=== PATIENT | female | born 2000 | race Caucasian/White ===

== ENCOUNTER 2019-11-01 16:00 | Emergency (ER) | payer OTHER, SELFPAY ==
--- NOTE | 2019-11-01 16:06 | ED.GENADULT ---
HPI - General Adult General Chief complaint: Upper Respiratory Infection Stated complaint: swollen glands/swollen ankles/no appetite/nausea Time Seen by Provider: 11/01/19 16:23 Source: patient Mode of arrival: ambulatory Limitations: no limitations History of Present Illness HPI narrative: 19-year-old female patient presents to the the medical center with complaints of swollen glands for couple of weeks now as well as swelling to left ankle that she noticed yesterday. Patient states she is also had some itching to the back of the left ankle. Denies any fevers, chest pain, shortness of breath. Denies any ear pain, throat pain. Patient states that she has also had decreased appetite as well as just being feeling overall tired. Patient states she did see her primary doctor for this a couple weeks ago and originally they told her just to watch the swelling of the lymph nodes and see if it improves since she was negative for both mono and strep. Patient states that it continued not to improve and went back to see her doctor and they started her on some Bactrim. Patient states she has about 2 days left of the Bactrim but continues not to feel well with the same symptoms and then noticed that her left ankle was swelling. Patient denies or breast-feeding. Related Data Home Medications Medication Instructions Recorded Confirmed sulfamethoxazole-trimethoprim 1 tablet PO BID 11/01/19 11/01/19 Allergies Allergy/AdvReac Type Severity Reaction Status Date / Time No Known Allergies Allergy Unverified 11/01/19 16:33 Review of Systems Review of Systems: Narrative: CONSTITUTIONAL: Denies fever, chills, or sweats. Positive fatigue EYES: Denies visual changes, redness, or discharge. ENT: Denies rhinorrhea, congestion, sore throat, or otalgia. CARDIOVASCULAR: Denies chest pain, palpitations, or edema. RESPIRATORY: Denies cough or dyspnea. GASTROINTESTINAL: Denies abdominal pain, nausea, vomiting, or diarrhea. Positive decrease in appetite GENITOURINARY: Denies dysuria or hematuria. SKIN: Denies rash or itching. MUSCULOSKELETAL: Denies back pain, joint pain, or myalgia. Positive swelling left ankle NEUROLOGIC: Denies headache, numbness, or weakness. PSYCHIATRIC: Denies anxiety or depression. [facility] Past Medical History Medical History (Updated 11/01/19 @ 16:35 by Katie D. Lynn, LAWN SERVICE MANAGER) ADD (attention deficit disorder) Anxiety Bipolar disorder Depression Previous known suicide attempt Comments At the time of my signature I agree with nursing past medical history, surgical, social, and family history. There is no relevant family history pertinent to the presenting complaint. Exam Narrative: Exam Narrative: GENERAL: Well-appearing, well-nourished, and in no acute distress. HEAD: Normocephalic, atraumatic. EYES: PERRLA and EOMI. ENT: Nares clear, no rhinorrhea or epistaxis. Mucous membranes moist. Posterior pharynx no erythema, tonsil enlargement, exudates or lesions present. Bilateral TMs are clear with no erythema or foreign bodies in the canal. NECK: Supple. Very mild lymphadenopathy noted to bilateral anterior cervical nodes. CHEST: Clear to auscultation. No respiratory distress. Patient able talk clear complete sentences HEART: Regular rate and rhythm. No murmur heard. Normal peripheral pulses. ABDOMEN: Soft, nontender, nondistended, normal active bowel sounds. EXTREMITIES: Normal range of motion. Patient has very slight swelling noted to the left ankle as compared to the right. Patient does have a punctate rosales of his bug bite noted to the back of the ankle where she was complaining of the itching. There is no warmth present no surrounding erythema present. SKIN: Warm, dry, no rash. NEURO: No focal deficits. Alert and oriented x3. Course Vital Signs Vital signs: Vital Signs Temperature 36.7 C 11/01/19 16:18 Pulse Rate 77 11/01/19 16:18 Respiratory Rate 20 11/01/19 16:18 Blood Pressure 150/92 H 11/01/19 1
[2019-11-01 16:18] VITALS: BP 150/92; PULSE 77; RESP 20; TEMP 36.7; O2SAT 100
== END 2019-11-01 16:38 | disposition home or self-care (01) ==
PROVIDERS: Emergency Provider Nurse Practitioner Family; PCP Pediatrics
DX: R59.1 Generalized enlarged lymph nodes (principal); Z20.828 Contact with and (suspected) exposure to other viral communicable diseases
CPT/HCPCS: 99211; G0463

== ENCOUNTER 2020-01-10 13:39 | Emergency (ER) | payer OTHER, SELFPAY ==
--- NOTE | ~2020-01-10 | XR_ITS ---
EXAMINATION: XR toe 5th RT min 2V DATE: 01/10/2020 15:07 INDICATION: Right fifth toe swelling. Injury. TECHNIQUE: 3 views of right fifth toe were obtained. COMPARISON: None. FINDINGS: Bone alignment is normal. No fracture. Joint spaces are well maintained. IMPRESSION: 1. No fracture. Reviewed, dictated and finalized at location A. IMPRESSION: 1. No fracture.
--- NOTE | ~2020-01-10 | XR_ITS ---
XR forearm LT 2V DATE: 01/10/2020 15:07 INDICATION: Dropped a piece of wood on the arm. Left arm pain. TECHNIQUE: AP and lateral views COMPARISON: None FINDINGS: No fracture or dislocation, periosteal reaction or bone destruction or radiopaque foreign b augusto or subcutaneous emphysema. Normal alignment at the elbow and wrist joints. IMPRESSION: Negative Reviewed, dictated and finalized at location A. IMPRESSION: Negative
[2020-01-10 13:59] VITALS: BP 141/79; PULSE 65; RESP 20; TEMP 36.5; O2SAT 100
--- NOTE | 2020-01-10 14:49 | ED.GENADULT ---
HPI - General Adult General Chief complaint: Extremity Injury, Lower Stated complaint: right toe injury Time Seen by Provider: 01/10/20 14:49 Source: patient and RN notes reviewed Mode of arrival: ambulatory Limitations: no limitations History of Present Illness HPI narrative: 19-year-old female who presents to [facility] with complaints of pain to her right pinky toe and pain to left forearm patient states on 01/08/2020 she was struck by a large piece of wood on her forearm while at work at [employer] with noted swelling, ecchymosis and pain to dorsal region of the left forearm. Patient states today she hit her right pinky toe on the door at home and states pain rated as a 7 out of 10. Patient states she has been taking ibuprofen for her discomfort. MD complaint: Left forearm and right toe injury Onset (ago): day(s) Location: left, right, upper extremity and lower extremity Radiation: non-radiation Severity: moderate Severity scale (1-10): 5 Quality: aching Pain Consistency: constant Relieving factors: rest Exacerbating factors: movement Associated symptoms: denies other symptoms Treatments prior to arrival: NSAID Related Data Home Medications Medication Instructions Recorded Confirmed No Home Medications 01/10/20 01/10/20 Allergies Allergy/AdvReac Type Severity Reaction Status Date / Time No Known Allergies Allergy Verified 01/10/20 14:19 Review of Systems Review of Systems: Narrative: CONSTITUTIONAL: Denies fever, chills, or sweats. EYES: Denies visual changes, redness, or discharge. ENT: Denies rhinorrhea, congestion, sore throat, or otalgia. CARDIOVASCULAR: Denies chest pain, palpitations, or edema. RESPIRATORY: Denies cough or dyspnea. GASTROINTESTINAL: Denies abdominal pain, nausea, vomiting, or diarrhea. GENITOURINARY: Denies dysuria or hematuria. SKIN: Denies rash or itching. MUSCULOSKELETAL: Denies back pain,positive for left forearm pain and right 5th toe joint pain. NEUROLOGIC: Denies headache, numbness, or weakness. PSYCHIATRIC: Denies anxiety or depression. All systems reviewed & are unremarkable except as noted in HPI and below PMFSH Past Medical History Medical History (Updated 01/10/20 @ 15:48 by Lauren Acosta NP) ADD (attention deficit disorder) Anxiety Bipolar disorder Depression Previous known suicide attempt Surgical History Surgical History (Updated 01/10/20 @ 19:52 by Lauren Acosta NP) No history of previous surgery Social History Social History (Updated 01/10/20 @ 19:47 by Lauren Acosta NP) Tobacco type: e-cigarettes/vaping Living arrangements: with family Gender identity (if verbalized by the patient): Female Comments At time of signature, agree with nursing past medical, surgical, social history. There is no relevant family history pertinent to the presenting complaint Exam Narrative: Exam Narrative: GENERAL: Well-appearing, well-nourished, and in no acute distress. HEAD: Normocephalic, atraumatic. EYES: PERRLA and EOMI. ENT: Nares clear, no rhinorrhea or epistaxis. Mucous membranes moist. NECK: Supple.no lymphadenopathy CHEST: Clear to auscultation. No respiratory distress.SAO2 100% on room air HEART: Regular rate and rhythm. No murmur heard. Normal peripheral pulses. ABDOMEN: Soft, nontender, nondistended, normal active bowel sounds. EXTREMITIES: Normal range of motion.Pain and swelling to left forearm with bruising and discomfort, pain to right 5th toe where she hit her toe today on door. SKIN: Warm, dry, no rash. NEURO: No focal deficits. Alert and oriented x3. Course Vital Signs Vital signs: Vital Signs Temperature 36.5 C 01/10/20 13:59 Pulse Rate 65 01/10/20 13:59 Respiratory Rate 01/10/20 13:59 Blood Pressure 141/79 H 01/10/20 13:59 Pulse Oximetry 100 01/10/20 13:59 Temperature 36.5 C 01/10/20 13:59 Pulse Rate 65 01/10/20 13:59 Respiratory Rate 01/10/20 13:59 Blood Pressure 141/79 H 01/10/20 13:59
== END 2020-01-10 15:52 | disposition home or self-care (01) ==
PROVIDERS: Emergency Provider Registered Nurse
DX: S50.12XA Contusion of left forearm, initial encounter (principal); S93.504A Unspecified sprain of right lesser toe(s), initial encounter; W22.8XXA Striking against or struck by other objects, initial encounter
CPT/HCPCS: 73090; 73660; 99214; G0463

== ENCOUNTER 2020-02-24 17:04 | Emergency (ER) | payer OTHER, SELFPAY ==
--- NOTE | ~2020-02-24 | XR_ITS ---
EXAMINATION: XR abdomen/kub 1V DATE: 02/24/2020 17:38 INDICATION: Right lower quadrant abdominal pain. TECHNIQUE: A supine view of the abdomen on 2 radiographs was obtained. COMPARISON: CT abdomen and pelvis 10/16/2018 FINDINGS: There are no dilated loops of bowel. There is a small volume of stool in the colon. There i s no visible urolithiasis. IMPRESSION: 1. Normal bowel gas pattern. Reviewed, dictated and finalized at location A. ATIENT FACILITY PHYSICAL THERAPIST
[2020-02-24 17:16] VITALS: BP 126/68; PULSE 67; RESP 18; TEMP 36.4; O2SAT 100
--- NOTE | 2020-02-24 17:16 | ED.ABDPAIN ---
HPI - Abdominal Pain General Chief Complaint: Abdominal Pain Stated Complaint: Abdominal Pain Time Seen by Provider: 02/24/20 17:16 Source: patient and RN notes reviewed Mode of arrival: ambulatory Limitations: no limitations History of Present Illness HPI narrative: 19 year old female who presents to [facility] with epigastric abdominal pain located on the right side of mid abdomen area since last night. Patient states that she feels real bloated, has not had a bowel movement since the which she states is very unusual for her. Patient denies any nausea, vomiting or diarrhea, no fevers or any urinary symptoms. Patient states that her doctor suspects she may have IBS but has not been referred to GI specialist or had any testing done. MD elicited complaint: abdominal pain Pertinent past history: constipation Onset (ago): day(s) (1 day) Pain Consistency: constant Location: periumbilical Severity: moderate Pain scale (0-10): 6 Quality: cramping and sharp Radiation: none Migration to: no migration Exacerbating factors: nothing Associated symptoms: constipation and other (bloating) Related Data Date of Last Menstrual Period: 02/15/20 Patient : No Home Medications Medication Instructions Recorded Confirmed No Home Medications 01/10/20 01/10/20 Allergies Allergy/AdvReac Type Severity Reaction Status Date / Time No Known Allergies Allergy Verified 02/24/20 17:15 Review of Systems Review of Systems: Narrative: CONSTITUTIONAL: Denies fever, chills, or sweats. EYES: Denies visual changes, redness, or discharge. ENT: Denies rhinorrhea, congestion, sore throat, or otalgia. CARDIOVASCULAR: Denies chest pain, palpitations, or edema. RESPIRATORY: Denies cough or dyspnea. GASTROINTESTINAL: Positive for right sided gastric abdominal area, denies any nausea vomiting or diarrhea, patient denies any McBurney point tenderness. GENITOURINARY: Denies dysuria or hematuria. SKIN: Denies rash or itching. MUSCULOSKELETAL: Denies back pain, joint pain, or myalgia. NEUROLOGIC: Denies headache, numbness, or weakness. PSYCHIATRIC: Positive for history anxiety or depression. All systems reviewed & are unremarkable except as noted in HPI and below PMFSH Past Medical History Medical History (Updated 02/24/20 @ 18:42 by Lauren Acosta NP) ADD (attention deficit disorder) Anxiety Bipolar disorder Depression Previous known suicide attempt UTI (urinary tract infection) Surgical History Surgical History (Updated 01/10/20 @ 19:52 by Lauren Acosta NP) No history of previous surgery Social History Social History (Updated 02/24/20 @ 18:34 by Lauren Acosta NP) Tobacco type: e-cigarettes/vaping Living arrangements: with family Gender identity (if verbalized by the patient): Female Comments At time of signature, agree with nursing past medical, surgical, social history. There is no relevant family history pertinent to the presenting complaint Exam Narrative: Exam Narrative: GENERAL: Well-appearing, well-nourished, and in no acute distress. HEAD: Normocephalic, atraumatic. EYES: PERRLA and EOMI. ENT: Nares clear, no rhinorrhea or epistaxis. Mucous membranes moist. NECK: Supple.no lymphadenopathy CHEST: Clear to auscultation. No respiratory distress. HEART: Regular rate and rhythm. No murmur heard. Normal peripheral pulses. ABDOMEN: Soft, tender to right mid gastric area, nondistended, patient states she feels bloated and she has not had any stool since the 20 of February,active bowel sounds noted with negative McBurney point tenderness. Patient denies any urinary symptoms with no suprapubic tenderness. EXTREMITIES: Normal range of motion. No edema. SKIN: Warm, dry, no rash. NEURO: No focal deficits. Alert and oriented x3. Course Vital Signs Vital signs: Vital Signs Temperature 36.4 C 02/24/20 17:16 Pulse Rate 67 02/24/20 17:16 Respiratory Rate 18 02/24/20 17:16 Blood Pressure 126/68 02/23
== END 2020-02-24 18:10 | disposition home or self-care (01) ==
PROVIDERS: Emergency Provider Registered Nurse; PCP Pediatrics
DX: K59.00 Constipation, unspecified (principal); F17.200 Nicotine dependence, unspecified, uncomplicated
CPT/HCPCS: 74018; 81003; 99213; G0463

== ENCOUNTER 2020-02-26 16:56 | Emergency (ER) | payer OTHER, SELFPAY ==
--- NOTE | ~2020-02-26 | XR_ITS ---
EXAMINATION: XR abdomen/kub 1V DATE: 02/26/2020 17:47 INDICATION: Right lower quadrant abdominal pain. Constipation. TECHNIQUE: A supine view of the abdomen on 2 radiographs was obtained. COMPARISON: CT abdomen and pelvis 10/16/2018, abdomen radiographs 02/24/2020 FINDINGS: There are no dilated loops of bowel. There is a small volume of stool in the colon. IMPRESSION: 1. Normal bowel gas pattern. Reviewed, dictated and finalized at location A. LOPE SEALER OPERATOR
[2020-02-26 17:04] VITALS: BP 153/93; PULSE 84; RESP 20; TEMP 36.8; O2SAT 99
--- NOTE | 2020-02-26 17:25 | ED.GENADULT ---
HPI - General Adult General Chief complaint: Nausea/Vomiting/Diarrhea Stated complaint: pain in right abdomin Time Seen by Provider: 02/26/20 17:25 Source: patient and RN notes reviewed Mode of arrival: ambulatory Limitations: no limitations History of Present Illness HPI narrative: 19-year-old female presents with complaints of right-mid lower abdomen pain and intermittent nausea for the past 3 days. Lyndsey was here at the [facility] on 02/24/20 and returned due to no improvement. Milk of magnesium (last on 02/24/20) and Ibuprofen (last early this am) without relief. No significant pelvic pain. No vaginal discharge. No concerns for a STD. Lyndsey denies being sexual active. No fever or chills. No vomiting or diarrhea. No flank pain. Exacerbating factors consist of eating and drinking. Denies dysuria, hematuria, and vaginal bleeding. No blood in stool, and constipation. Last BM was 02/23/20, small amount. Denies back pain, headache, and dizziness. Urine output within normal limits. LMP 1.5 weeks ago. Remains active. The patient reports she have not been diagnosed with COVID-19. The patient reports she is not waiting for the results of a COVID-19 lab test. The patient reports she do not have weakness or fatigue. The patient reports she do not have a new or worsening cough or shortness of breath. Denies chest pain. The patient reports she do not have any rhinorrhea, congestion, sore throat, loss of taste, and diarrhea. Tolerating po intake well. Denies recent traveling. Denies concerns for COVID-19 or exposures been home with limited outdoor exposure except for essential household needs and return home. At this time, patient is not suspected of having COVID-19. Some parts of this dictation were generated by voice recognition software and may contain typographical and/or grammatical inaccuracies. Related Data Allergies Allergy/AdvReac Type Severity Reaction Status Date / Time No Known Allergies Allergy Verified 02/26/20 17:27 Review of Systems Review of Systems: Narrative: CONSTITUTIONAL: Denies fever, chills, sweats. EYES: Denies visual changes, redness, discharge. ENT: Denies rhinorrhea, congestion, sore throat, otalgia. CARDIOVASCULAR: Denies chest pain, palpitations. RESPIRATORY: Denies dyspnea, wheezing, cough. GASTROINTESTINAL: Denies vomiting, diarrhea. Complains of right-mid lower abdomen pain, nausea. GENITOURINARY: Denies dysuria, hematuria, abnormal discharge. SKIN: Denies rash or itching. MUSCULOSKELETAL: Denies acute back pain, joint pain, or myalgia. NEUROLOGIC: Denies numbness or focal weakness. PSYCHIATRIC: Denies anxiety or depression. All other systems reviewed & are unremarkable except as noted in HPI and below. [facility] Past Medical History Medical History ADD (attention deficit disorder) Anxiety Bipolar disorder Depression Previous known suicide attempt UTI (urinary tract infection) Surgical History Surgical History No history of previous surgery Family History Family History (Updated 02/26/20 @ 17:35 by SALLY Gates) Unknown Adopted Social History Social History (Updated 02/26/20 @ 17:36 by SALLY Gates) Tobacco type: e-cigarettes/vaping Second hand tobacco smoke exposure: No Alcohol intake: current Substance use: never Occupation/Education: student Gender identity (if verbalized by the patient): Female Comments At time of signature, agree with nurse past medical, surgical, social, and family history. There is no relevant family history pertinent to the presenting complaint. Exam Narrative: Exam Narrative: GENERAL: This is a well-nourished, well-developed patient, in no apparent distress. Talks in full sentences without deficits and ambulates with steady gait without dyspnea. HEAD: normocephalic, atraumatic. EYES: PERRL. Sclera clear/whi
[2020-02-26] MEDS: ONDANSETRON HCL ODT 4 MG TABLET PO (17:48)
== END 2020-02-26 18:15 | disposition home or self-care (01) ==
PROVIDERS: Emergency Provider Nurse Practitioner Family; PCP Pediatrics
DX: R10.31 Right lower quadrant pain (principal)
CPT/HCPCS: 74018; 99213; A9270; G0463

== ENCOUNTER 2020-11-27 18:57 | Emergency (ER) | payer OTHER, SELFPAY ==
[2020-11-27 19:02] VITALS: BP 150/86; PULSE 90; RESP 20; TEMP 37.1; O2SAT 100
--- NOTE | 2020-11-27 19:03 | ED.URI ---
HPI - URI/Sore Throat General Chief Complaint: Upper Respiratory Infection Stated Complaint: sore throat Time Seen by Provider: 11/27/20 19:03 Source: patient History of Present Illness HPI Narrative: patient presents with sore throat. no trouble swallowing no drooling. patient states she has tonsil stones. patient reports a history of tonsil stones and is worried that she may need an antibiotic. MD elicited complaint: sore throat Related Data Home Medications Medication Instructions Recorded Confirmed No Home Medications 11/27/20 11/27/20 Allergies Allergy/AdvReac Type Severity Reaction Status Date / Time No Known Allergies Allergy Verified 11/27/20 19:04 Review of Systems Review of Systems: CONSTITUTIONAL: Denies chills, or sweats. Reports fever and generalized body aches EYES: Denies visual changes, redness, or discharge. ENT: Denies otalgia. Reports nasal congestion runny nose and sore throat CARDIOVASCULAR: Denies chest pain, palpitations, or edema. RESPIRATORY: Denies dyspnea. Reports occasional cough GASTROINTESTINAL: Denies abdominal pain, nausea, vomiting, or diarrhea. GENITOURINARY: Denies dysuria or hematuria. SKIN: Denies rash or itching. MUSCULOSKELETAL: Denies back pain, joint pain, or myalgia. Reports generalized body aches NEUROLOGIC: Denies headache, numbness, or weakness. PSYCHIATRIC: Denies anxiety or depression. Allergic/Immunologic: Comments: At time of signature, agree with nursing past medical, surgical, social and family history. There is no relevant family history pertinent to the presenting complaint PMFSH Past Medical History Medical History ADD (attention deficit disorder) Anxiety Bipolar disorder Depression Previous known suicide attempt UTI (urinary tract infection) Surgical History Surgical History No history of previous surgery Family History Family History (Updated 02/26/20 @ 17:35 by SALLY Gates) Unknown Adopted Social History Social History (Updated 02/26/20 @ 17:36 by SALLY Gates) Tobacco type: e-cigarettes/vaping Second hand tobacco smoke exposure: No Alcohol intake: current Substance use: never Gender identity (if verbalized by the patient): Female Exam Narrative: CONSTITUTIONAL: Denies chills, or sweats. Reports fever and generalized body aches EYES: Denies visual changes, redness, or discharge. ENT: Denies otalgia. Reports nasal congestion runny nose and sore throat CARDIOVASCULAR: Denies chest pain, palpitations, or edema. RESPIRATORY: Denies dyspnea. Reports occasional cough GASTROINTESTINAL: Denies abdominal pain, nausea, vomiting, or diarrhea. GENITOURINARY: Denies dysuria or hematuria. SKIN: Denies rash or itching. MUSCULOSKELETAL: Denies back pain, joint pain, or myalgia. Reports generalized body aches NEUROLOGIC: Denies headache, numbness, or weakness. PSYCHIATRIC: Denies anxiety or depression. HENMT: Mouth/tongue images: 1. tonsil stone 2. tonsil stone Course Vital Signs Vital signs: Vital Signs Temperature 37.1 C 11/27/20 19:02 Pulse Rate 90 11/27/20 19:02 Respiratory Rate 20 11/27/20 19:02 Blood Pressure 150/86 H 11/27/20 19:02 Pulse Oximetry 100 11/27/20 19:02 Temperature 37.1 C 11/27/20 19:15 Pulse Rate 90 11/27/20 19:15 Respiratory Rate 20 11/27/20 19:15 Blood Pressure 150/86 H 11/27/20 19:15 Pulse Oximetry 100 11/27/20 19:15 MDM - URI/Sore Throat Differential Diagnosis Differential diagnosis: Likely upper respiratory infection, croup, otitis media, sinusitis, viral infection, bronchitis, influenza and pharyngitis Medical Records Attestation: I reviewed the patient's medical records. Lab Data Attestation: I reviewed the patient's lab results. Labs: Strep Screen Presumptive Negative
[2020-11-27 19:15] VITALS: BP 150/86; PULSE 90; RESP 20; TEMP 37.1; O2SAT 100
== END 2020-11-27 19:25 | disposition home or self-care (01) ==
PROVIDERS: Emergency Provider Nurse Practitioner Family; PCP Pediatrics
DX: J02.9 Acute pharyngitis, unspecified (principal); F17.200 Nicotine dependence, unspecified, uncomplicated
CPT/HCPCS: 87081; 87880; 99213; G0463

== ENCOUNTER 2020-12-18 18:49 | Emergency (ER) | payer OTHER, SELFPAY ==
[2020-12-18 18:56] VITALS: BP 141/91; PULSE 86; RESP 14; TEMP 37.2; O2SAT 100
[2020-12-18 19:06] VITALS: BP 141/91; PULSE 86; RESP 14; TEMP 37.2; O2SAT 100
--- NOTE | 2020-12-18 19:20 | ED.URI ---
HPI - URI/Sore Throat General Chief Complaint: Upper Respiratory Infection Stated Complaint: congestion and sore throat Time Seen by Provider: 12/18/20 19:21 Source: patient and RN notes reviewed Mode of arrival: ambulatory Limitations: no limitations History of Present Illness HPI Narrative: 20-year-old female presents with concern for burning chest with coughing,, cough, postnasal drainage, ear pain, occasional shortness of breath. Reports history of asthma. She reports recent treatment with antibiotics for tonsillitis. Reports she is waiting to get her of that. She denies current sore throat. She denies body aches, chills, fever, sweats. MD elicited complaint: cough Related Data Home Medications Medication Instructions Recorded Confirmed etonogestrel [Nexplanon] 1 implant SUBDERMAL ONCE 12/18/20 12/18/20 Allergies Allergy/AdvReac Type Severity Reaction Status Date / Time No Known Allergies Allergy Verified 12/18/20 19:04 Review of Systems Review of Systems: CONSTITUTIONAL: Denies malaise, chills, sweats, or fever. EYES: Denies visual changes, redness, or discharge. ENT: Reports rhinorrhea, ear pain. Denies congestion, sinus pain, and sore throat. CARDIOVASCULAR: Denies chest pain, palpitations, or edema. RESPIRATORY: Reports cough, chest burning, dyspnea. GASTROINTESTINAL: Denies abdominal pain, nausea, vomiting, diarrhea SKIN: Denies rash or itching. MUSCULOSKELETAL: Denies myalgia. NEUROLOGIC: Denies headache. All systems reviewed & are unremarkable except as noted in HPI and below PMFSH Past Medical History Medical History ADD (attention deficit disorder) Anxiety Bipolar disorder Depression Previous known suicide attempt UTI (urinary tract infection) Surgical History Surgical History No history of previous surgery Family History Family History (Updated 02/26/20 @ 17:35 by SALLY Gates) Unknown Adopted Social History Social History (Updated 02/26/20 @ 17:36 by SALLY Gates) Tobacco type: e-cigarettes/vaping Second hand tobacco smoke exposure: No Alcohol intake: current Substance use: never Gender identity (if verbalized by the patient): Female Comments At time of signature, agree with nursing past medical, surgical, social and family history. There is no relevant family history pertinent to the presenting complaint Exam Narrative: GENERAL: Well-appearing, well-nourished, and in no acute distress. HEAD: Normocephalic EYES: PERRLA, conjunctivae clear ENT: Nares clear, turbinates erythematous, clear discharge. Mucous membranes moist. TM pearly webster with sharp light reflex bilaterally; no tragal tenderness. Oropharynx not erythematous without lesions. Tonsils not enlarged and without exudate, no drooling, no hoarseness, no trismus, uvula midline. NECK: Supple. No lymphadenopathy CHEST: Clear to auscultation, breath sounds equal, aeration fair. No wheezing, rhonchi, rales, or stridor. No respiratory distress, speaks in full sentences. Cough noted HEART: Regular rate and rhythm. No murmur heard. SKIN: Warm, dry, no rash. NEURO: Alert and oriented x3. PSYCH: Normal mood and affect Course Course Emergency Course: Patient is aware of diagnosis, understands and agrees to treatment plan. Anticipatory guidance given. Patient agrees to follow-up as directed and is aware of reasons to seek care at the emergency department. Portions of this record may have been created with voice recognition software Vital Signs Vital signs: Vital Signs Temperature 98.9 F 12/18/20 18:56 Pulse Rate 86 12/18/20 18:56 Respiratory Rate 14 12/18/20 18:56 Blood Pressure 141/91 H 12/18/20 18:56 Pulse Oximetry 100 12/18/20 18:56 Temperature 98.9 F 12/18/20 19:06 Pulse Rate 86 12/18/20 19:06 Respiratory Rate 14 12/18/20 19:06 Blood Pressure 14
== END 2020-12-18 19:43 | disposition home or self-care (01) ==
PROVIDERS: Emergency Provider Nurse Practitioner; PCP Pediatrics
DX: J40 Bronchitis, not specified as acute or chronic (principal); Z20.822 Contact with and (suspected) exposure to COVID-19
CPT/HCPCS: 87426; 99213; C9803; G0463

== ENCOUNTER 2021-03-19 15:35 | Emergency (ER) | payer OTHER, SELFPAY ==
[2021-03-19 15:40] VITALS: BP 151/73; PULSE 64; RESP 14; TEMP 36.4; O2SAT 100
--- NOTE | 2021-03-19 18:02 | ED.URI ---
HPI - URI/Sore Throat General Chief Complaint: Upper Respiratory Infection Stated Complaint: congestion and chest tight Time Seen by Provider: 03/19/21 17:52 Source: patient and RN notes reviewed Mode of arrival: ambulatory Limitations: no limitations History of Present Illness HPI Narrative: Patient presents today with a 3-day history of cough, rhinorrhea, and lung pain. States cough has improved since onset, but her lung pain is worse when she lies flat. Denies fever, sore throat, ear pain, nasal congestion. She has tried no medication for symptoms prior to arrival. She does have exercise-induced asthma. Patient vapes. elicited complaint: cough Related Data Home Medications Medication Instructions Recorded Confirmed etonogestrel [Nexplanon] 1 implant SUBDERMAL ONCE 12/18/20 03/19/21 Allergies Allergy/AdvReac Type Severity Reaction Status Date / Time No Known Allergies Allergy Verified 03/19/21 15:48 Review of Systems Review of Systems: CONSTITUTIONAL: Denies body aches, fever, chills, or sweats. EYES: Denies visual changes, redness, or discharge. ENT: Denies rhinorrhea, congestion, sore throat, or otalgia. CARDIOVASCULAR: Denies chest pain, palpitations, or edema. RESPIRATORY: Denies dyspnea.+ Cough, chest wall pain GASTROINTESTINAL: Denies abdominal pain, nausea, vomiting, or diarrhea. GENITOURINARY: Denies dysuria or hematuria. SKIN: Denies rash, itching, or wounds. MUSCULOSKELETAL: Denies back pain, joint pain, or myalgia. NEUROLOGIC: Denies headache, numbness, tingling, or weakness. PSYCH: Denies depression or anxiety. [facility] Past Medical History Medical History ADD (attention deficit disorder) Anxiety Bipolar disorder Depression Previous known suicide attempt UTI (urinary tract infection) Surgical History Surgical History No history of previous surgery Family History Family History Unknown Adopted Social History Social History Tobacco type: e-cigarettes/vaping Second hand tobacco smoke exposure: No Alcohol intake: current Substance use: never Gender identity (if verbalized by the patient): Female Comments At time of signature, I have reviewed and agree with nursing past medical, surgical, social and family history unless otherwise noted. Please see nursing chart for further information. There is no relevant family history pertinent to the presenting complaint Exam Narrative: GENERAL: Well-appearing, well-nourished, and in no acute distress. HEAD: Normocephalic, atraumatic. EYES: EOMI. No redness or drainage. Conjunctivae normal. ENT: Mucous membranes pink and moist. Nares clear. No rhinorrhea. TMs normal bilaterally. Throat normal. Uvula midline. NECK: Normal AROM. Supple. No lymphadenopathy. CHEST: No respiratory distress. Clear to auscultation. Chest is nontender. HEART: Regular rate and rhythm. No murmur appreciated. Normal peripheral pulses. EXTREMITIES: Normal range of motion. No edema. SKIN: Warm, dry, no rash. Capillary refill normal. Normal skin turgor. NEURO: No focal deficits. Alert and oriented x3. Gait steady. PSYCH: Normal affect. No signs of depression or anxiety. Course Vital Signs Vital signs: Vital Signs Temperature 97.6 F 03/19/21 15:40 Pulse Rate 64 03/19/21 15:40 Respiratory Rate 14 03/19/21 15:40 Blood Pressure 151/73 H 03/19/21 15:40 Pulse Oximetry 100 03/19/21 15:40 Temperature 97.6 F 03/19/21 15:40 Pulse Rate 64 03/19/21 15:40 Respiratory Rate 14 03/19/21 15:40 Blood Pressure 151/73 H 03/19/21 15:40 Pulse Oximetry 100 03/19/21 15:40 Reviewed. Pt has been instructed to follow up with her PCP regarding her elevated blood pressure today. MDM - URI/Sore Thro
== END 2021-03-19 18:13 | disposition home or self-care (01) ==
PROVIDERS: Emergency Provider Nurse Practitioner; PCP Pediatrics
DX: J40 Bronchitis, not specified as acute or chronic (principal)
CPT/HCPCS: 99213; G0463

== ENCOUNTER 2021-04-25 11:15 | Emergency (ER) | payer OTHER, SELFPAY ==
[2021-04-25 11:21] VITALS: BP 157/84; PULSE 78; RESP 20; TEMP 36.1; O2SAT 99
--- NOTE | 2021-04-25 11:58 | ED.URI ---
HPI - URI/Sore Throat General Chief Complaint: Upper Respiratory Infection Stated Complaint: cough runny nose headache fever Time Seen by Provider: 04/25/21 11:58 Source: patient and family History of Present Illness HPI Narrative: Patient presents with a 2-day history of nasal congestion and cough. Patient reports her sister is COVID-19 positive. Related Data Home Medications Medication Instructions Recorded Confirmed etonogestrel [Nexplanon] 1 implant SUBDERMAL ONCE 12/18/20 04/25/21 Allergies Allergy/AdvReac Type Severity Reaction Status Date / Time No Known Allergies Allergy Verified 04/25/21 11:45 Review of Systems Review of Systems: CONSTITUTIONAL: Denies chills, or sweats. Reports fever and generalized body aches EYES: Denies visual changes, redness, or discharge. ENT: Denies otalgia. Reports nasal congestion runny nose and sore throat CARDIOVASCULAR: Denies chest pain, palpitations, or edema. RESPIRATORY: Denies dyspnea. Reports occasional cough GASTROINTESTINAL: Denies abdominal pain, nausea, vomiting, or diarrhea. GENITOURINARY: Denies dysuria or hematuria. SKIN: Denies rash or itching. MUSCULOSKELETAL: Denies back pain, joint pain, or myalgia. Reports generalized body aches NEUROLOGIC: Denies headache, numbness, or weakness. PSYCHIATRIC: Denies anxiety or depression. Allergic/Immunologic: Comments: At time of signature, agree with nursing past medical, surgical, social and family history. There is no relevant family history pertinent to the presenting complaint PMFSH Past Medical History Medical History ADD (attention deficit disorder) Anxiety Bipolar disorder Depression Previous known suicide attempt UTI (urinary tract infection) Surgical History Surgical History No history of previous surgery Family History Family History Unknown Adopted Social History Social History Tobacco type: e-cigarettes/vaping Second hand tobacco smoke exposure: No Alcohol intake: current Substance use: never Gender identity (if verbalized by the patient): Female Exam Narrative: The patient is a well-developed, well-nourished in no acute distress. SKIN: Skin is warm and dry without erythema, swelling or exudate. There is good turgor. No tenting. HEAD: Atraumatic. Normocephalic. No temporal or scalp tenderness. EYES: Moist and bright. Sclera and conjunctivae normal. No discharge. PERRLA. Extraocular motions intact. Gross visual acuity intact. EARS: Pinna is normal shape and contour. Clear external auditory canals. TM pearly chavira with good cone of light, no erythema or suppuration. Bilateral cerumen noted no gross hearing deficit. NOSE: pink, moist mucosa with good air movement. Clear rhinorrhea without nasal flaring. Septum midline. Mouth: moist mucous membranes. THROAT; mild erythema noted to posterior oropharynx with moderate postnasal drainage. Without exudate or ulceration.. Uvula midline. Normal movement of soft palate. NECK: Supple and nontender with full range of motion without discomfort. No meningeal signs. LUNGS: Equal and bilateral breath sounds without wheezes, rales or rhonchi. CHEST: The chest wall is without retractions or use of accessory muscles. HEART: Has a regular rate and rhythm without murmur, gallops, click or rub. ABDOMEN: Soft, nontender with positive active bowel sounds. No rebound tenderness. EXTREMITIES: Without cyanosis, clubbing or edema. Equal 2+ distal pulses and 2 second capillary refill noted. NEUROLOGIC: alert, active, . The patient moves all extremities with normal muscle strength. Normal muscle tone is noted. Normal coordination is noted. NO focal neurological findings noted. Course Course Level of Care: Express Care Visit Vit
== END 2021-04-25 12:19 | disposition home or self-care (01) ==
PROVIDERS: Emergency Provider Nurse Practitioner Family; PCP Pediatrics
DX: J06.9 Acute upper respiratory infection, unspecified (principal); Z20.822 Contact with and (suspected) exposure to COVID-19
CPT/HCPCS: 99211; G0463

== ENCOUNTER 2021-12-30 16:09 | Emergency (ER) | payer OTHER, SELFPAY ==
[2021-12-30 16:22] VITALS: BP 93/54; PULSE 76; RESP 16; TEMP 36.9; O2SAT 100
[2021-12-30 16:27] VITALS: BP 93/54; PULSE 76; RESP 16; TEMP 36.9; O2SAT 100
--- NOTE | 2021-12-30 16:39 | ED.GENADULT ---
HPI - General Adult General Chief complaint: Skin/Abscess/Foreign Body Stated complaint: bump right lower leg Time Seen by Provider: 12/30/21 16:39 Source: patient Mode of arrival: ambulatory Limitations: no limitations History of Present Illness HPI narrative: 21 y/o female presented for c/o right lower leg blister for 2 days. This site had sutures removed 10 days ago and had healed well. Denies injury or changes to the site. States she tried to pop it but was unsuccessful. Related Data Home Medications Medication Instructions Recorded Confirmed etonogestrel 68 mg subdermal 1 implant subdermal ONCE 12/18/20 12/30/21 implant (Nexplanon) Allergies Allergy/AdvReac Type Severity Reaction Status Date / Time No Known Allergies Allergy Verified 12/30/21 16:19 Review of Systems Review of Systems: CONSTITUTIONAL: Denies body aches, fever, chills, or sweats. EYES: Denies visual changes, redness, or discharge. ENT: Denies rhinorrhea, congestion CARDIOVASCULAR: Denies chest pain, palpitations, or edema. RESPIRATORY: Denies cough or dyspnea. GASTROINTESTINAL: Denies abdominal pain, nausea, vomiting, or diarrhea. SKIN: report skin blister MUSCULOSKELETAL: Denies back pain, joint pain, or myalgia. NEUROLOGIC: Denies headache, numbness, tingling, or weakness. [facility] Past Medical History Medical History ADD (attention deficit disorder) Anxiety Bipolar disorder Depression Previous known suicide attempt UTI (urinary tract infection) Surgical History Surgical History No history of previous surgery Family History Family History Unknown Adopted Social History Social History Tobacco type: e-cigarettes/vaping Second hand tobacco smoke exposure: No Alcohol intake: current Substance use: never Gender identity (if verbalized by the patient): Female Comments At time of signature, I have reviewed and agree with nursing past medical, surgical, social and family history unless otherwise noted. Please see nursing chart for further information. There is no relevant family history pertinent to the presenting complaint Exam Narrative: GENERAL: Well-appearing HEAD: Normocephalic, atraumatic. EYES: conjunctivae clear, and EOMI. ENT: Mucous membranes moist. Oropharynx without edema, erythema or lesions. HEART: Regular rate and rhythm. SKIN: Warm, dry. Right lateral lower leg with approx 4mm x 2mm slightly raised fluid filled blister, nontender, no surrounding induration or drainage NEURO: Alert and oriented x3. Course Course Emergency Course: Patient is aware of diagnosis, understands and agrees to treatment plan. Anticipatory guidance given. Patient agrees to follow-up as directed and is aware of reasons to seek care at the emergency department. Portions of this record may have been created with voice recognition software Level of Care: Express Care Visit Vital Signs Vital signs: Vital Signs Temperature 98.4 F 12/30/21 16:22 Pulse Rate 76 12/30/21 16:22 Respiratory Rate 16 12/30/21 16:22 Blood Pressure 93/54 L 12/30/21 16:22 Pulse Oximetry 100 12/30/21 16:22 Oxygen Delivery Room Air 12/30/21 16:22 Temperature 98.4 F 12/30/21 16:27 Pulse Rate 76 12/30/21 16:27 Respiratory Rate 16 12/30/21 16:27 Blood Pressure 93/54 L 12/30/21 16:27 Pulse Oximetry 100 12/30/21 16:27 Oxygen Delivery Room Air 12/30/21 16:27 Reviewed Medical Decision Making MDM Narrative Medical decision making narrative: Advised supportive measures and wound care, signs/symptoms to go to the ER. Pt is appropriate for outpt treatment and f/u. Differential Diagnosis Differential Diagnosis: abscess, cellulitis, dermatitis, bullous impetigo Vital Signs Vital
== END 2021-12-30 16:50 | disposition home or self-care (01) ==
PROVIDERS: Emergency Provider Nurse Practitioner Family; PCP Family Medicine
DX: S80.821A Blister (nonthermal), right lower leg, initial encounter (principal); X58.XXXA Exposure to other specified factors, initial encounter
CPT/HCPCS: 99212; G0463

== ENCOUNTER 2023-01-23 13:54 | Emergency (ER) | payer OTHER, SELFPAY ==
[2023-01-23 14:04] VITALS: BP 149/84; PULSE 76; RESP 20; TEMP 36.2; O2SAT 100
--- NOTE | 2023-01-23 14:46 | ED.URI ---
HPI - URI/Sore Throat General Chief Complaint: Upper Respiratory Infection Stated Complaint: Chest Congestion Time Seen by Provider: 01/23/23 14:22 Source: patient, RN notes reviewed and old records reviewed Mode of arrival: ambulatory Limitations: no limitations History of Present Illness HPI Narrative: 22 year old female who presents to [facility] care with complaints of one week duration of sore throat with some noted tonsil stones, hoarseness increased with feelings of fatigue, cough and expectoration of greenish sputum. Patient reports history of having mononucleosis 3 times and is being worked up for an autoimmune disorder. MD elicited complaint: cough and sore throat Pertinent past history: asthma and other (tonsil stones) Onset (ago): week(s) (1) Pain scale (0-10): 6 Able to tolerate fluids by mouth: Yes Treatments prior to arrival: ibuprofen Related Data Home Medications Medication Instructions Recorded Confirmed albuterol sulfate 90 mcg/actuation 2 inh inhalation Q4-6H 01/23/23 01/23/23 aerosol inhaler etonogestrel 68 mg subdermal 1 implant subdermal ONCE 01/23/23 01/23/23 implant (Nexplanon) Allergies Allergy/AdvReac Type Severity Reaction Status Date / Time cranberry Allergy Swelling Verified 01/23/23 14:17 Review of Systems Review of Systems: CONSTITUTIONAL: Denies malaise, chills, sweats, or fever.reports fatigue EYES: Denies visual changes, redness, or discharge. ENT: Reports rhinorrhea, congestion, sinus pain,no otalgia, positive for sore throat. CARDIOVASCULAR: Denies chest pain, palpitations, or edema. RESPIRATORY: Reports cough.? Denies dyspnea. GASTROINTESTINAL: Denies abdominal pain, nausea, vomiting, diarrhea SKIN: Denies rash or itching. MUSCULOSKELETAL: Denies myalgia. NEUROLOGIC: Denies headache. All systems reviewed & are unremarkable except as noted in HPI and below PMFSH Past Medical History Medical History (Updated 01/25/23 @ 13:27 by Lauren Acosta NP) Asthma Spastic bladder Surgical History Surgical History (Updated 01/25/23 @ 13:26 by Lauren Acosta NP) Hx of appendectomy Social History Social History (Updated 01/25/23 @ 13:26 by Lauren Acosta NP) Smoking status: Never smoker Substance use type: does not use Gender identity (if verbalized by the patient): Female Comments At time of signature, agree with nursing past medical, surgical, social and family history. There is no relevant family history pertinent to the presenting complaint Exam Narrative: GENERAL: Well-appearing, well-nourished, and in no acute distress. HEAD: Normocephalic EYES: PERRLA, conjunctivae clear ENT: Nares clear, turbinates edematous and erythematous, clear discharge. Mucous membranes moist. TM pearly webster with dull light reflex bilaterally; no tragal tenderness. Oropharynx erythematous without lesions. Tonsils red and enlarged and without exudate, no drooling, no hoarseness, no trismus, uvula midline. NECK: Supple. lymphadenopathy CHEST: Clear to auscultation, breath sounds equal. No wheezing, rhonchi, rales, or stridor. No respiratory distress, speaks in full sentences.cough,SAO2 100% on room air HEART: Regular rate and rhythm. No murmur heard. SKIN: Warm, dry, no rash. NEURO: Alert and oriented x3. PSYCH: Normal mood and affect Course Course Emergency Course: Patient is aware of diagnosis, understands and agrees to treatment plan.? Anticipatory guidance given.? Patient agrees to follow-up as directed and is aware of reasons to seek care at the emergency department. Portions of this record may have been created with voice recognition software Level of Care: Express Care Visit Vital Signs Vital signs: Vital Signs Temperature 36.2 C L 01/23/23 14:04 Pulse Rate 76 01/23/23 14:04 Respiratory Rate 20 01/23/23 14:04 Blood Pressure 149/84 H 01/23/23 14:04 Pulse Oximetry 100 01/23/23 14:04 Oxygen Delivery Ro
== END 2023-01-23 14:51 | disposition home or self-care (01) ==
PROVIDERS: Emergency Provider Registered Nurse; PCP Family Medicine
DX: J02.0 Streptococcal pharyngitis (principal); J45.909 Unspecified asthma, uncomplicated; Z20.822 Contact with and (suspected) exposure to COVID-19
CPT/HCPCS: 87426; 87804; 87880; 99213; C9803; G0463

== ENCOUNTER 2023-02-21 12:24 | Emergency (ER) | payer OTHER, SELFPAY ==
--- NOTE | ~2023-02-21 | CT_ITS ---
EXAMINATION: CT abdomen pelvis w con DATE: 02/21/2023 13:38 INDICATION: Right flank pain. TECHNIQUE: Computed tomography (CT) of the abdomen and pelvis was performed with 100 mL Omnipaque 350 intravenous contrast. Automated exposure control and iterative reconstruction technique were employe d. The dose-length product was 1536.39 mGy-cm. COMPARISON: CT abdomen and pelvis 10/16/2018 FINDINGS: The liver, gallbladder, spleen, pancreas, adrenal glands, and kidneys are normal. There are no dilated loops of bowel. There are changes of appendectomy. There are no pathologically enlarged l ymph nodes. There is no free intraperitoneal fluid. There is mild lumbar spondylosis. There is mild c hronic anterior wedging of T10-T12 vertebral bodies associated with Schmorl's nodes. IMPRESSION: 1. No etiology for the patient's symptoms. Reviewed, dictated and finalized at location E.
[2023-02-21 12:38] VITALS: BP 156/98; PULSE 83; RESP 16; TEMP 36.4; O2SAT 97
[2023-02-21 12:56] LABS: Basophils Absolute Auto 0.1 K/mm3 (0.0-0.1); Basophils Percent Auto 0.4 % (0.2-1.2); Eosinophils Absolute Auto 0.1 K/mm3 (0-0.3); Eosinophils Percent Auto 0.4 % (0-4.4); Hematocrit 39.1 % (37.0-47.0); Hemoglobin 12.8 g/dL (12.0-15.0); Immature Granulocyte Absolute 0.05 K/mm3 (0.00-0.031); Immature Granulocyte Percent A 0.4 % (0-0.5); Lymphocytes Absolute Auto 1.87 K/mm3 (0.9-3.2); Lymphocytes Percent Auto 13.9 % (18.3-44.2); Mean Corpuscular HGB Conc 32.7 g/dl (32-36); Mean Corpuscular Hemoglobin 29.6 pg (26-34); Mean Corpuscular Volume 90.5 fl (80-100); Mean Platelet Volume 9.9 fl (7.4-10.4); Monocytes Absolute Auto 0.9 K/mm3 (0.1-0.6); Monocytes Percent Auto 6.5 % (2.6-8.5); Neutrophils Absolute Auto 10.6 K/mm3 (1.3-6.7); Neutrophils Percent Auto 78.4 % (45.5-73.1); Platelet Count Result 354 k/mm3 (150-375); Red Blood Count 4.32 M/mm3 (4.2-5.4); Red Cell Distribution Width 13.1 % (11.5-14.5); White Blood Count 13.5 K/mm3 (4.5-10.0)
--- NOTE | 2023-02-21 12:56 | ED.FEMALEGU ---
HPI - Female Genitourinary General Chief complaint: Urogenital-Female Stated complaint: AB PAIN, RIGHT SIDE PAIN AFTER UTI Time Seen by Provider: 02/21/23 12:35 History of Present Illness HPI Narrative: 22 y/o F reports for evaluation for dysuria and urinary frequency x4 days and right flank pain that developed last night. Patient states she has a history of a spastic bladder and gets frequent urinary tract infections that usually resolve on their own. She has never had pain like this before and denies history of kidney stones. LMP approximately 10 days ago. Denies known fever but does report nausea and 1 episode of emesis this morning. Denies chest pain or shortness of breath, concern for STDs or vaginal bleeding, diarrhea. States she took ibuprofen earlier today with and vomited immediately after. Unsure of last bowel movement. Related Data Home Medications Medication Instructions Recorded Confirmed albuterol sulfate 90 mcg/actuation 2 inh inhalation Q4-6H 01/23/23 01/23/23 aerosol inhaler etonogestrel 68 mg subdermal 1 implant subdermal ONCE 01/23/23 01/23/23 implant (Nexplanon) Allergies Allergy/AdvReac Type Severity Reaction Status Date / Time cranberry Allergy Swelling Verified 01/23/23 14:17 Review of Systems Review of Systems: CONSTITUTIONAL: Denies fever, chills EYES: Denies visual changes, redness, or discharge. ENT: Denies rhinorrhea, congestion, sore throat, or otalgia. CARDIOVASCULAR: Denies chest pain, palpitations, or edema. RESPIRATORY: Denies cough or dyspnea. GASTROINTESTINAL: See HPI GENITOURINARY: See HPI SKIN: Denies rash or itching. MUSCULOSKELETAL: Denies back pain, joint pain, or myalgia. NEUROLOGIC: Denies headache, numbness, dizziness, or weakness. PSYCHIATRIC: Denies anxiety or depression. [facility] Past Medical History Medical History Asthma Spastic bladder Surgical History Surgical History Hx of appendectomy Social History Social History Smoking status: Never smoker Substance use type: does not use Gender identity (if verbalized by the patient): Female Exam Narrative: GENERAL: Patient appears uncomfortable and writhing in exam bed. She is tearful. HEAD: Normocephalic EYES: PERRLA ENT: Nares clear. Mucous membranes moist. Oropharynx without tonsillar hypertrophy exudate or other lesions. NECK: Supple. CHEST: No respiratory distress. Clear to auscultation, no adventitious breath sounds. HEART: Regular rate and rhythm. No murmur heard. Normal peripheral pulses. ABDOMEN: Normal active bowel sounds. Abdomen soft with mild tenderness in the right flank. No guarding, rebound or rigidity. No CVA tenderness. No peritoneal signs. EXTREMITIES: Normal range of motion. No edema. SKIN: Warm, dry, no rash. NEURO: No focal deficits. Alert and oriented x3. PSYCH: Tearful Course Vital Signs Vital signs: Vital Signs Temperature 97.5 F L 02/21/23 12:38 Pulse Rate 83 02/21/23 12:38 Respiratory Rate 16 02/21/23 12:38 Blood Pressure 156/98 H 02/21/23 12:38 Pulse Oximetry 97 02/21/23 12:38 Temperature 97.5 F L 02/21/23 12:38 Pulse Rate 83 02/21/23 12:38 Respiratory Rate 16 02/21/23 12:38 Blood Pressure 156/98 H 02/21/23 12:38 Pulse Oximetry 97 02/21/23 12:38 MDM - Female Genitourinary MDM Narrative Medical decision making narrative: 22-year-old female with history of spastic bladder and frequent urinary tract infections reports for evaluation for dysuria, urinary frequency and right flank pain. See HPI for further history. Vitals significant for elevated blood pressure, otherwise unremarkable. She is afebrile. Exam significant for the above. Labs significant for leukocytosis of 13.5. Chemistries unremarkable. Urinalysis concerning for urinary t
[2023-02-21 13:02] LABS: Appearance Urine Cloudy (Clear); Bacteria Urine 3+ /hpf; Bilirubin Urine Negative (Negative); Blood Urine 2+ (Negative); Color Urine Yellow (Yellow); Glucose Urine UA Negative (Negative); Ketones Urine Negative (Negative); Leukocyte Esterase Ur 2+ LEU/UL (Negative); Nitrate Urine Negative (Negative); Non Pathogenic Casts 0-2; Protein Urine 1+ mg/dL (Negative); Specific Grav Ur 1.016 (1.001-1.035); Squamous Epithelial Cell Urine Few /hpf (Few); Urobilinogen Urine 0.2 mg/dL (<2.0); WBC Urine >100 /hpf
[2023-02-21 13:03] LABS: Add Urine Microscopic? YES
[2023-02-21 13:06] LABS: Alanine Aminotransferase 16 U/L (6-35); Albumin Level 4.4 g/dL (3.5-5.1); Alkaline Phosphatase 69 U/L (38-126); Anion Gap 5 mmol/L (8-16); Aspartate Amino Transferase 24 U/L (14-36); Bilirubin,Total 0.5 mg/dL (0.2-1.3); Blood Urea Nitrogen 8 mg/dL (7-17); Calcium 9.4 mg/dL (8.4-10.2); Carbon Dioxide 26 mmol/L (22-30); Chloride 106 mmol/L (98-107); Estimated CRCL calculation 132 ml/min; Estimated Glomerular Filt Rate > 60; Glucose 100 mg/dL (65-110); Potassium 3.8 mmol/L (3.4-5.0); Sodium 137 mmol/L (137-145)
[2023-02-21 13:10] LABS: Lipase 32 U/L (23-300)
[2023-02-21] MEDS: SODIUM CHLORIDE 0.9% IV 1,000 ML 999 ML IV CONT (13:11)
[2023-02-21] MEDS: ONDANSETRON INJ 4 MG/2 ML VIAL IV PUSH (13:11)
[2023-02-21] MEDS: MORPHINE SULFATE (*CRX) 4 MG/ML INJ IV PUSH (13:11)
[2023-02-21] MEDS: KETOROLAC 30 MG/ML VIAL (*BKC) IV PUSH (14:04)
== END 2023-02-21 14:58 | disposition home or self-care (01) ==
PROVIDERS: Emergency Medicine; Emergency Provider Physician Assistant; PCP Family Medicine
DX: N12 Tubulo-interstitial nephritis, not specified as acute or chronic (principal); J45.909 Unspecified asthma, uncomplicated; N32.89 Other specified disorders of bladder
CPT/HCPCS: 36415; 74177; 80053; 81001; 81025; 83690; 85025; 87077; 87086; 87186; 96361; 96365; 96375; 99284; J0696; J1885; J2270; J2405; J7030; Q9967

== ENCOUNTER 2023-07-14 12:43 | Emergency (ER) | payer OTHER, SELFPAY ==
--- NOTE | ~2023-07-14 | CT_ITS ---
EXAMINATION: CT soft tissue neck w con DATE: 07/14/2023 16:08 INDICATION: Throat pain, difficulty swallowing TECHNIQUE: Computed tomography (CT) of the neck was performed with 75 mL Omnipaque-350 intravenous co ntrast. Automated exposure control and iterative reconstruction technique were employed. The dose-jyoti gth product was 513.50 mGy-cm. COMPARISON: None FINDINGS: Mildly enlarged palatine tonsils. The thyroid gland is unremarkable. The submandibular and parotid glands are symmetric. Enlarged anterior cervical chain lymph nodes. The superior mediastinum is un remarkable. The airway is unremarkable. Parapharyngeal and pre-glottic fat planes are preserved. Normally enhancing neck arteries. Visualized sinuses and mastoid air cells are well aerated. The lungs are clear. Normal regional bones. IMPRESSION: Mild enlargement of the palatine tonsils. No CT evidence of abscess. Anterior cervical chain lymphadenopathy. Reviewed, dictated and finalized at location K.
[2023-07-14 13:09] VITALS: BP 147/86; PULSE 98; RESP 16; TEMP 36.6; O2SAT 100
[2023-07-14 13:44] LABS: Strep Group A RT-PCR NOT DETECTED (Negative)
[2023-07-14 13:57] LABS: Influenza A QL RT-PCR Negative (Negative); Influenza B QL RT-PCR Negative (Negative); RSV RNA, RT-PCR Negative (Negative); SARS-CoV-2 RNA PCR Negative (Negative)
[2023-07-14 14:22] VITALS: BP 145/106; PULSE 81; RESP 18; O2SAT 100
[2023-07-14] MEDS: SODIUM CHLORIDE 0.9% IV 1,000 ML 999 ML IV CONT (15:12)
[2023-07-14] MEDS: dexAMETHasone SOD PHOS INJ 10 MG/ML 1 ML VIAL IV PUSH (15:12)
[2023-07-14] MEDS: diphenhydrAMINE HCl INJ 50 MG/ML VIAL 25 MG IV PUSH (15:14)
[2023-07-14 15:15] LABS: Basophils Absolute Auto 0.1 K/mm3 (0.0-0.1); Basophils Percent Auto 0.4 % (0.2-1.2); Eosinophils Percent Auto 0.1 % (0-4.4); Hematocrit 41.2 % (37.0-47.0); Hemoglobin 13.5 g/dL (12.0-15.0); Immature Granulocyte Absolute 0.08 K/mm3 (0.00-0.031); Immature Granulocyte Percent A 0.5 % (0-0.5); Lymphocytes Absolute Auto 1.38 K/mm3 (0.9-3.2); Lymphocytes Percent Auto 8.4 % (18.3-44.2); Mean Corpuscular HGB Conc 32.8 g/dl (32-36); Mean Corpuscular Hemoglobin 29.9 pg (26-34); Mean Corpuscular Volume 91.4 fl (80-100); Mean Platelet Volume 9.9 fl (7.4-10.4); Neutrophils Absolute Auto 13.9 K/mm3 (1.3-6.7); Neutrophils Percent Auto 84.6 % (45.5-73.1); Platelet Count Result 345 k/mm3 (150-375); Red Blood Count 4.51 M/mm3 (4.2-5.4); Red Cell Distribution Width 12.8 % (11.5-14.5); White Blood Count 16.4 K/mm3 (4.5-10.0)
[2023-07-14] MEDS: KETOROLAC 30 MG/ML VIAL (*BKC) IV PUSH (15:15)
[2023-07-14] MEDS: METOCLOPRAMIDE HCL INJ 10 MG/2 ML VIAL IV PUSH (15:16)
[2023-07-14 15:22] LABS: Alanine Aminotransferase 16 U/L (6-35); Albumin Level 4.4 g/dL (3.5-5.1); Alkaline Phosphatase 88 U/L (38-126); Anion Gap 5 mmol/L (8-16); Aspartate Amino Transferase 26 U/L (14-36); Bilirubin,Total 0.5 mg/dL (0.2-1.3); Blood Urea Nitrogen 8 mg/dL (7-17); Calcium 9.1 mg/dL (8.4-10.2); Carbon Dioxide 27 mmol/L (22-30); Chloride 105 mmol/L (98-107); Estimated Glomerular Filt Rate > 60; Glucose 93 mg/dL (65-110); Sodium 137 mmol/L (137-145)
--- NOTE | 2023-07-14 15:38 | ED.URI ---
HPI - URI/Sore Throat General Chief Complaint: Upper Respiratory Infection Stated Complaint: sore throat, swelling to neck, migraine Time Seen by Provider: 07/14/23 14:26 Source: patient Mode of arrival: ambulatory Limitations: no limitations History of Present Illness HPI Narrative: Patient is a 22 y/o female who presents to the ED with c/o throat pain and migraine MCKEE. Patient reports she has had pain in her throat for the last 2 days. States her throat feels swollen. She complains of pain with swallowing. She has history of frequent mono. She was seen at urgent care 4 days ago and tested negative for mono. Denies difficulty breathing, fevers, cough, congestion, rhinorrhea, drooling, vomiting. She does also report having a migraine headache for the last 2 days. She has history of migraines and states this feels similar. Pain is diffuse. She tried taking Tylenol this morning and yesterday without relief. Denies photophobia, phonophobia, vision changes, focal weakness or numbness, neck pain. Related Data Home Medications Medication Instructions Recorded Confirmed albuterol sulfate 90 mcg/actuation 2 inh inhalation Q4-6H 01/23/23 01/23/23 aerosol inhaler etonogestrel 68 mg subdermal 1 implant subdermal ONCE 01/23/23 01/23/23 implant (Nexplanon) Allergies Allergy/AdvReac Type Severity Reaction Status Date / Time cranberry Allergy Swelling Verified 01/23/23 14:17 Review of Systems Review of Systems: CONSTITUTIONAL: Denies fever, chills, or sweats. ENT: see HPI CARDIOVASCULAR: Denies chest pain. RESPIRATORY: Denies cough or dyspnea. GASTROINTESTINAL: Denies abdominal pain, nausea, vomiting. MUSCULOSKELETAL: Denies back pain, neck pain. NEUROLOGIC: See HPI. All systems reviewed & are unremarkable except as noted in HPI and below PMFSH Past Medical History Medical History (Updated 07/14/23 @ 17:02 by Ratna Corona PA-C) Asthma Migraines Spastic bladder Surgical History Surgical History Hx of appendectomy Social History Social History Smoking status: Never smoker Substance use type: does not use Gender identity (if verbalized by the patient): Female Exam Narrative: GENERAL: Well appearing, morbidly obese, non-toxic, in no acute distress. HEAD: Normocephalic, atraumatic. EYES: PERRL/EOMI, conjunctiva clear. ENT: Mucous membranes are moist. Minimal posterior pharynx erythema. No tonsillar hypertrophy or exudate. Uvula is midline and nonedematous. No respiratory distress or stridor. No tripoding. no drooling. Maintaining secretions. RESPIRATORY: Airway patent, respirations nonlabored. Clear to auscultation bilaterally, no rales, rhonchi, wheezing. CARDIOVASCULAR: Regular rate and rhythm without murmurs, rubs, or gallops. MUSCULOSKELETAL: Moves all extremities. No gross deformities. SKIN: Warm, dry, normal color. NEURO: A&O X3. Speech clear. PSYCHIATRIC: Anxious, tearful. Normal interaction. Course Vital Signs Vital signs: Vital Signs Temperature 97.9 F 07/14/23 13:09 Pulse Rate 98 07/14/23 13:09 Respiratory Rate 16 07/14/23 13:09 Blood Pressure 147/86 H 07/14/23 13:09 Pulse Oximetry 100 07/14/23 13:09 Oxygen Delivery Room Air 07/14/23 13:09 Temperature 97.9 F 07/14/23 13:09 Pulse Rate 81 07/14/23 14:22 Respiratory Rate 18 07/14/23 14:22 Blood Pressure 145/106 H 07/14/23 14:22 Pulse Oximetry 100 07/14/23 14:22 Oxygen Delivery Room Air 07/14/23 14:22 MDM - URI/Sore Throat MDM Narrative Medical decision making narrative: Patient presented to ED with throat pain and migraine x2 days. Vital signs are stable upon arrival. Patient in no acute distress. No evidence of airway compromise. No stridor or respiratory distress. Exam fairly unremarkable. No evidence of peritonsillar abscess or to
[2023-07-14 16:45] VITALS: BP 147/92; PULSE 88; RESP 18; O2SAT 100
== END 2023-07-14 17:10 | disposition home or self-care (01) ==
PROVIDERS: Emergency Provider Physician Assistant; PCP Family Medicine
DX: J03.90 Acute tonsillitis, unspecified (principal); G43.109 Migraine with aura, not intractable, without status migrainosus; Z20.822 Contact with and (suspected) exposure to COVID-19; J45.909 Unspecified asthma, uncomplicated; N32.89 Other specified disorders of bladder
CPT/HCPCS: 36415; 70491; 80053; 85025; 87637; 87651; 96361; 96374; 96375; 99284; J1100; J1200; J1885; J2765; J7030; Q9967

== ENCOUNTER 2023-07-21 02:40 | Emergency (ER) | payer OTHER, SELFPAY ==
[2023-07-21 02:54] VITALS: BP 130/83; PULSE 78; RESP 15; TEMP 36.5; O2SAT 99
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
[2023-07-21] MEDS: ACETAMINOPHEN 500 MG TABLET 1000 MG PO (04:34)
[2023-07-21] MEDS: IBUPROFEN 600 MG TABLET PO (04:34)
[2023-07-21] MEDS: ONDANSETRON HCL ODT 4 MG TABLET PO (04:34)
== END 2023-07-21 04:45 | disposition home or self-care (01) ==
PROVIDERS: Emergency Provider Student in an Organized Health Care Education/Training Program
DX: R51.9 Headache, unspecified (principal); R11.0 Nausea; V49.60XA Unspecified car occupant injured in collision with unspecified motor vehicles in traffic accident, initial encounter; J45.909 Unspecified asthma, uncomplicated
CPT/HCPCS: 99283; A9270

== ENCOUNTER 2023-10-18 23:40 | Emergency (ER) | payer OTHER, SELFPAY ==
[2023-10-18 23:42] VITALS: BP 161/87; PULSE 91; RESP 20; TEMP 36.7; O2SAT 95
[2023-10-19 03:14] VITALS: BP 146/92; PULSE 100; RESP 15; O2SAT 100
[2023-10-19 04:32] LABS: Basophils Absolute Auto 0.1 K/mm3 (0.0-0.1); Basophils Percent Auto 0.4 % (0.2-1.2); Eosinophils Absolute Auto 0.1 K/mm3 (0-0.3); Eosinophils Percent Auto 0.8 % (0-4.4); Hematocrit 42.4 % (37.0-47.0); Hemoglobin 14.1 g/dL (12.0-15.0); Immature Granulocyte Absolute 0.03 K/mm3 (0.00-0.031); Immature Granulocyte Percent A 0.2 % (0-0.5); Lymphocytes Absolute Auto 3.01 K/mm3 (0.9-3.2); Lymphocytes Percent Auto 21.8 % (18.3-44.2); Mean Corpuscular HGB Conc 33.3 g/dl (32-36); Mean Corpuscular Hemoglobin 30.3 pg (26-34); Mean Platelet Volume 9.7 fl (7.4-10.4); Monocytes Absolute Auto 0.8 K/mm3 (0.1-0.6); Monocytes Percent Auto 5.4 % (2.6-8.5); Neutrophils Absolute Auto 9.9 K/mm3 (1.3-6.7); Neutrophils Percent Auto 71.4 % (45.5-73.1); Platelet Count Result 411 k/mm3 (150-375); Red Blood Count 4.66 M/mm3 (4.2-5.4); Red Cell Distribution Width 12.8 % (11.5-14.5); White Blood Count 13.8 K/mm3 (4.5-10.0)
[2023-10-19] MEDS: MORPHINE SULFATE (*CRX) 4 MG/ML INJ IV PUSH (04:42)
[2023-10-19] MEDS: ONDANSETRON INJ 4 MG/2 ML VIAL IV PUSH (04:42)
[2023-10-19] MEDS: SODIUM CHLORIDE 0.9% IV 1,000 ML 999 ML IV CONT (04:42)
[2023-10-19 04:44] LABS: Alanine Aminotransferase 17 U/L (6-35); Albumin Level 4.7 g/dL (3.5-5.1); Alkaline Phosphatase 84 U/L (38-126); Anion Gap 9 mmol/L (4-12); Aspartate Amino Transferase 24 U/L (14-36); Bilirubin,Total 0.5 mg/dL (0.2-1.3); Blood Urea Nitrogen 11 mg/dL (7-17); Calcium 9.3 mg/dL (8.4-10.2); Carbon Dioxide 24 mmol/L (22-30); Chloride 106 mmol/L (98-107); Estimated CRCL calculation 117 ml/min; Estimated Glomerular Filt Rate > 60; Glucose 96 mg/dL (65-110); Potassium 4.1 mmol/L (3.4-5.0); Sodium 139 mmol/L (137-145)
--- NOTE | 2023-10-19 04:54 | ED.GENADULT ---
HPI - General Adult General Chief complaint: Unspecified Stated complaint: post op bleed Time Seen by Provider: 10/19/23 02:35 History of Present Illness HPI narrative: patient is a 23-year-old female who presents emergency department with chief complaint of bleeding from tonsillectomy. The patient reports she had AT and a done approximately 7 days ago at [facility] in [place] patient reports this evening she knows to trickle down the back of her throat and had some blood out of her mouth patient reports there is a small scab in the left tonsillar fossa Related Data Home Medications Medication Instructions Recorded Confirmed albuterol sulfate 90 mcg/actuation 2 inh inhalation Q4-6H 01/23/23 01/23/23 aerosol inhaler etonogestrel 68 mg subdermal 1 implant subdermal ONCE 01/23/23 01/23/23 implant (Nexplanon) Allergies Allergy/AdvReac Type Severity Reaction Status Date / Time cranberry Allergy Swelling Verified 01/23/23 14:17 Review of Systems Review of Systems: A 10 system review of systems was completed on the patient and is negative except for what is stated in the HPI. Nursing and ancillary documentation was reviewed. [facility] Past Medical History Medical History Asthma Migraines Spastic bladder Surgical History Surgical History Hx of appendectomy Social History Social History Smoking status: Never smoker Substance use type: does not use Gender identity (if verbalized by the patient): Female Exam Narrative: GENERAL: Well-appearing, well-nourished, and in no acute distress. HEAD: Normocephalic, atraumatic. EYES: PERRLA and EOMI. ENT: Nares clear, no rhinorrhea or epistaxis. Mucous membranes moist. eschar present in bilateral tonsillar fauces there is a small scab present to the left tonsillar fossa NECK: Supple. CHEST: Clear to auscultation. No respiratory distress. HEART: Regular rate and rhythm. No murmur heard. Normal peripheral pulses. ABDOMEN: Soft, nontender, nondistended, normal active bowel sounds. EXTREMITIES: Normal range of motion. No edema. SKIN: Warm, dry, no rash. NEURO: No focal deficits. Alert and oriented x3. PSYCH: Normal mood and affect. Course Vital Signs Vital signs: Vital Signs Temperature 36.7 C 10/18/23 23:42 Pulse Rate 91 10/18/23 23:42 Respiratory Rate 20 10/18/23 23:42 Blood Pressure 161/87 H 10/18/23 23:42 Pulse Oximetry 95 10/18/23 23:42 Oxygen Delivery Room Air 10/18/23 23:42 Temperature 36.7 C 10/18/23 23:42 Pulse Rate 100 10/19/23 03:14 Respiratory Rate 15 10/19/23 03:14 Blood Pressure 146/92 H 10/19/23 03:14 Pulse Oximetry 100 10/19/23 03:14 Oxygen Delivery Room Air 10/18/23 23:42 Medical Decision Making MDM Narrative Medical decision making narrative: differential diagnosis includes post tonsillectomy bleed, irritation post surgery, laboratory studies were obtained on the patient showed a hemoglobin of 14.8 electrolytes within normal limits patient was given a L of fluids and also pain control. Patient had no further bleeding in the emergency department the case was discussed with Dr. Mtz who is on-call for Ear Nose Throat after patient had been observed in the emergency department for multiple hours. The patient has had no further bleeding Dr. Mtz recommended the patient call her ENT in the morning continue a soft/liquid diet and follow up in the morning with her ENT Vital Signs Vital Signs: Vital Signs Temperature 36.7 C 10/18/23 23:42 Pulse Rate 91 10/18/23 23:42 Respiratory Rate 20 10/18/23 23:42 Blood Pressure 161/87 H 10/18/23 23:42 Pulse Oximetry 95 10/18/23 23:42 Oxygen Delivery Room Air 10/18/23 23:42 Temperature 36.7 C 10/18/23 23:42 Pulse Rate 100
== END 2023-10-19 05:31 | disposition home or self-care (01) ==
PROVIDERS: Emergency Provider Emergency Medicine
DX: J95.830 Postprocedural hemorrhage of a respiratory system organ or structure following a respiratory system procedure (principal); Z79.899 Other long term (current) drug therapy; Z79.3 Long term (current) use of hormonal contraceptives
CPT/HCPCS: 36415; 80053; 85025; 96361; 96374; 96375; 99284; J2270; J2405; J7030

== ENCOUNTER 2023-12-07 11:52 | Emergency (ER) | payer OTHER, SELFPAY ==
[2023-12-07 11:56] VITALS: BP 130/78; PULSE 79; RESP 20; TEMP 36.1; O2SAT 99
--- NOTE | 2023-12-07 11:57 | ED.URI ---
HPI - URI/Sore Throat General Chief Complaint: Upper Respiratory Infection Stated Complaint: Sore Throat,Sneezing,Chills,Congestion Time Seen by Provider: 12/07/23 11:58 Source: patient, RN notes reviewed and old records reviewed Mode of arrival: ambulatory Limitations: no limitations History of Present Illness HPI Narrative: 23-year-old female presents to the [facility] with complaints of sore throat, sneezing, chills and sinus congestion. Symptoms started about 2 days ago. States that she called in sick to work and needs to make sure she is ok to work. No treatment prior to arrival Onset (ago): day(s) (2) Related Data Home Medications Medication Instructions Recorded Confirmed etonogestrel 68 mg subdermal 1 implant subdermal ONCE 01/23/23 12/07/23 implant (Nexplanon) Allergies Allergy/AdvReac Type Severity Reaction Status Date / Time cranberry Allergy Swelling Verified 12/07/23 12:15 Review of Systems Review of Systems: All systems reviewed & are unremarkable except as noted in HPI and below Constitutional: Constitutional: Reports no additional constitutional complaints Eyes: Eyes: Reports no additional eye complaints ENT: Reports as per HPI, Reports nasal congestion and Reports sore throat Cardiovascular: Cardiovascular: Reports no additional cardiovascular complaints, Denies chest pain and Denies dyspnea Respiratory: Respiratory: Reports no additional respiratory complaints, Denies chest congestion, Denies cough and Denies dyspnea Gastrointestinal: Gastrointestinal: Reports no additional gastrointestinal complaints, Denies abdominal pain, Denies nausea and Denies vomiting Musculoskeletal: Musculoskeletal: Reports no additional musculoskeletal complaints Integumentary/Breasts: Skin/Breast: Reports system reviewed and no additional complaints, except as docu Neurologic: Reports system reviewed and no additional complaints, except as documented Psychiatric: Psychiatric: Reports no additional psychiatric complaints Allergic/Immunologic: Allergic/Immunologic: Reports no additional allergic/immunologic complaints PMFSH Past Medical History Medical History Asthma Migraines Spastic bladder Surgical History Surgical History History of tonsillectomy 10/14 Hx of appendectomy Social History Social History Smoking status: Never smoker Substance use type: does not use Gender identity (if verbalized by the patient): Female Comments At the time of my signature, I reviewed and agree with the nursing past medical, surgical, social, and family history. There is no relevant family history pertinent to the patient complaint. Exam Const: General: cooperative, healthy appearing, comfortable, no acute distress, well developed, alert and well nourished Nutritional Appearance: well nourished and obese Orientation/consciousness: patient oriented x3 Limitations: no limitations HENMT: Head: normal to inspection Ears: hearing grossly normal bilaterally, external ears normal, TM's normal bilaterally, EAC's normal, mastoids normal and no periauricular adenopathy Face/Nose/Sinus: Normal external nose present, Normal nares present, Normal nasal mucous membranes and turbinates present, Nasal discharge present clear bilateral, normal facial exam and face symmetric Face and sinus: normal facial exam and face symmetric Mouth: Yes Normal oral and palatal mucosa present, Yes lip normal and Yes tongue normal Throat: posterior oropharynx normal, uvula midline, tonsils absent and no uvular edema Eyes: General: appearance normal, both eyes and all related structures Alignment and Position: alignment normal Periorbital: periorbital findings normal Pupils: Equal, round and reactive pupils present EOM: EOMs intact bilaterally Neck: Neck: normal visual inspect
[2023-12-07 12:23] LABS: EDSTREPNEGPOS1 Presumptive Negative
== END 2023-12-07 12:27 | disposition home or self-care (01) ==
PROVIDERS: Emergency Provider Nurse Practitioner
DX: J06.9 Acute upper respiratory infection, unspecified (principal); J45.909 Unspecified asthma, uncomplicated
CPT/HCPCS: 87081; 87880; 99213; G0463

== ENCOUNTER 2024-02-27 00:09 | Emergency (ER) | payer OTHER, SELFPAY ==
[2024-02-27 00:15] VITALS: BP 158/72; PULSE 76; RESP 16; TEMP 36.6; O2SAT 100
--- NOTE | 2024-02-27 00:16 | ED_ITS ---
HPI - General Adult General Chief complaint: Skin/Abscess/Foreign Body Stated complaint: staple in finger Time Seen by Provider: 02/27/24 00:11 History of Present Illness HPI narrative: 23-year-old female present to the emergency department for evaluation for a staple in her finger. stable from packaging was acute under the 1st few dermal layers. Related Data Home Medications Medication Instructions Recorded Confirmed etonogestrel 68 mg subdermal 1 implant subdermal ONCE 12/18/20 12/30/21 implant (Nexplanon) etonogestrel 68 mg subdermal 1 implant subdermal ONCE 01/23/23 12/07/23 implant (Nexplanon) Allergies Allergy/AdvReac Type Severity Reaction Status Date / Time cranberry Allergy Swelling Verified 02/27/24 00:19 Review of Systems Review of Systems: All systems reviewed & are unremarkable except as noted in HPI and below PMFSH Past Medical History Medical History Asthma Migraines Spastic bladder Surgical History Surgical History History of tonsillectomy 10/14 Hx of appendectomy Family History Family History (System 12/10/23 @ 11:44 by Berny Mata) Unknown Adopted Social History Social History (System 12/10/23 @ 11:44 by Berny Mata) Smoking status: Never smoker Tobacco type: e-cigarettes/vaping Second hand tobacco smoke exposure: No Alcohol intake: current Substance use: never Substance use type: does not use Living arrangements: with family Occupation/Education: student Gender identity (if verbalized by the patient): Female Exam Narrative: APPEARANCE: Well appearing, no pain, no distress, well-nourished. HEAD: normocephalic, atraumatic. EYES: PERRLA/EOMI, conjunctivae clear. NOSE: Normal no drainage RESPIRATORY: Airway patent, respirations nonlabored. Clear to auscultation bilaterally, no rales, rhonchi, wheezing. CARDIOVASCULAR: Regular rate and rhythm without murmurs rubs or gallops. ABDOMINAL: Soft, nontender, nondistended, normal bowel sounds MUSCULOSKELETAL: Moves all extremities. Strength/ROM intact, No edema, No calf tenderness. NEURO: Alert. Cranial nerves II through XII intact. Good gait. Good coordination SKIN: Small puncture wound from staple after stable was removed. Course Vital Signs Vital signs: Vital Signs Temperature 97.9 F 02/27/24 00:15 Pulse Rate 76 02/27/24 00:15 Respiratory Rate 16 02/27/24 00:15 Blood Pressure 158/72 H 02/27/24 00:15 Pulse Oximetry 100 02/27/24 00:15 Oxygen Delivery Room Air 02/27/24 00:15 Temperature 97.9 F 02/27/24 00:15 Pulse Rate 76 02/27/24 00:15 Respiratory Rate 16 02/27/24 00:15 Blood Pressure 158/72 H 02/27/24 00:15 Pulse Oximetry 100 02/27/24 00:15 Oxygen Delivery Room Air 02/27/24 00:15 Procedures Foreign Body Removal Foreign Body #1: Foreign Body Removal Time: 00:17 Time Out Performed: no Site: right and hand Description of foreign body: other (staple) Sedation/Analgesia: none Technique: manual removal Confirmed by:: direct visualization Complications: none Post-procedure exam: awake, alert Neurovascular: normal distal pulse Medical Decision Making MDM Narrative Medical decision making narrative: [age] old female presenting to the emergency department for evaluation for a stable in her finger. [place] removed. Patient required no suture repair. Patient was updated on treatment plan. All questions concerns were addressed patient was well-appearing at time of discharge. Vital Signs Vital Signs: Vital Signs Temperature 97.9 F 02/27/24 00:15 Pulse Rate 76 02/27/24 00:15 Respiratory Rate 16 02/27/24 00:15 Blood Pressure 158/72 H 02/27/24 00:15 Pulse Oximetry 100 02/27/24 00:15 Oxygen Delivery Room Air 02/27/24 00:15 Temperature 97.9 F 02/27/24 00:15 Pulse Rate 76 02/27/24 00:15 Respiratory Rate 16 02/27/24 00:15 Blood Pressure 158/72 H 02/27/24 00:15 Pulse Oximetry 100 02/27/24 00:15 Oxygen Delivery Room Air 02/27/24 00:15 Discharge Plan Discharge Clinical Impression: Removal of staple Patient Disposition: Home, Self-Care Condition: Stable Instructions: Antibiotic Form Additional Instructions: Wound care as directed. Have close follow-up with your primary care physician. Prescriptions: No Action Nexplanon 68 mg Implant 1 implant SUBDERMAL ONCE Nexplanon 68 mg Implant 1 implant SUBDERMAL ONCE Rx Instructions: as a single dose Follow-up/Referrals: PHYSICIAN NOT ON STAFF,NONSTAFF [Non-Staff] -
== END 2024-02-27 00:29 | disposition home or self-care (01) ==
PROVIDERS: Emergency Provider Emergency Medicine
DX: S61.242A Puncture wound with foreign body of right middle finger without damage to nail, initial encounter (principal); W45.8XXA Other foreign body or object entering through skin, initial encounter
CPT/HCPCS: 15853; 99281; 99282

== ENCOUNTER 2024-03-23 16:55 | Emergency (ER) | payer OTHER, SELFPAY ==
[2024-03-23 16:57] VITALS: BP 141/83; PULSE 64; RESP 18; TEMP 36.5; O2SAT 99
--- NOTE | 2024-03-23 18:08 | ED_ITS ---
HPI - General Adult General Chief complaint: Eye Problems Stated complaint: nail glue in eye Time Seen by Provider: 03/23/24 17:17 History of Present Illness HPI narrative: This is a 23-year-old female presenting with nail glue in her eye. She was attempting to fix her nails when a small piece of fluid foot drop into the inside of her left eye. She then came to the ED for evaluation. She is complaining irritation and burning to her eye. Patient does not were contacts. Related Data Home Medications Medication Instructions Recorded Confirmed etonogestrel 68 mg subdermal 1 implant subdermal ONCE 12/18/20 12/30/21 implant (Nexplanon) etonogestrel 68 mg subdermal 1 implant subdermal ONCE 01/23/23 12/07/23 implant (Nexplanon) Allergies Allergy/AdvReac Type Severity Reaction Status Date / Time cranberry Allergy Swelling Verified 02/27/24 00:19 [facility] Past Medical History Medical History ADD (attention deficit disorder) Anxiety Asthma Bipolar disorder Depression Migraines Previous known suicide attempt Spastic bladder UTI (urinary tract infection) Surgical History Surgical History History of tonsillectomy 10/14 Hx of appendectomy No history of previous surgery Family History Family History Unknown Adopted Social History Social History Smoking status: Never smoker Tobacco type: e-cigarettes/vaping Second hand tobacco smoke exposure: No Alcohol intake: current Substance use: never Substance use type: does not use Living arrangements: with family Occupation/Education: student Gender identity (if verbalized by the patient): Female Exam Narrative: APPEARANCE: No apparent distress. Head: atraumatic. NOSE: Atraumatic NECK: Trachea midline RESPIRATORY: No increased rate of breathing CARDIOVASCULAR: RRR, ABDOMINAL: Non-distended MUSCULOSKELETAl: No obvious deformities NEURO: Alert. Moving 4/4 extremities SKIN:: Warm, dry. Normal color PSYCHIATRIC: Normal affect Eye Exam: Eye exam was performed after the patient received 1 L of normal saline via Gabriele lens. IOP 20 bilaterally, left eye has scleral injection with no foreign bodies noted. No fluorescein uptake on exam. Vision is 20/40 bilaterally. Course Vital Signs Vital signs: Vital Signs Temperature 97.7 F 03/23/24 16:57 Pulse Rate 64 03/23/24 16:57 Respiratory Rate 18 03/23/24 16:57 Blood Pressure 141/83 H 03/23/24 16:57 Pulse Oximetry 99 03/23/24 16:57 Oxygen Delivery Room Air 03/23/24 16:57 Temperature 97.7 F 03/23/24 16:57 Pulse Rate 64 03/23/24 16:57 Respiratory Rate 18 03/23/24 16:57 Blood Pressure 141/83 H 03/23/24 16:57 Pulse Oximetry 99 03/23/24 16:57 Oxygen Delivery Room Air 03/23/24 16:57 Medical Decision Making MDM Narrative Medical decision making narrative: -Course: This is a 23-year-old female presenting with blue in her left eye. The eye was immediately flushed with 1 L of normal saline. After this patient said her eye felt much better. On examination at that time I noted no foreign bodies. She does have some scleral injection but no corneal abrasions. Her vision is 20/40 bilaterally. Patient is requesting discharge as he can go to work. Patient discharged and given Ophthalmology follow-up. -DDX includes but is not limited to: Corneal abrasion, chemical conjunctivitis/scleritis -Shared decision making / Disposition: DC Vital Signs Vital Signs: Vital Signs Temperature 97.7 F 03/23/24 16:57 Pulse Rate 64 03/23/24 16:57 Respiratory Rate 18 03/23/24 16:57 Blood Pressure 141/83 H 03/23/24 16:57 Pulse Oximetry 99 03/23/24 16:57 Oxygen Delivery Room Air 03/23/24 16:57 Temperature 97.7 F 03/23/24 16:57 Pulse Rate 64 03/23/24 16:57 Respiratory Rate 18 03/23/24 16:57 Blood Pressure 141/83 H 03/23/24 16:57 Pulse Oximetry 99 03/23/24 16:57 Oxygen Delivery Room Air 03/23/24 16:57 Discharge Plan Discharge Clinical Impression: Scleritis and episcleritis, Corneal irritation of left eye Patient Disposition: Home, Self-Care Condition: Stable Instructions: Antibiotic Form, Eye Pain (ED) Additional Instructions: Please follow-up with ophthalmology for further management. If you not have an freight delivery driver you can call [employer] [facility] [employer] to arrange follow-up in the next 48 hours. Return to the ED if he develops eye pain, loss of vision or you develop any new worsening symptoms. [employer] [facility] [phone] Prescriptions: No Action Nexplanon 68 mg Implant 1 implant SUBDERMAL ONCE Nexplanon 68 mg Implant 1 implant SUBDERMAL ONCE Rx Instructions: as a single dose Follow-up/Referrals: UNKNOWN,DOCTOR [Primary Care Provider] -
== END 2024-03-23 18:53 | disposition home or self-care (01) ==
PROVIDERS: Emergency Provider Emergency Medicine
DX: H15.102 Unspecified episcleritis, left eye (principal); H15.04 Scleritis with corneal involvement; F98.8 Other specified behavioral and emotional disorders with onset usually occurring in childhood and adolescence; J45.909 Unspecified asthma, uncomplicated; F31.9 Bipolar disorder, unspecified; F41.8 Other specified anxiety disorders
CPT/HCPCS: 99283; J7030

== ENCOUNTER 2024-05-30 11:04 | Emergency (ER) | payer OTHER, SELFPAY ==
[2024-05-30 11:10] VITALS: BP 157/79; PULSE 80; RESP 18; TEMP 36.7; O2SAT 100
--- OUTSIDE RECORDS SUMMARY | 2024-05-30 11:45 | XMS_ITS | Clinical Summary ---
Author Organization [facility] Address [address] [place] [address] Care Team Providers Care Papier Mache Molder Name Role Phone Ilene Morgan MD Primary Care Provider [phone] Source Comments [facility],non-owned Affiliates and Associated Physician Practices is amultiple site organization consisting of ambulatory clinics and hospital sitesin [place], [place], [place] and [place]. This disclosure is being madepursuant to the Care Everywhere program and may not contain all information available regarding this patient. Last updated 18.[facility] Allergies No known active allergies Medications * Be aware that medications may not be up to date on this document. Alwaysverify current medications with the patient. Medication Sig Dispensed Refills Start Date End Date Status traZODone (DESYREL) 50 MG tablet Take 50 mg by mouth 2 times daily Active lamoTRIgine (LAMICTAL) 150 MG tablet Take 150 mg by mouth 2 times daily Active lithium carbonate (LITHOTABS) 300 MG tablet Take 300 mg by mouth 3 times daily Active ARIPiprazole (ABILIFY) 20 MG tablet Take 20 mg by mouth once daily Active Family History * Patient is adopted Medical History Relation Name Comments Other Mother Patient adopted Relation Name Status Comments Mother Other Social History Tobacco Use Types Packs/Day Years Used Date Smoking Tobacco: Never Smokeless Tobacco: Never Sex and Gender Information Value Date Recorded Sex Assigned at Not on file Gender Identity Not on file Sexual Orientation Not on file Last Filed Vital Signs Vital Sign Reading Time Taken Comments Blood Pressure 122/80 06/21/2017 4:10 PM [facility]ATH ATTENDANT Pulse 78 06/21/2017 4:09 PM [facility] ATTENDANT Temperature 36.8 C (98.3 F) 06/21/2017 4:09 PM BATH ATTENDANT Respiratory Rate 16 06/21/2017 4:09 PM BATH ATTENDANT Oxygen Saturation 99% 06/21/2017 4:09 PM BATH ATTENDANT Inhaled Oxygen Concentration - - Weight 112.9 kg (249 lb) 06/21/2017 4:09 PM BATH ATTENDANT Height 175.3 cm (5' 9 ) 06/21/2017 4:09 PM BATH ATTENDANT Body Mass Index 36.77 06/21/2017 4:09 PM BATH ATTENDANT Plan of Treatment Health Maintenance Due Date Last Done Comments PAP SMEAR 1999 HIV SCREENING 07/24/2014 HPV VACCINE (1 - 3-dose series) 07/24/2014 CHLAMYDIA/GONORRHEA SCREENING 2015 HEPATITIS C SCREENING 07/20/2017 DTAP/TDAP/TD VACCINES (1 - Tdap) 07/24/2018 HEPATITIS B VACCINE (1 of 3 - 19+ 3-dose series) 07/24/2018 COVID-19 VACCINE (1 - 2023- season) 2023 INFLUENZA VACCINE (#1) 2023 3, 01/10/2022, 03/14/2021, Additional history exists DEPRESSION SCREENING 04/23/2024 ZOSTER VACCINE (1 of 2) 07/24/2049 HIB VACCINE Aged Out No longer eligi ble based on patient's age to complete this topic MENINGOCOCCAL (Group B) VACCINE Aged Out No longer eligible based on patient's age to complete this topic MENINGOCOCCAL VACCINE Aged Out No hector yunier eligible based on patient's age to complete this topic PNEUMOCOCCAL VACCINE Aged Out No long er eligible based on patient's age to complete this topic Care Teams Papier Mache Molder Relationship Specialty Start Date End Date Ilene Morgan MD PCP - General Pediatrics 09/13/16
--- OUTSIDE RECORDS SUMMARY | 2024-05-30 11:45 | XMS_ITS | Data Portability ---
Author Organization [facility] [place] Address [address] [place] [address] [place] [address] Assessment Encounter Date Assessment Date Assessment LastModified by Organization Details LastModified Time 02/10/2021 02/10/2021 Annual gynecological exam performed. Patient will come back in a year unless there are new symptoms. Not available 02/10/2021 13:31:36 Plan of Treatment Reminders Order Date Submit Date Provider Last Modified By Organization Details Last Modified Time Details Appointments None recorded. Lab test, urine 2019 020 [address], [address], [place], [address], 0 09:40:48 test, urine 2019 [address], [address], [place], [address], 0 15:48:14 hbcab (hepatitis B core Ab) igm, serum 2020 [facility] (Lab), [address], [place], [address], 1 21:56:33 HBsAg (hepatitis B surface Ag), serum 2020 [facility] (Lab), [address], [place], [address], 1 21:56:32 hepatitis C virus Ab, serum 2020 [facility] (Lab), [address], [place], [address], 21:56:32 unlisted lab - HIV 1/2 antigen/ant ibody, reflex confirmatio n 2020 [facility] (Lab), [address], [place], [address], 21:56:33 RPR (rapid plasma reagin), serum 2020 [facility] (Lab), [address], [place], [address], 21:56:33 Referral None recorded. Procedures None recorded. Surgeries None recorded. Imaging None recorded. Medication Orders Nexplanon 68 mg subdermal implant 2019 020 [email or web address] Not available 0 15:48:14 Patient TargetsNo targets recorded. Patient Instructions Encounter Date Encounter Id Patient Instructions Last Modified By Organization Details Last Modified Time 04/05/2020 [id number] [email or web address] Not available 12:02:18 Reason for Referral None Reported. Results Created Date Observation Date Name Description Value Unit Range Abnormal Flag Note LastModifiedBy Organization Detail LastModifiedTime 03/22/20 20 03/22/2020 pregn luis manuel test, urine HCG negati ve Not Available [place] [address], [place], [address], 03/22/2020 14:21:46 04/05/20 20 04/05/2020 pregn luis manuel test, urine HCG negati ve Not Available [place] [address], [place], [address], 04/05/2020 11:47:15 02/11/20 21 02/10/2021 HEPAT ITIS C ANTIB FRANTZ SCREE N, REFLE X TO CONFI RMATI ON hepatitis C antibody Non-re active non-re active This assay was perfo rmed using [employer] n reage nts and test kits. Value s obtai natasha with other assay metho ds or kits canno t be used inter mchugh eably . Not Available [facility] (Lab) [address], [place], [address], 02/11/2021 21:56:32 02/11/20 21 02/10/2021 HEPAT ITIS B SURFA CE ANTIG EN hepatitis B surface antigen Non-re active non-re active This assay was perfo rmed using [employer] reage nts and test kits. Value s obtai natasha with other assay metho ds or kits canno t be used inter mchugh eably . Not Available [facility] (Lab) [address], [place], [address], 02/11/2021 21:56:32 02/11/20 21 02/10/2021 HIV 1/2 ANTIG EN/AN TIBOD Y, REFLE X CONFI RMATI ON HIV Ag-Ab total quant 0.13 idx <1.00 Not Available [facility] (Lab) [address], [place], [address], 02/11/2021 21:56:33 02/11/20 21 02/10/2021 HIV 1/2 ANTIG EN/AN TIBOD Y, REFLE X CONFI RMATI ON HIV Ag-Ab total Non-re active non-re active Not Available [facility] (Lab) [address], [place], [address], 02/11/2021 21:56:33 02/11/20 21 02/10/2021 HIV 1/2 ANTIG EN/AN TIBOD Y, REFLE X CONFI RMATI ON HIV-1 antibody quant 0.08 idx <1.00 Not Available [facility] (Lab) [address], [place], [address], 02/11/2021 21:56:33 02/11/20 21 02/10/2021 HIV 1/2 ANTIG EN/AN TIBOD Y, REFLE X CONFI RMATI ON HIV-1 antibody Non-re active non-re active Not Available [facility] (Lab) [address] [place], [address], 02/11/2021 21:56:33 02/11/20 21 02/10/2021 HIV 1/2 ANTIG EN/AN TIBOD Y, REFLE X CONFI RMATI ON HIV-1 antigen (P24) quant 0.13 idx <1.00 Not Available [facility] (Lab) [address], [place], [address], 02/11/2021 21:56:33 02/11/20 21 02/10/2021 HIV 1/2 ANTIG EN/AN TIBOD Y, REFLE X CONFI RMATI ON HIV-1 antigen (P24) Non-re active non-re active Not Available [facility] (Lab) [address] [place], [address], 02/11/2021 21:56:33 02/11/20 21 02/10/2021 HIV 1/2 ANTIG EN/AN TIBOD Y, REFLE X CONFI RMATI ON HIV-2 antibody quant 0.02 idx <1.00 Not Available [facility] (Lab) [address] [place], [address], 02/11/2021 21:56:33 02/11/20 21 02/10/2021 HIV 1/2 ANTIG EN/AN TIBOD Y, REFLE X CONFI RMATI ON HIV-2 antibody Non-re active non-re active HIV testi ng is perfo rmed using Multi plex- Bead Immun oassa y techn ology . The final overa ll HIV Ag-Ab resul t is deter mined based on the final resul t for each indiv idual naomi te. If any of the naomi jenn has 2 or more repli cates that are REACT SEYMOUR, the final overa ll HIV Ag-Ab resul t is also React seymour. A Non-R eacti ve test resul t at any point in the inves tigat ion of indiv idual subje cts does not precl ude the possi bilit y of expos ure to or infec tion with HIV-1 and/o r HIV-2 . Non-R eacti ve resul ts can occur if the quant ity of marke r prese nt in the sampl e is below the detec tion limit s of the assay . React seymour speci mens must be inves tigat ed by addit ional , more speci fic suppl ement al tests . Speci men confi rmati on will be perfo rmed by the Sosh us HIV 1/2 Suppl ement al Assay . The perfo rmanc e of this assay has not been estab lishe d for neona jenn and the assay shoul d not be used in indiv idual s young er than 2 years of age. Not Available [facility] (Lab) [address], [place], [address], 02/11/2021 21:56:33 02/11/20 21 02/10/2021 RPR SCREE N/REF BRENNAN TITER /FTA RPR screen Nonrea ctive nonrea ctive Not Available [facility] (Lab) [address], [place], [address], 02/11/2021 21:56:33 02/11/20 21 02/10/2021 HEPAT ITIS B CORE, IGM hepatitis B core IgM antibody Negati ve negati ve Not Available [facility] (Lab) [address] [place], [address], 02/11/2021 21:56:33 02/11/20 21 02/10/2021 IMAGE GUIDE D PAP, REFLE X HPV IF ASCUS ONLY image guided Pap, reflex HPV ASCUS only SEE RESULT S BELOW CASE REPOR T: Cytol ogy Gynec ologi liza Repor t Case: [id number] Autho lydia fajardo Provi uma: Juan M Rivas Colle cted: 02/10 1433 CABINET FINISHER Order ing Locat ion: [place] Path[facility] Recei lizz: 02/11 0646 First Scree n: Strut z, Gonzalez am, CT Rescr een: Karen Guzman ret, CT Speci men: Scree lenny Pap - Image d, Cervi x STATE MENT OF ADEQU ACY: Satis facto ry for evalu ation Trans forma tion zone compo nent prese nt FINAL DIAGN OSIS: Negat seymour for Intra epith elial Lesio n or Neftali seymour (NIL) . Elect lachelle coffey rachelle d by Karen Guzman ret, CT on 02/17 at 2:27 PM ----- ----- ----- ----- ----- ----- ----- ----- ----- ----- ----- ----- ----- ----- ----- ----- ----- ---- COMME NT: Note: This speci men was revie wed by a Cytot echno logis t and/o r Patho logis t (as indic ated in this repor t) after evalu ation using the Thinp rep Imagi ng Syste m. CLINI LIZA INFOR MATIO N: Menst rual Statu s: LMP (if appli cable ): Clini liza Histo ry/Pr eviou s Pap: Type of Neopl francisco (if appli cable ): Signi fican t Clini liza Findi ngs: Other Histo ry: Hormo charmaine (if appli cable ): PAP EDUCA HEATHER L NOTE: The Pap Test is a scree lenny test with an inher ent false negat seymour rate. Liqui d-bas e sampl ing may decre ase, but will not elimi oksana, false negat seymour resul ts. A negat seymour resul t does not precl ude the prese nce and/o r devel opmen t of disea se, since the prese nce of abnor mal cells in the sampl e depen ds on the locat ion of the lesio n and sampl ing techn ique. Latoya nued regul ar scree lenny is the best metho d of cance r preve ntion . If repor huma cytol ogic findi ng do not corre late with physi liza and/o r histo rical findi ngs, wen christy gordon michel ion is recom jefferson d, as clini samir olmos nted. Not Available [facility] (Lab) [address], [place], [address], 02/17/2021 15:29:19 02/11/20 21 02/10/2021 TRICH OMONA S VAGIN FRANSISCO (RRNA ) trichomonas vaginalis ribosomal RNA (rrna) Negati ve negati ve Not Available [facility] (Lab) [address], [place], [address], 02/17/2021 15:29:20 02/11/20 21 02/10/2021 CT/GC (GÓMZE) , THINP REP VIAL chlamydia trachomatis, PCR Negati ve negati ve Not Available [facility] (Lab) [address], [place], [address], 02/17/2021 15:29:20 02/11/20 21 02/10/2021 CT/GC (GÓMEZ) , THINP REP VIAL neisseria gonorrhoeae, PCR Negati ve negati ve Not Available [facility] (Lab) [address], [place], [address], 02/17/2021 15:29:20 Result Notes None recorded. Procedures Surgical History Date Name Laterality Status Provider Name and Address Organization Details Recorded Time 04/05/20 20 Control Implant Insertion completed Nicole King, [facility]- [address], [place], [address], [place] [facility] 04/05/2020 12:02:10 Appendectomy completed Michelle Reyes [facility] 03/22/2020 13:50:27 Imaging Results None recorded. Procedure Notes None recorded. Medical Equipment None Reported. Allergies No known drug allergies Medications Name Sig Start Date Stop Date Status Note LastModified by Organization Details LastModified Time amoxicillin 500 mg capsule TAKE 1 CAPSULE BY MOUTH THREE TIMES A DAY FOR 7 DAYS active Not Available Not Available No t Available bupropion HCl SR 150 mg tablet,12 hr sustained-r elease active Not Available Not Available Not Available promethazin e-DM 6.25 mg-15 mg/5 mL oral syrup TAKE 5 ML BY MOUTH EVERY 4 TO 6 HOURS NEEDED FOR COUGH active Not Available Not Available No t Available doxycycline hyclate 100 mg capsule TAKE 1 CAPSULE BY MOUTH TWICE A DAY active Not Available Not Available No t Available clindamycin HCl 300 mg capsule TAKE 2 CAPSULES BY MOUTH THREE TIMES DAILY FOR 7 DAYS active Not Available Not Available No t Available azithromyci n 250 mg tablet TAKE 2 TABLETS BY MOUTH TODAY, THEN TAKE 1 TABLET DAILY FOR 4 DAYS active Not Available Not Available No t Available ibuprofen 800 mg tablet TAKE 1 TABLET BY MOUTH EVERY 6 HOURS NEEDED FOR MODERATE OR MORE SEVERE PAIN active Not Available Not Available No t Available hydrocodone 5 mg-acetamin ophen 325 mg tablet TK 1 T PO Q 6 H PRN P 02/10 completed Not Available Not Available Not Available famotidine 40 mg tablet active Not Available Not Available Not Available prednisone 20 mg tablet TAKE 1 TABLET BY MOUTH ONCE DAILY FOR 5 DAYS 02/10 completed Not Available Not Available Not Available penicillin V potassium 500 mg tablet TAKE 1 TABLET BY MOUTH 4 TIMES DAILY UNTIL GONE 02/10 completed Not Available Not Available Not Available lithium carbonate ER 300 mg tablet,exte nded release active Not Available Not Available Not Available metronidazo le 500 mg tablet TAKE 1 TABLET BY MOUTH TWICE DAILY FOR 7 DAYS active Not Available Not Available No t Available sulfamethox azole 800 mg-trimetho prim 160 mg tablet TAKE 1 TABLET BY MOUTH EVERY 12 HOURS DIRECTED FOR 5 DAYS 02/10 completed Not Available Not Available Not Available acetaminoph en 500 mg tablet active Not Available Not Available Not Available amoxicillin 875 mg tablet 02/10 completed Not Available Not Available Not Available DOK 100 mg capsule TK 1 C PO BID active Not Available Not Available No t Available dicyclomine 20 mg tablet active Not Available Not Available Not Available benzonatate 100 mg capsule 02/10 completed Not Available Not Available Not Available cephalexin 500 mg capsule TAKE ONE CAPSULE BY MOUTH EVERY 8 HOURS DIRECTED FOR 7 DAYS 02/10 completed Not Available Not Available Not Available dexamethaso ne 4 mg tablet 02/10 completed Not Available Not Available Not Available orphenadrin e citrate ER 100 mg tablet,exte nded release TAKE 1 TABLET BY MOUTH TWICE DAILY NEEDED FOR MUSCLE SPASMS (MUSCLE PAIN) active Not Available Not Available No t Available hydroxyzine HCl 25 mg tablet active Not Available Not Available Not Available ibuprofen 600 mg tablet TAKE 1 TABLET BY MOUTH EVERY 6 HOURS NEEDED FOR PAIN WITH FOOD active Not Available Not Available No t Available methylpredn isolone 4 mg tablets in a dose pack FOLLOW PACKAGE DIRECTION S 02/10 completed Not Available Not Available Not Available albuterol sulfate HFA 90 mcg/actuati on aerosol inhaler INHALE 2 PUFFS BY MOUTH EVERY 6 HOURS NEEDED FOR WHEEZING active Not Available Not Available No t Available ondansetron 4 mg disintegrat ing tablet active Not Available Not Available N ot Available naproxen 500 mg tablet active Not Available Not Available Not Available metoclopram espinoza 10 mg tablet TAKE 1 TABLET BY MOUTH 4 TIMES A DAY active Not Available Not Available No t Available azithromyci n 500 mg tablet TAKE 1 TABLET BY MOUTH DAILY FOR 4 DAYS active Not Available Not Available No t Available cyclobenzap rine 5 mg tablet active Not Available Not Available Not Available chlorhexidi ne gluconate 0.12 % mouthwash active Not Available Not Available No t Available spinosad 0.9 % topical suspension PLEASE SEE ATTACHED FOR DETAILED DIRECTION S active Not Available Not Available No t Available Nexplanon 68 mg subdermal implant nexplanon inserted 2019 active Not Available Not Available Not Avai lable Fluzone Quad (PF) 60 mcg (15 mcg x 4)/0.5 mL IM syringe PHARMACIS T ADMINISTE RED IMMUNIZAT ION ADMINISTE RED AT TIME OF DISPENSIN G 02/10 completed Not Available Not Available Not Available Vitals Date Recorded Body height Body mass index (BMI) Body weight Provider Name and Address Organization Details Last Updated DateTime 02/10/2021 175.26 cm 43 kg/m2 420945.38 scotty Zavaleta [place] - [facility] 02/10/2021 13:46:54 Date Recorded Systolic blood pressure Diastolic blood pressure Provider Name and Address Organization Details Last Updated DateTime 02/10/2021 126 mm[Hg] 80 mm[Hg] Nicole King, [facility]- [address], [place], [address], [facility] 02/10/2021 14:05:07 Date Recorded Body height Body mass index (BMI) Body mass index (BMI) Percentile per age and sex Body weight Systolic blood pressure Diastolic blood pressure Provider Name and Address Organization Details Last Updated DateTime 0 180.34 cm 37.2 kg/m2 97 % 129747. 16 g 133 mm[Hg] 70 mm[Hg] Michelle Reyes [facility] 0 13:59:41 Date Recorded Body height Body mass index (BMI) Percentile per age and sex Body mass index (BMI) Body weight Systolic blood pressure Diastolic blood pressure Provider Name and Address Organization Details Last Updated DateTime 0 180.34 cm 98 % 37.5 kg/m2 217248. 35 g 131 mm[Hg] 79 mm[Hg] Michelle Reyes [facility] 0 11:41:03 Social History Question Answer Notes LastModified by Wattpad Details LastModified Time Tobacco Smoking Status Never [facility] 03/22/2020 13:49:32 Are You Blind Or Do You Have Difficulty Seeing? No Information not available 02/10/2021 Are You Deaf Or Do You Have Serious Difficulty Hearing? No Information not available 02/10/2021 What Type Of Diet Are You Following? REGULAR Information not available 02/10/2021 Do You Or Have You Ever Used E-cigarettes Or Vape? Current User Of Electronic Cigarettes [email or web address] Information not available 03/22/2020 Sex: Unknown Functional Status Question Answer Note LastModified by Wattpad Details LastModified Time Are you able to walk? YESWOREST Information not available 02/10/2021 What is your exercise level? Occasional Information not available 02/10/2021 Mental Status None recorded. Family History Nothing Reported. Medical History Condition Response Allergies (Food, seasonal, environmental ) N Other N Blood Transfusion N Drug/Latex Allergies/Reactions N Breast Cancer N Dermatologic Disorders N Lung Disease N Defects or Inherited Disease N Breast Problem N Gestational Diabetes N Hematologic disorders N Anesthesia Complications N History of STI N Deep Vein Thrombosis N Polycystic ovary syndrome N Anxiety Disorder N Autoimmune disease N Arthritis N Infertility N Polyps N Acid Reflux (GERD) N History of abnormal pap N Cancer N Stroke N Varicosities N Neurologic/Epilepsy N Endometriosis N High Cholesterol N Headaches N Fibromyalgia N Kidney Disease N Heart Problems N Kidney or Bladder Problems N Thyroid Problems N GI Problems N Eating Disorder N Anemia N Art (IVF or FET) N Psychiatric Illness N Ovarian Cancer N Diabetes N Pulmonary (TB, Asthma) N Hepatitis/Liver Disease N Eczema N Urinary Tract Infection N Abuse/Domestic Violence N Asthma N Trauma/Violence N Depression/ depression N Heart Disease N Pre-Eclampsia N Hypertension N Osteoporosis N Thrombophilias N Gynecological History Statement/Question Response Sexually Active? Y STIs/STDs N Date of Last Pap Smear Sexual Problems? N Current Control Method Implant 12 LMP Unknown Obstetrics History GPAL:G 0 P 0 0 0 0 Type Value Living 0 Total 0 Past Encounters Encounter ID Performer Location Encounter Start Date Encounter Closed Date Diagnosis/Indication Diagnosis SNOMED-CT Code Diagnosis ICD10 Code Diagnosis Note [id number] Nicole King [facility] [address] [address] 03/22/2020 13:46:23 03/22/2020 17:49:21 test negative 684988764 Z32.02 Premenstru al tension syndrome 97216508 N94.3 Discussed all control options in depth and pt is interested in Nexplanon. Discussed all risks and benefits including irregular unschedule d bleeding. Pt verbalized understand ing and would like to proceed. She is aware that she needs to call us on the 1st day of her period to schedule placement. Full Hx obtained. Does not report any health conditions that would contraindi soham use of E/P or Progestero ne methods. She will complete a urine UPT today. Abstain, then return in 2wks for nexplanon placement if 2nd UPT that day is neg. Time spent in visit is a total of 30 mins with at least 50% of visit consisting of counseling and review of plan of care. [id number] Nicole King [facility] [address] [address] 04/05/2020 11:34:19 04/05/2020 12:03:27 Contraception care management 082603585 Z30.9 test negative 026453357 Z32.02 Insertion of subcutaneous contraceptive 392990559 Z30.9 Patient is here currently on her menses. She was given all the r/b/a of placement of the Nexplanon device and has signed the consent. She is fully aware of all possible side effects of the device and has decided to move forward with placement. Insertion site was cleansed with betadine and 3cc lidocaine used for anesthesia . Device was placed in the left arm per usual fashion w/o complicati on and patient instructed to f/u in one month or earlier if there are any si/sx of infection or hypersensi tivity at the insertion site RTO x 3mos COndoms if become SA x 4-8wks. [id number] Nicole King , [facility] [address],[facility] [place] [address] 02/10/2021 13:34:17 02/10/2021 14:55:52 Gynecologic examination 60827221 Z01.419 Take Calcium with Vitamin D 1200mg daily if not receiving in daily diet. It is strongly advised to have an annual flu shot and up can obtain at most pharmacies . If you have not had a TDap shot in the last 10 years you should obtain one as well. Discussed with patient & provided with informatio n regarding Gardisil vaccine to prevent the 4 strains for HPV that cause cervical cancer if under age 26. Encourage safe sexual practices, to use condoms and limit partners if not already in a monogamous relationsh ip. Do monthly self breast exams. Have mammogram yearly or every other year depending on family history. BRCA testing is now available for patients with strong genetic history of female cancer. If interested contact the office. Engage in daily exercise of low impact aerobic exercise 45-60 minutes 4-5 times weekly. Avoid tobacco and illicit drugs as well as using moderation with alcohol intake less than 1-2 8 oz beverages daily. This lifestyle behavior pattern will lead to less health conditions and longer life span. If BMI greater than 25 weight watchers or dietary consult advised. Patient received above instructio ns, and questions have been answered. If you have any questions please call or respond to this email. Patient was made aware of the patient portal and may obtain a paper copy of today's plan if desired.Up dating all her [employer] testing b/c she is testing and applying to be a kidney donor for her older sister who has polycystic kidney disease and needs a transplant . Primary pap sentSTD sentNexpla non in place left armSTD serum panel ordered Sexually t ransmitted infectious disease 7832416 A64 Health Concerns Section Related Observation LastModified by Organization Detai ls LastModified Time None Recorded Concern Status LastModified by Organization Details LastModified Time None Recorded Advance Directives Directive None Recorded Payers Encounter Date Sequence Insurance Name Policy Number Policy Lira Covered Member ID Lira Member ID Guarantor Name 03/22/2020 1 [employer] (POS) [id number] Cipriano Crabtree [id number] Lyndsey Crabtree 04/05/2020 1 [employer] (POS) [id number] Cipriano Crabtree [id number] Lyndsey Crabtree 02/10/2021 1 [employer] (POS) [id number] Cipriano Crabtree [id number] Lyndsey Bro Notes Date Note Type Note Provider Name and Address Organization Details Recorded Time 03/22/2020 text/html Patient is a 19y o white female here today for a control consult. Looking for period regulation & hormonal regulation as has some PMS the week prior to onset of menses. She is interested in Nexplanon. Does not feel she is a good pill taker. LMP 03/16/2020 Benign PMHx Surgery Hx: Appendectomy 02/2020. UTD vaccinations Menarche age 11yo Menses monthly lasting 2-3d, moderate flow, minimal cramping. Not SA for >1yr. Smoking: Vapes occasionally ELIJAH Abarca- [address], [place], [address], [facility] 03/22/2020 15:25:56 04/05/2020 text/html Here for nexplan on insertion. ELIJAH Abarca-SAI [address], [place], [address], [facility] 04/05/2020 12:03:25 02/10/2021 text/html Annual GYNReport ed bypatient.History: no gynecologic complaints Menstrual cycle:Normal menses (Very light spotty periods on nexplanon) Urinary symptoms:No hematuria; No incontinence Vulva:No genital lesion Vagina:Normal vaginal discharge Breast:No breast pain; No breast lump; No nipple discharge Current Contraception:Sati sfied with current contraception; Monogamous relationship; Implanon (Nexplanon implant); Requests testing for sexually transmitted infections Sexual complaints:No sexual complaints; No pain during intercourse; Normal libido Menopausal Symptoms:No menopausal symptoms; Normal vaginal lubrication Psychological symptoms:No depression; No anxiety; No PMDD Preventive measures:Encourage self breast examination; Encourage regular exercise; Encourage no tobacco use; Encourage regular mammograms starting age 40; Followed with Q3 year pap smear and high risk HPV typing Nicole King [facility]- [address], [place], [address], [facility] 02/10/2021 14:07:00 OBGyn Episode No OBEpisode recorded.
--- OUTSIDE RECORDS SUMMARY | 2024-05-30 11:45 | XMS_ITS | Clinical Summary ---
Author Organization [facility] Address [address] [place] [address] Phone Care Team Providers Care Security Business Analyst Name Role Phone Phoenix Santos MD Unavailable [phone] David Kenney APRN, OCCUPATIONAL THERAPY TEACHER Primary Care Pr ovider Allergies Active Allergy Reactions Criticality Noted Date Comments Cranberry Itching 12/21/2021 Medications albuterol 108 (90 Base) MCG/ACT Aerosol Solution take 2 Puffs by inhalation every 6 hours as needed for Wheezing. 1 g 2 Active etonogestrel (Nexplanon) 68 MG Implant Left back of upper arm Active clotrimazole (LOTRIMIN) 1 % Cream APPLY TO AFFECTED AREA TWICE A DAY FOR 10 DAYS DO NOT APPLY TO FACE 4 Active SUMAtriptan (IMITREX) 50 MG TabletIndication s:Migraine with aura and without status migrainosus, not intractable Take 1 Tablet by mouth once as needed for Migraine. Use as directed. May repeat dose in 2 hours if headache recurs. Max of 2 tablets in 24 hours. 9 Tablet 3 5 Active Active Problems Problem Noted Date Diagnosed Date Marijuana dependence 12/16/2021 Asthma 12/16/2021 Resolved Problems Problem Noted Date Diagnosed Date Resolved Date Pancolitis 12/16/2021 12/18/2021 Diarrhea 12/16/2021 12/18/2021 Encounters Date Type Department Care Team Description 05/23/2024 4:15 PM FINANCIAL REPORTING ADVISOR Office Visit [facility] [place] [address] [place] [address] David Kenney, DIRECTOR OF MOBILE MARKETING, OCCUPATIONAL THERAPY TEACHER Migraine with aura and without status migrainosus, not intractable (Primary Dx) Discharge Disposition: Discharged to home or Selfcare 05/23/2024 Travel from Last 3 Months Immunizations Immunization Administration Dates Next Due DTAP VACCINE 11/14/2004, 1,01/26/2000,12/05,1999 HEP B/HIB Combined Vaccine 01/26/2000 Hepatitis A Vaccine, Pediatric/adolescent, 2 Dose Schedule 11/17/2015,11/24/2013 Hepatitis B Vaccine, Pediatric/adolescent 07/26/2000,03/27/2000 Hib Vaccine,unspecified Formulation 10/26/2000,0 1999,1999 Hpv, Unspecified Formulation 11/24/2013 Inactivated Polio Vaccine 11/14/2004,09/2000,1999,09/26 Influenza Vaccine 01/18/2017 Influenza Vaccine Nasal 01/23/2014 Influenza Vaccine, Quadrivalent, PF 01/21,01/10/2022,12/09/2019,04/23 Influenza Vaccine,unspecifie d Formulation 02/27/2020 Influenza, Seasonal, Injecta ble, Undefined 03/14/2021 MMR Vaccine 11/14/2004,07/26/2000 Meningococcal Group B OMV 03/26/2020,10/09/2019 Meningococcal Vaccine, Unspe cified Formulation 11/17/2015,10/18/2010 Pneumococcal Vaccine Peds - 7 Valent 10/26/2000, 07/26/2000,03/27/2000 Pneumococcal conjugate PCV20 , polysaccharide SUB361 conjugate, adjuvant, PF 08/29/2023 TDAP Vaccine 10/22/2021,03/26/2020,08/19/2009 Varicella Vaccine Live 10/18/2010,07/26/2000 Family History * Patient is adopted Relation Name Status Comments Mother Alive Social History Tobacco Use Types Packs/Day Years Used Date Smoking Tobacco: Never Smokeless Tobacco: Never Tobacco Cessation:Counseling Given: No Alcohol Use Standard Drinks/Week Comments Yes 0 (1 standard drink = 0.6 oz pur e alcohol) socially [employer] Utilities Answer Date Recorded In the past 12 months has th e electric, gas, oil, or water company threatened to shut off services in your home? No 05/23/2024 Social Connection and Isolat ion Panel [NHANES] Answer Date Recorded In a typical week, how many times do you talk on the phone with family, friends, or neighbors? More than three times a week 05/23/2024 How often do you get togethe r with friends or relatives? Never 05/23/2024 How often do you attend chur ch or zoroastrianism services? Never 05/23/2024 Do you belong to any clubs o r organizations such as hoahaoism groups, unions, fraternal or athletic groups, or school groups? No 05/23/2024 How often do you attend meet ings of the clubs or organizations you belong to? Never 05/23/2024 Are you , , di vorced, , never , or living with a partner? Never 05/23/2024 AUDIT-C Answer Date Recorded Q1: How often do you have a drink containing alc ohol? 2-4 times a month 05/23/2024 Q2: How many drinks containi ng alcohol do you have on a typical day when you are drinking? 3 or 4 05/23/2024 Q3: How often do you have si x or more drinks on one occasion? Never 05/23/2024 Overall Financial Resource Strain (CARDIA) Answe r Date Recorded How hard is it for you to pa y for the very basics like food, housing, medical care, and heating? Hard 05/23/2024 PHQ-2 Answer Date Recorded Total Score - Questions 1-9 0 04/25 [facility] [place] of Occupat ional Health - Occupational Stress Questionnaire Answer Date Recorded Do you feel stress - tense, restless, nervous, or anxious, or unable to sleep at night because your mind is troubled all the time - these days? Rather much 05/23/2024 Exercise Vital Sign Answer Date Recorde d On average, how many days pe r week do you engage in moderate to strenuous exercise (like a brisk walk)? 2 days 05/23/2024 On average, how many minutes do you engage in exercise at this level? 30 min 05/23/2024 Hunger Vital Sign Answer Date Recorded Within the past 12 months, y ou worried that your food would run out before you got the money to buy more. Never true 05/23/19 25 Within the past 12 months, t he food you bought just didn't last and you didn't have money to get more. Never true 05/23/2024 PRAPARE - Transportation Answer Date Re corded In the past 12 months, has l ack of transportation kept you from medical appointments or from getting medications? Yes 04/25 In the past 12 months, has l ack of transportation kept you from meetings, work, or from getting things needed for daily living? Yes 05/23/2024 Housing Stability Vital Sign Answer Diego e Recorded In the last 12 months, was t here a time when you were not able to pay the mortgage or rent on time? No 05/23/2024 In the past 12 months, how m any times have you moved where you were living? 1 05/23/2024 At any time in the past 12 m [facility], were you homeless or living in a retirement (including now)? No 05/23/2024 Sexually Active Control Partners Comments Yes Comments No Sex and Gender Information Value Date Recorded Sex Assigned at Not on file Legal Sex Female 9:35 PM CDT Gender Identity Not on file Sexual Orientation Not on file Last Filed Vital Signs Vital Sign Reading Time Taken Comments Blood Pressure 122/88 05/23/2024 4:03 PM FINANCIAL REPORTING ADVISOR Pulse 67 05/23/2024 4:03 PM FINANCIAL REPORTING ADVISOR Temperature 36.2 C (97.2 F) 05/23/2024 4:03 PM FINANCIAL REPORTING ADVISOR Respiratory Rate 18 05/23/2024 4:03 PM FINANCIAL REPORTING ADVISOR Oxygen Saturation 100% 05/23/2024 4:03 PM FINANCIAL REPORTING ADVISOR Inhaled Oxygen Concentration - - Weight 131.5 kg (290 lb) 05/23/2024 4:03 PM FINANCIAL REPORTING ADVISOR Height 182.9 cm (6') 05/23/2024 4:03 PM FINANCIAL REPORTING ADVISOR Body Mass Index 39.33 05/23/2024 4:03 PM FINANCIAL REPORTING ADVISOR Plan of Treatment Health Maintenance Due Date Last Done Comments Influenza Immunization (#1) 12/23/202301/21, 01/10/2022, 02/27/2020, Additional history exists SARS-COV-2 Immunization ( - 2023- season) 2023 08/14/2020, 07/24/2020 DTaP/Tdap/Td Immunization (9 - Td or Tdap) 10/23/2031 10/22/2021, 03/26/2020, 08/19/2009, Additional history exists Respiratory Syncytial Virus (RSV) Immunization (Adult) (1 - 1-dose 75+ series) 07/24/2074 Hepatitis B Immunization Completed 001, 03/27/2000, 01/26/2000 Human Papillomavirus (HPV) Immunization Completed 11/17/2015, 11/24/2013 Meningococcal Immunization (ACWY) Completed 11/17/2015, 10/18/2010 Meningococcal B Immunization Discontinued 03/26/2020, 10/09/2019 Hepatitis C Virus (HCV) Screening Completed 02/10/2021 Pneumococcal Immunization Combined Completed 08/29/2023, 10/26/2000, 07/26/2000, Additional history exists Rotavirus Immunization Aged Out No lo nger eligible based on patient's age to [place] [address] AETNA SOI AETNA SOI [facility] [id number] AETNA SOI Advance Directives * Full Code (Latest Code Status on File) Date Activated Date Inactivated Comments 12/16/2021 8:15 PM 12/18/2021 3:02 PM CPR-Full Tr eatment: FULL ARREST: Attempt Resuscitation/CPR wit intubation and mechanical ventilation. PRE-ARREST: Use entire range of life support measures to stabilize the patient. Care Teams Security Business Analyst Relationship Specialty Start Date End Date David Kenney APRN, [facility] [address] [address] PCP - General Advanced Practice Nurse 07/23/23 Phoenix Santos MD [address] [place] [address] Consulting Physician Gastroenterology 01/12/22
--- OUTSIDE RECORDS SUMMARY | 2024-05-30 11:45 | XMS_ITS | Referral Summary ---
Author Organization [facility] Address [address] [place] [address] Care Team Providers Care Prevention Rn Name Role Phone Jessica Zheng MD Primary Care Provider Encounters Date Type Department Care Team Description 03/19/2024 11:00 AM MIDDLE SCHOOL PROFESSIONAL Ancillary Procedure [facility] at [address] [address] Acute nasopharyngitis; Acute cough 03/18/2024 7:56 PM MIDDLE SCHOOL PROFESSIONAL - 03/18/2024 11:59 PM MIDDLE SCHOOL PROFESSIONAL [place] [address] Acute nasopharyngitis Discharge Disposition: Discharge to home or self care 03/18/2024 7:45 PM MIDDLE SCHOOL PROFESSIONAL Office Visit [facility] at [address] [address] Woody Fofana NP Acute nasopharyngitis (Primary Dx); Acute suppurative otitis media of left ear without spontaneous rupture of tympanic membrane, recurrence not specified; Acute cough from Last 3 Months Allergies Active Allergy Reactions Criticality Noted Date Comments Cranberry Itching Low 12/21/2021 Medications albuterol HFA (PROVENTIL HFA,VENTOLIN HFA,PROAIR HFA) 90 mcg/actuation inhaler albuterol sulfate HFA 90 mcg/actuation aerosol inhaler INHALE 1 TO 2 PUFFS BY MOUTH EVERY 4 HOURS NEEDED FOR COUGH Active etonogestreL (Nexplanon) 68 mg implant Nexplanon 68 mg subdermal implant nexplanon inserted Active ondansetron ODT (ZOFRAN-ODT) 4 mg disintegrating tablet Take 1 tablet (4 mg total) by mouth every 8 (eight) hours as needed for nausea or vomiting 20 tablet 09/16/19 21 Active Additional Information Patient not taking.Reported on 03/15/2022 metoclopramide (REGLAN) 10 mg tablet Take 1 tablet (10 mg total) by mouth every 6 (six) hours as needed (Nausea, vomiting) 20 tablet 09/16/19 21 Active Additional Information Patient not taking.Reported on 03/15/2022 dicyclomine (BENTYL) 20 mg tablet Take 1 tablet (20 mg total) by mouth every 8 (eight) hours as needed (Crampy abdominal pain) 10 tablet 09/16/19 21 Active Additional Information Patient not taking.Reported on 03/15/2022 acetaminophen (TYLENOL) 500 mg tablet Take 2 tablets (1,000 mg total) by mouth every 8 (eight) hours as needed for pain for up to 20 doses 40 tablet 09/16/19 21 Active Additional Information Patient not taking.Reported on 11/03/2021 famotidine (PEPCID) 40 mg tablet Take 1 tablet (40 mg total) by mouth nightly for 14 days 14 tablet 09/16/19 21 Active Additional Information Patient not taking.Reported on 03/15/2022 naproxen (NAPROSYN) 500 mg tabletIndications: Pain Take 1 tablet (500 mg total) by mouth 2 (two) times a day with meals 20 tablet 10/06/19 21 Active Additional Information Patient not taking.Reported on 03/15/2022 cyclobenzaprine (FLEXERIL) 5 mg tabletIndications: Muscle Spasm Take 1 tablet (5 mg total) by mouth 2 (two) times a day as needed for muscle spasms 6 tablet 10/06/19 21 Active Additional Information Patient not taking.Reported on 03/15/2022 chlorhexidine (PERIDEX) 0.12 % solution Apply 15 mL to the mouth or throat 2 (two) times a day Twice daily gargle for 2 minutes, swish around in mouth, then spit out. Collaborating physician Rakesh Kong MD 120 mL 1 11/29/19 21 Active Additional Information Patient not taking.Reported on 11/03/2021 ondansetron ODT (ZOFRAN-ODT) 4 mg disintegrating tablet Take 1 tablet (4 mg total) by mouth every 8 (eight) hours as needed for nausea Collaborating physician Rakesh Kong MD 20 tablet 02/04/20 Active Additional Information Patient not taking.Reported on 03/15/2022 promethazine-DM (PROMETHAZINE-DM) 1.25-3 mg/mL syrup Take 5 mL by mouth 4 (four) times a day as needed for cough Collaborating physician Rakesh Kong MD 118 mL 02/04/20 Active Additional Information Patient not taking.Reported on 03/15/2022 Active Problems Problem Noted Date Diagnosed Date Chronic tonsillitis 03/15/2022 Assessment & Plan (03/15/2022 2:49 PM MIDDLE SCHOOL PROFESSIONAL): Will obtain records [facility], [facility] by [place] and Urgent care on [place], [facility]. Acute tonsillitis due to infectious mononucleosi s 02/03/2022 Nausea and vomiting 02/03/2022 Elevated LFTs 02/03/2022 Asthma 12/16/2021 Marijuana dependence (CMS/HCC) 12/16/2021 Dental caries 11/30/2020 Assessment & Plan (11/30/2020 11:13 AM CDT): Continue Amoxicillin and steroids and Peridex after meals and before bedtime Have Dental evaluation Will obtain records from the [facility] regarding Tonsillar infections and consider proceeding with Tonsillectomy and Adenoidectomy based on their information Tonsillitis 11/28/2020 Assessment & Plan (11/30/2020 11:13 AM CDT): Continue Amoxicillin and steroids and Peridex after meals and before bedtime Have Dental evaluation Will obtain records from the [facility] regarding Tonsillar infections and consider proceeding with Tonsillectomy and Adenoidectomy based on their information Appendicitis 02/27/2020 Assessment & Plan (03/16/2020 11:51 AM MIDDLE SCHOOL PROFESSIONAL): Diet as tolerated. Okay to return to work with light duty. No heavy lifting greater than 20 lb for 4 weeks. No submerging incisions for 4 weeks. Please call for any further questions or concerns. Abscess of ear canal, right 06/12/2018 Assessment & Plan (06/20/2018 12:35 PM MIDDLE SCHOOL PROFESSIONAL): Continue the antibiotic cream to right ear Follow up in 1 week for recheck Assessment & Plan (06/12/2018 2:56 PM MIDDLE SCHOOL PROFESSIONAL): Avoid water to right ear Apply antibiotic ointment to the right ear canal 6 times daily Ear culture taken today Stop Keflex Start Levaquin, stop if muscle or tendon aches occur and call the office. Perineal pain 05/18/2016 Incomplete emptying of bladder 12/25/2013 Abnormal electrocardiogram 07/21/2009 Immunizations Name Administration Dates Next Due DTaP 11/14/2004, 1,01/26/2000,12/05,1999 HPV, Unspecified 11/17/2015,11/24/2013 Hep A, Pediatric 11/17/2015,11/24/2013 Hep B / HiB 01/26/2000 Hep B, Adolescent or Pediatric 07/26/2000,1999 HiB 10/26/2000, 1,1999,12/05,1999,1999 IPV 11/14/2004, 1,1999,09/26 Influenza LAIV (Nasal) 01/23/2014 Influenza, Quadrivalent, Spl it, Preservative Free, Intramuscular 01/10/2022 Influenza, Unspecified 02/27/2020,02/27/2020,09/2019 MMR 11/14/2004,07/26/2000 Meningococcal ACWY, Unspecified 11/17/2015,10/18 Meningococcal B, OMV (Bexsero) 03/26/2020,2019 Pneumococcal Conjugate 7-Valent 10/26/2000,07/26,03/27/2000 Tdap 10/22/2021,03/26/2020,08/19/2009 Varicella 10/18/2010,07/26/2000 Social History Tobacco Use Types Packs/Day Years Used Date Smoking Tobacco: Every Day Vaping Smokeless Tobacco: Never Tobacco Cessation:Ready to Q uit: Not Asked; Counseling Given: Not Answered Comments:occasional vape Alcohol Use Standard Drinks/Week Comments Yes 0 (1 standard drink = 0.6 oz pur e alcohol) scially Comments No Sex and Gender Information Value Date Recorded Sex Assigned at Not on file Legal Sex Female 10:18 AM MIDDLE SCHOOL PROFESSIONAL Gender Identity Not on file Sexual Orientation Not on file Occupation Industry Job Start 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 Not on file Not on file Not on file Last Filed Vital Signs Vital Sign Reading Time Taken Comments Blood Pressure 138/90 03/18/2024 7:56 PM MIDDLE SCHOOL PROFESSIONAL Pulse 80 03/18/2024 7:56 PM MIDDLE SCHOOL PROFESSIONAL Temperature 37.1 C (98.7 F) 03/18/2024 7:56 PM MIDDLE SCHOOL PROFESSIONAL Respiratory Rate 18 03/18/2024 7:56 PM MIDDLE SCHOOL PROFESSIONAL Oxygen Saturation 98% 03/18/2024 7:56 PM MIDDLE SCHOOL PROFESSIONAL Inhaled Oxygen Concentration - - Weight 130.1 kg (286 lb 14.4 oz) 03/18/2024 7:56 PM MIDDLE SCHOOL PROFESSIONAL Height 182.9 cm (6' 0.01 ) 03/18/2024 7:56 PM CS T Body Mass Index 38.9 03/18/2024 7:56 PM MIDDLE SCHOOL PROFESSIONAL Plan of Treatment Not on file Procedures Procedure Name Priority Date/Time Associated Diagnosis Comments XR CHEST PA LATERAL 2 VIEWS Schedule FLORENCE, Read FLORENCE (Appt Today, Awaiting Results) 03/19/2024 10:51 AM MIDDLE SCHOOL PROFESSIONAL Acute nasopharyngitis Acute cough INFLUENZA A/B, RSV, AND COVID-19 PCR Routine 03/18/2024 7:56 PM MIDDLE SCHOOL PROFESSIONAL Acute nasopharyngitis HEPATITIS C ANTIBODY Routine 01/26/2021 7:28 AM CDT Encounter for donation of kidney from Last 3 Months or Most Recently Relevant to Health Maintenance Results * XR Chest PA Lateral 2 Views (03/19/2024 10:51 AM MIDDLE SCHOOL PROFESSIONAL) Anatomical Region Laterality Modality Body, Chest N/A Digital Radiogra phy 03/19/2024 12:5 4 PM MIDDLE SCHOOL PROFESSIONAL Narrative 03/19/2024 12:55 PM MIDDLE SCHOOL PROFESSIONAL EXAM DESCRIPTION: XR CHEST PA LATERAL 2 VIEWS REASON FOR STUDY: cough Pt complains of cough x 2 days. No chest surgery. Pt has asthma, no heart disease. Currently vapes. Unable to remove piercings TECHNIQUE: PA and lateral radiographic view(s) of the chest. COMPARISON: 01/26/2021 and 11/09/2019 FINDINGS: LUNGS: No focal opacity, pleural effusion, or pneumothorax. HEART/MEDIASTINUM: Cardiac silhouette normal in size. Mediastinal and hilar contours appear normal. LINES/TUBES: None. BONES: No acute osseous abnormality. IMPRESSION: No acute cardiopulmonary abnormality. THIS IS AN ELECTRONICALLY VERIFIED FINAL REPORT 03/19/2024 12:55 PM - Electronically signed by Beatriz Crum M.D. TW T: Report ID: [id number] Reading Location: [id number] Procedure Note Beatriz Crum MD - 03/19/2024 EXAM DESCRIPTION: XR CHEST PA LATERAL 2 VIEWS REASON FOR STUDY: cough Pt complains of cough x 2 days. No chest surgery. Pt has asthma, no heart disease. Currently vapes. Unable to remove piercings TECHNIQUE: PA and lateral radiographic view(s) of the chest. COMPARISON: 01/26/2021 and 11/09/2019 FINDINGS: LUNGS: No focal opacity, pleural effusion, or pneumothorax. HEART/MEDIASTINUM: Cardiac silhouette normal in size. Mediastinal andhilar contours appear normal. LINES/TUBES: None. BONES: No acute osseous abnormality. IMPRESSION: No acute cardiopulmonary abnormality. THIS IS AN ELECTRONICALLY VERIFIED FINAL REPORT 03/19/2024 12:55 PM - Electronically signed by Beatriz Crum M.D. TW T: Report ID: [id number] Reading Location: [id number] Woody Fofana NP IMG XR PROCEDURES Final Result * Influenza A/B, RSV, and COVID-19 PCR Nasopharyngeal (03/18/2024 7:56 PM MIDDLE SCHOOL PROFESSIONAL) COVID-19 RNA Negative Negative Influenza A RNA Negative Negative [facility] Influenza B RNA Negative Negative [facility] RSV RNA Negative Negative [facility] Comment: Interpretive data: Testing performed by [facility]. This test is performed using the [employer] Xpert Xpress CoV-2/Flu/RSV plus assay. This is a multiplex, real-time reverse transcriptase PCR assay intended for the qualitative detection of nucleic acid from SARS-CoV-2, influenza A, influenza B, and respiratory syncytial virus. This assay has been cleared by the [place] Food and Drug administration. The performance characteristics have been verified by the [facility]. Results must be considered in the clinical context, and a negative result does not rule out infection. Interpretive Data last revised 2023 Nasopharyngeal 03/18/2024 7: 56 PM MIDDLE SCHOOL PROFESSIONAL 03/18/2024 9:44 PM MIDDLE SCHOOL PROFESSIONAL Narrative [facility] - 03/18/2024 10:24 PM MIDDLE SCHOOL PROFESSIONAL Is the Patient experiencing symptoms consistent with COVID?->Yes Woody Fofana NP LAB MICROBIOLOGY - GENERAL ALISA GARCIA Final Result Performing Organization Address City/[facility]/ZIP Co de Phone Number [facility] [address] [address] Department [place] [address] [place] * Hepatitis C antibody (01/26/2021 7:28 AM CDT) Pathologist [facility] Hep C Ab Nonreactive Nonreactive [facility] Comment:Antibodies to HCV no t detected. Does NOT exclude the possibility of recent exposure to HCV. Blood 01/26/2021 7:28 AM CDT 01/26/2021 7:43 AM CDT Paul Sanders MD LAB MICROBIOLOGY - GENERAL ALISA GARCIA Edited Result - Final [facility] [address] Department [place] [address] from Last 3 Months or Most Recently Relevant to Health Maintenance Insurance [facility] [place] [place] [address] [facility] ANTHEM ACCESS CHOICE AETNA [facility] Advance Directives For more information, please contact: [phone] * Full Code (Latest Code Status on File) Date Activated Date Inactivated Comments 02/27/2020 2:25 AM 02/28/2020 12:24 AM Care Teams Prevention Rn Relationship Specialty Start Date End Date Jessica Zheng MD PCP - General Family Medicine 02/03/22
--- OUTSIDE RECORDS SUMMARY | 2024-05-30 11:45 | XMS_ITS | Referral Summary ---
Author Organization [facility] Address [address] [place] [address] Care Team Providers Care Repeater Chief Name Role Phone Ilene Morgan MD Primary Care Provider Source Comments [facility],non-owned Affiliates and Associated Physician Practices is amultiple site organization consisting of ambulatory clinics and hospital sitesin [place], [place], [place] and [place]. This disclosure is being madepursuant to the Care Everywhere program and may not contain all information available regarding this patient. Last updated 18.[facility] Allergies No known active allergies Medications * [...] 20 mg by mouth once daily Active Social History Tobacco Use Types Packs/Day Years Used Date Smoking Tobacco: Never Smokeless Tobacco: Never Sex and Gender Information Value Date Recorded Sex Assigned at Not on file Gender Identity Not on file Sexual Orientation Not on file Last Filed Vital Signs Vital Sign Reading Time Taken Comments Blood Pressure 122/80 06/21/2017 4:10 PM CRANE MANAGER Pulse 78 06/21/2017 4:09 PM CRANE MANAGER Temperature 36.8 C (98.3 F) 06/21/2017 4:09 PM CRANE MANAGER Respiratory Rate 16 06/21/2017 4:09 PM CRANE MANAGER Oxygen Saturation 99% 06/21/2017 4:09 PM CRANE MANAGER Inhaled Oxygen Concentration - - Weight 112.9 kg (249 lb) 06/21/2017 4:09 PM CRANE MANAGER Height 175.3 cm (5' 9 ) 06/21/2017 4:09 PM CRANE MANAGER Body Mass Index 36.77 06/21/2017 4:09 PM CRANE MANAGER Plan of Treatment Not on file Care Teams Repeater Chief Relationship Specialty Start Date End Date Ilene Morgan MD PCP - General Pediatrics 09/13/16
--- OUTSIDE RECORDS SUMMARY | 2024-05-30 11:45 | XMS_ITS | Clinical Summary ---
Author Organization [facility] Medical Office Building B Address [address] [place] [address] Care Team Providers Care Mamma Logist Name Role Phone Jessica Zheng MD Primary Care Provider Allergies Active Allergy Reactions Criticality Noted Date [...] physician Rakesh Kong MD 118 mL 02/04/20 22 Active Additional Information Patient not taking.Reported on 03/15/2022 Active Problems Problem Noted Date Diagnosed Date Chronic tonsillitis 03/15/2022 Assessment & Plan (03/15/2022 2:49 PM APPLE PICKING SUPERVISOR): Will obtain records [facility] Urgent care, [facility] Urgent care by [facility] and Urgent care on [facility]. Acute tonsillitis due to infectious mononucleosi s 02/03/2022 Nausea and vomiting 02/03/2022 Elevated LFTs 02/03/2022 Asthma 12/16/2021 Marijuana dependence ([facility]/HCC) 12/16/2021 Dental caries 11/30/2020 Assessment & Plan (11/30/2020 11:13 AM CDT): Continue Amoxicillin and steroids and Peridex after meals and before bedtime Have Dental evaluation Will obtain records from the [facility] regarding Tonsillar infections and consider proceeding with Tonsillectomy and Adenoidectomy based on their information Tonsillitis 11/28/2020 Assessment & Plan (11/30/2020 11:13 AM CDT): Continue Amoxicillin and steroids and Peridex after meals and before bedtime Have Dental evaluation Will obtain records from the [facility] regarding Tonsillar infections and consider proceeding with Tonsillectomy and Adenoidectomy based on their information Appendicitis 02/27/2020 Assessment & Plan (03/16/2020 11:51 AM APPLE PICKING SUPERVISOR): Diet as tolerated. Okay to return to work with light duty. No heavy lifting greater than 20 lb for 4 weeks. No submerging incisions for 4 weeks. Please call for any further questions or concerns. Abscess of ear canal, right 06/12/2018 Assessment & Plan (06/20/2018 12:35 PM APPLE PICKING SUPERVISOR): Continue the antibiotic cream to right ear Follow up in 1 week for recheck Assessment & Plan (06/12/2018 2:56 PM APPLE PICKING SUPERVISOR): Avoid water to right ear Apply antibiotic ointment to the right ear canal 6 times daily Ear culture taken today Stop Keflex Start Levaquin, stop if muscle or tendon aches occur and call the office. Perineal pain 05/18/2016 Incomplete emptying of bladder 12/25/2013 Abnormal electrocardiogram 07/21/2009 Encounters Date Type Department Care Team Description 03/19/2024 11:00 AM APPLE PICKING SUPERVISOR Ancillary Procedure [facility] Medical [facility] Imaging at [address] [id number] Acute nasopharyngitis; Acute cough 03/18/2024 7:56 PM APPLE PICKING SUPERVISOR - 03/18/2024 11:59 PM APPLE PICKING SUPERVISOR Hospital Encounter [address] [address] Acute nasopharyngitis Discharge Disposition: Discharge to home or self care 03/18/2024 7:45 PM APPLE PICKING SUPERVISOR Office Visit [facility] Care at [address] [address] Woody Fofana NP Acute nasopharyngitis (Primary Dx); Acute suppurative otitis media of left ear without spontaneous rupture of tympanic membrane, recurrence not specified; Acute cough from Last 3 Months Immunizations Name Administration Dates Next Due DTaP [...] Conjugate 7-Valent 10/26/2000,07/26,03/27/2000 Tdap 10/22/2021,03/26/2020,08/19/2009 Varicella 10/18/2010,07/26/2000 Surgical History Surgery Date Site/Laterality Comments APPENDECTOMY 02/27/2020 Medical History Medical History Date Comments Personal history of other sp ecified conditions History of urinary frequency - (Added by TW Conv) Other specified disorders of bladder Bladder hypertrophy - (Added by TW Conv) Personal history of other sp ecified conditions History of urinary incontine nce - (Added by TW Conv) Urinary incontinence Enuresis - (Added by TW Conv) Personal history of urinary infection History of urinary tract infection - (Added by TW Conv) Personal history of other di seases of urinary system History of chronic cystitis - (Added by TW Conv) 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 - (Added by TW Conv) Spastic bladder IBS (irritable bowel syndrome) GERD (gastroesophageal reflux disease) Obesity Anemia Asthma Social History Tobacco Use Types Packs/Day Years [...] on file Legal Sex Female 10:18 AM APPLE PICKING SUPERVISOR Gender Identity Not on file Sexual Orientation Not on file Occupation Industry Job Start 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 Not on file Not on file Not on file Obstetrics History Para Term AB IAB SAB Ectopic Multiple Livin g Live Births 0 0 0 0 0 0 0 0 0 0 0 Last Filed Vital Signs Vital Sign Reading Time Taken Comments Blood Pressure 138/90 03/18/2024 7:56 PM APPLE PICKING SUPERVISOR Pulse 80 03/18/2024 7:56 PM APPLE PICKING SUPERVISOR Temperature 37.1 C (98.7 F) 03/18/2024 7:56 PM APPLE PICKING SUPERVISOR Respiratory Rate 18 03/18/2024 7:56 PM APPLE PICKING SUPERVISOR Oxygen Saturation 98% 03/18/2024 7:56 PM APPLE PICKING SUPERVISOR Inhaled Oxygen Concentration - - Weight 130.1 kg (286 lb 14.4 oz) 03/18/2024 7:56 PM APPLE PICKING SUPERVISOR Height 182.9 cm (6' 0.01 ) 03/18/2024 7:56 PM CS T Body Mass Index 38.9 03/18/2024 7:56 PM APPLE PICKING SUPERVISOR Plan of Treatment Health Maintenance Due Date Last Done Comments Cervical Cancer Screening 1999 Chlamydia and Gonorrhea (GC/ CT) Screening 1999 Depression Screening 1999 Pneumococcal vaccine <65 (1 of 1 - PPSV23 or PCV20) 07/24/2005 10/26/2000, 07/26/2000, 03/27/2000 Regular Well Visit/Exam 18-64 07/24/2017 Covid-19 Vaccine (3 - 2023-2 5 season) 2023 08/14/2020, 07/24/2020 Influenza Vaccine (#1) 2023 , 01/10/2022, 03/14/2021, Additional history exists DTaP/Tdap/Td Vaccine (9 - Td or Tdap) 10/23/2031 10/22/2021, 03/26/2020, 08/19/2009, Additional history exists Hepatitis B Screening Completed 07/26/2000 , 03/27/2000, 01/26/2000 Varicella Vaccines Completed 10/18/2010, 07/26/2000 HPV Vaccines Completed 11/17/2015, 11/24/2013 Hepatitis C Screening Completed 01/26/2021 Procedures Procedure Name Priority Date/Time Associated Diagnosis Comments XR CHEST PA LATERAL 2 VIEWS Schedule FLORENCE, Read FLORENCE (Appt Today, Awaiting Results) 03/19/2024 10:51 AM APPLE PICKING SUPERVISOR Acute nasopharyngitis Acute cough INFLUENZA A/B, RSV, AND COVID-19 PCR Routine 03/18/2024 7:56 PM APPLE PICKING SUPERVISOR Acute nasopharyngitis HEPATITIS C ANTIBODY Routine 01/26/2021 7:28 AM CDT Encounter for donation of kidney from Last 3 Months or Most Recently Relevant to Health Maintenance Results * XR Chest PA Lateral 2 Views (03/19/2024 10:51 AM APPLE PICKING SUPERVISOR) Anatomical Region Laterality Modality Body, Chest N/A Digital Radiogra phy 03/19/2024 12:5 4 PM APPLE PICKING SUPERVISOR Narrative 03/19/2024 12:55 PM APPLE PICKING SUPERVISOR EXAM DESCRIPTION: XR CHEST PA LATERAL 2 [...] Beatriz Crum M.D. TW T: Report ID: [id number] Reading Location: [id number] Procedure Note Beatriz Crum MD - 03/19/2024 [...] Beatriz Crum M.D. TW T: Report ID: [id number] Reading Location: [id number] Woody Fofana NP IMG XR PROCEDURES Final Result * Influenza A/B, RSV, and COVID-19 PCR Nasopharyngeal (03/18/2024 7:56 PM APPLE PICKING SUPERVISOR) Pathologist [facility] [place] COVID-19 RNA Negative Negative [facility] Influenza A RNA Negative Negative [facility] Influenza B RNA Negative Negative [facility] RSV RNA Negative Negative [facility] Comment: Interpretive data: Testing performed by [facility]. This test is performed using the [employer] Xpert Xpress CoV-2/Flu/RSV plus assay. This is a multiplex, real-time reverse transcriptase PCR assay intended for the qualitative detection of nucleic acid from SARS-CoV-2, influenza A, influenza B, and respiratory syncytial virus. This assay has been cleared by the [place] Food and Drug administration. The performance characteristics have been verified by the [facility]. Results must be considered in the clinical context, and a negative result does not rule out infection. Interpretive Data last revised 2023 Nasopharyngeal 03/18/2024 7: 56 PM APPLE PICKING SUPERVISOR 03/18/2024 9:44 PM APPLE PICKING SUPERVISOR Narrative [facility] - 03/18/2024 10:24 PM APPLE PICKING SUPERVISOR Is the Patient experiencing symptoms consistent with COVID?->Yes Woody Fofana NP LAB MICROBIOLOGY - GENERAL ALISA GARCIA Final Result [facility] [id number] [address] [place] [address] CH * Hepatitis C antibody (01/26/2021 7:28 AM CDT) Pathologist [facility] [place] Hep C Ab Nonreactive Nonreactive [facility] Comment:Antibodies to HCV no t detected. Does NOT exclude the possibility of recent exposure to HCV. Blood 01/26/2021 7:28 AM CDT 01/26/2021 7:43 AM CDT Paul Sanders MD LAB MICROBIOLOGY - GENERAL ALISA GARCIA Edited Result - Final [facility] [place] [address] from Last 3 Months or Most Recently Relevant to Health Maintenance Insurance [employer] [facility] ANTHEM ACCESS CHOICE [facility] BLUE [facility] Advance Directives For more information, please contact: [phone] * Full Code (Latest Code Status on File) Date Activated Date Inactivated Comments 02/27/2020 2:25 AM 02/28/2020 12:24 AM Care Teams Mamma Logist Relationship Specialty Start Date End Date Jessica Zheng MD PCP - General Family Medicine 02/03/22
--- OUTSIDE RECORDS SUMMARY | 2024-05-30 11:45 | XMS_ITS | Clinical Summary ---
Author Organization [facility] Address [address] [place] [id number] Care Team Providers Care Lath Hand Name Role Phone Unavailable Primary Care Provider Unavailabl e Social History Tobacco Use Types Packs/Day Years Used Date Smoking Tobacco: Never Assessed Comments Unknown Sex and Gender Information Value Date Recorded Sex Assigned at Not on file Legal Sex Female 6:25 PM CDT Gender Identity Not on file Sexual Orientation Not on file Plan of Treatment Health Maintenance Due Date Last Done Comments Cervical Cancer Screening Pa p Smear (Age 21 to 29) Every 3 Years 1999 Cervical Cancer Screening 1999 Annual Physical 07/24/2002 HPV Vaccines (1 - 3-dose series) 07/24/2014 Hepatitis C 07/24/2017 DTaP, Tdap and Td Vaccines ( 1 - Tdap) 07/24/2018 Hepatitis B Vaccines (1 of 3 - 19+ 3-dose series) 07/24/2018 COVID-19 Vaccine (2023-2 5 season) 2023 Influenza Adult (#1) 2024 Meningococcal B Vaccine Aged Out No l onger eligible based on patient's age to complete this topic Meningococcal Vaccine Aged Out No hetcor yunier eligible based on patient's age to complete this topic Pneumococcal Vaccine: Pediat rics (0 to 5 Years) and At-Risk Patients (6 to 64 Years) Aged Out No longer eligible b ased on patient's age to complete this topic RSV Immunizations Under 20 Months Aged Out No longer eligible based on patient's age to complete this topic
--- OUTSIDE RECORDS SUMMARY | 2024-05-30 11:45 | XMS_ITS | Patient Health Summary ---
Author Organization [facility] Address [address] [place] [address] Care Team Providers Care Master Carpenter Name Role Phone Ilene Morgan MD Primary Care Provider Note from [facility],non-owned Affiliates and Associated Physician Practices is amultiple site organization consisting of ambulatory clinics and hospital sitesin [place], [place], [place] and [place]. This disclosure is being madepursuant to the Care Everywhere program and may not contain all information available regarding this patient. Last updated 18.[facility] Allergies No known active allergies Medications * Be aware that medications may not be up to date on this document. Alwaysverify current medications with the patient. * traZODone (DESYREL) 50 MG tablet Take 50 mg by mouth 2 times daily * lamoTRIgine (LAMICTAL) 150 MG tablet Take 150 mg by mouth 2 times daily * lithium carbonate (LITHOTABS) 300 MG tablet Take 300 mg by mouth 3 times daily * ARIPiprazole (ABILIFY) 20 MG tablet Take 20 mg by mouth once daily Social History Tobacco Use Types Packs/Day Years Used Date Smoking Tobacco: Never Smokeless Tobacco: Never Sex and Gender Information Value Date Recorded Sex Assigned at Not on file Gender Identity Not on file Sexual Orientation Not on file Last Filed Vital Signs Vital Sign Reading Time Taken Comments Blood Pressure 122/80 06/21/2017 4:10 PM SPLITTER MACHINE Pulse 78 06/21/2017 4:09 PM SPLITTER MACHINE Temperature 36.8 C (98.3 F) 06/21/2017 4:09 PM SPLITTER MACHINE Respiratory Rate 16 06/21/2017 4:09 PM SPLITTER MACHINE Oxygen Saturation 99% 06/21/2017 4:09 PM SPLITTER MACHINE Inhaled Oxygen Concentration - - Weight 112.9 kg (249 lb) 06/21/2017 4:09 PM SPLITTER MACHINE Height 175.3 cm (5' 9 ) 06/21/2017 4:09 PM SPLITTER MACHINE Body Mass Index 36.77 06/21/2017 4:09 PM SPLITTER MACHINE Procedures * PATHOLOGY TISSUE EXAM (STL)(Performed 10/11/2023) Performed for Tonsillitis Results * PATHOLOGY TISSUE EXAM (STL) (10/11/2023 10:58 AM CDT) Case Report Surgical Pathology Report Case: [id number] Authorizing Provider: Robert Nolasco MD Collected: 10/11/2023 10:58 AM Ordering Location: [facility] Received: 10/11/2023 01:17 PM Pathologist: Sara Graff MD Specimen: Tonsil(s), Bilateral 10/12/2023 4:32 PM T [facility] Final Diagnosis Right tonsil, tonsillectomy: -- Reactive follicular hyperplasia and acute inflammation Left tonsil, tonsillectomy: -- Reactive follicular hyperplasia and acute inflammation 10/12/2023 4:32 PM T [facility] Gross Description Received in formalin labeled with patient's name and bilateral tonsils, pin on right are two pink-rojas lobular tonsils, one with a safety pin designating right. The right tonsil measures 2.5 x 1.5 x 1 cm and the resection margin is inked blue. The left tonsil measures 2 x 1 x 1 cm and the resection margin is inked orange. The tonsils are sectioned to show pink-rojas grossly unremarkable cut surfaces. Braided Rug Maker sections are submitted as follows: A1-right tonsil A2-left tonsil 10/12/2023 4:32 PM CDT [facility] Microscopic Description Microscopic evaluation supports the diagnosis. 10/12/2023 4:32 PM T [facility] Disclaimer All histochemical and/or immunohistochemical results are interpreted with controls that demonstrate appropriate staining reactions before reporting results. Note on use of immunocytochemistry reagents: This test was developed and its performance characteristic determined by [facility], Department of Laboratory Medicine. It has not been cleared or approved by the U.S. Food and Drug Administration (FDA). The FDA has determined that such clearance or approval is not necessary. The test is used for clinical purpose. It should not be regarded as investigational or for research. This laboratory is certified to perform high complexity testing. The performance characteristics of the IHC/ANJALI assays have been validated on formalin-fixed paraffin embedded tissues only. The assays have not been validated on decalcified tissues. Results should be interpreted with caution. 10/12/2023 4:32 PM CDT [facility] Embedded Images 10/12/2023 4:32 PM CDT [facility] Pathology/Cytolo gy SPECIMEN FROM TONSIL / Unknown 10/11/2023 10:58 AM CDT 10/11/2023 1:17 PM CDT Robert Nolasco MD LAB - PATHOLOGY/CYTO LOGY ORDERABLES Performing Organization Address City/State/[facility] Co de Phone Number [facility] [address] [place] [address] Care Teams Master Carpenter Relationship Specialty Start Date End Date Ilene Morgan MD PCP - General Pediatrics 09/13/16
--- NOTE | 2024-05-30 12:12 | ED_ITS ---
HPI - URI/Sore Throat General Chief Complaint: Upper Respiratory Infection Stated Complaint: flu like symptoms Time Seen by Provider: 05/30/24 12:12 Source: patient Mode of arrival: ambulatory Limitations: no limitations History of Present Illness HPI Narrative: 23-year-old female presents with complaint of cough and congestion. Patient states she has had symptoms for approximately 2 days. Afebrile. Reports that she gets a lot of upper respiratory infections because of where she works. Patient states that she knows that it is viral but needs work note. No chest pain or shortness breath. All systems reviewed and negative except as noted above. Related Data Home Medications ?Medication ?Instructions ?Recorded ?Confirmed ?Last Taken ?Type etonogestrel 68 mg subdermal 1 implant subdermal ONCE 12/18/20 05/30/24 Unknown History implant (Nexplanon) etonogestrel 68 mg subdermal 1 implant subdermal ONCE 01/23/23 12/07/23 Unknown History implant (Nexplanon) Allergies Allergy/AdvReac Type Severity Reaction Status Date / Time cranberry Allergy Swelling Verified 05/30/24 11:53 Review of Systems Review of Systems: CONSTITUTIONAL: Denies fever, chills, or sweats. EYES: Denies visual changes, redness, or discharge. ENT: Reports rhinorrhea, congestion. Denies sore throat, or otalgia. CARDIOVASCULAR: Denies chest pain, palpitations, or edema. RESPIRATORY: reports cough . Denies dyspnea. GASTROINTESTINAL: Denies abdominal pain, nausea, vomiting, or diarrhea. GENITOURINARY: Denies dysuria or hematuria. SKIN: Denies rash or itching. MUSCULOSKELETAL: Denies back pain, joint pain, or myalgia. NEUROLOGIC: Denies headache, numbness, or weakness. PSYCHIATRIC: Denies anxiety or depression. All other systems reviewed are negative, except as documented in HPI. [facility] Past Medical History Medical History ADD (attention deficit disorder) Anxiety Asthma Bipolar disorder Depression Migraines Previous known suicide attempt Spastic bladder UTI (urinary tract infection) Surgical History Surgical History History of tonsillectomy 10/14 Hx of appendectomy No history of previous surgery Family History Family History Unknown Adopted Social History Social History Smoking status: Never smoker Tobacco type: e-cigarettes/vaping Second hand tobacco smoke exposure: No Alcohol intake: current Substance use: never Substance use type: does not use Living arrangements: with family Occupation/Education: student Gender identity (if verbalized by the patient): Female Exam Narrative: GENERAL: This is a well-nourished, well-developed patient, in no apparent distress. HEAD: normocephalic, atraumatic. EYES: PERRL. Sclera clear/white. Vision is grossly intact. EARS: External ears normal, auditory canals clear and without drainage, TMs normal without perforation. Hearing grossly intact. NOSE: External nose normal with mild congestion, clear nasal drainage THROAT: Mucous membranes moist, posterior pharynx clear. NECK: Neck supple, non-tender without lymphadenopathy, masses or thyromegaly. CARDIOVASCULAR: Regular rate and rhythm without murmurs, gallops, or rubs. RESPIRATORY: Clear to auscultation. Breath sounds equal bilaterally. No wheezes, rales, or rhonchi. SKIN: warm, Dry, intact with no suspicious lesions or rash, good texture and turgor. NEURO: awake, alert, and oriented to person, place and time. There were no obvious focal neurologic abnormalities. EXTREMITIES: No joint tenderness, effusion, or edema noted. Course Course Level of Care: Express Care Visit Vital Signs Vital signs: Vital Signs Temperature 36.7 C 05/30/24 11:10 Pulse Rate 80 05/30/24 11:10 Respiratory Rate 18 05/30/24 11:10 Blood Pressure 157/79 H 05/30/24 11:10 Pulse Oximetry 100 05/30/24 11:10 Oxygen Delivery Room Air 05/30/24 11:10 Temperature 36.7 C 05/30/24 11:10 Pulse Rate 80 05/30/24 11:10 Respiratory Rate 18 05/30/24 11:10 Blood Pressure 157/79 H 05/30/24 11:10 Pulse Oximetry 100 05/30/24 11:10 Oxygen Delivery Room Air 05/30/24 11:10 reviewed MDM - URI/Sore Throat MDM Narrative Medical decision making narrative: negative COVID and influenza. Patient is well-appearing, nontoxic. Lungs clear to auscultation. Recommend she take txoi-gdy-kulqeee medications to treat viral symptoms. Please be advised this is a medical document. It is intended for evbc-lt-uunt communication. It is written in medical language and may contain unfamiliar abbreviations or verbiage. Medical documents are intended to carry relevant information, facts as evident, and the clinical opinion of the practitioner at the time of the encounter. This report may have been done utilizing a voice recognition system. Attempts have been made to correct errors. However, there may be uncorrected grammatical, spelling, and recognition errors present. The file time of this note does not necessarily represent the time of service. Lab Data Labs: Lab Results 05/30/24 Range/Units 12:18 POC Influenza A Ag Negative (Negative) POC Influenza B Ag Negative (Negative) POC SARS CoV-2 Ag Negative (Negative) Discharge Plan Discharge Clinical Impression: Viral upper respiratory tract infection with cough Patient Disposition: Home, Self-Care Condition: Stable Instructions: Upper Respiratory Infection (ED) Additional Instructions: your COVID and influenza test was negative today. Your symptoms are viral and may last 10-14 days. Take an ssfl-nlw-isdhadc medication to treat her symptoms such as DayQuil NyQuil cold and flu. Drink plenty of water and rest. Follow-up with your primary care physician if symptoms are not improving. Patient Language: Tanzanian Prescriptions: No Action Nexplanon 68 mg Implant 1 implant SUBDERMAL ONCE Nexplanon 68 mg Implant 1 implant SUBDERMAL ONCE Rx Instructions: as a single dose Follow-up/Referrals: PHYSICIAN NOT ON STAFF,NONSTAFF [Primary Care Provider] - Stand Alone Forms: Work/School Release IP Time of Disposition: 12:16
[2024-05-30 12:20] LABS: EDCOVIDSCREEN Negative (Negative); EDINFLUASCREEN Negative (Negative); EDINFLUBSCREEN Negative (Negative)
== END 2024-05-30 12:25 | disposition home or self-care (01) ==
PROVIDERS: Emergency Provider Nurse Practitioner Family
DX: J06.9 Acute upper respiratory infection, unspecified (principal); R05.9 Cough, unspecified; Z20.822 Contact with and (suspected) exposure to COVID-19; F17.290 Nicotine dependence, other tobacco product, uncomplicated; J45.909 Unspecified asthma, uncomplicated
CPT/HCPCS: 87426; 87804; 99212; G0463

== ENCOUNTER 2024-08-11 15:05 | Emergency (ER) | payer OTHER, SELFPAY ==
[2024-08-11 15:15] VITALS: BP 152/86; PULSE 104; RESP 20; TEMP 36.4; O2SAT 20
--- NOTE | 2024-08-11 15:23 | ED.GENADULT ---
HPI - General Adult General Chief complaint: Extremity Problem,Nontraumatic Stated complaint: Leg Pain Time Seen by Provider: 08/11/24 15:23 Source: patient, RN notes reviewed and old records reviewed Mode of arrival: ambulatory Limitations: no limitations History of Present Illness HPI narrative: 24 year old female who presents to [facility] with complaints of exacerbation of her chronic leg and knee pain for the past 2 days. Patient reports that she works at [employer] and is on her feet all of her shift and lately pain has been really bad especially after her shift. Patient reports that she has had physical therapy in the past, has been taking Ibuprofen ad Tylenol without much improvement.Patient reports no tingling or numbness to her legs or feet, describes pain as throbbing., reports no injury.. MD complaint: exacerbation of chronic leg and knee pain Onset (ago): day(s) (2) Location: left, right and lower extremity Severity scale (1-10): 8 Quality: other (throbbing) Pain Consistency: constant Exacerbating factors: movement and other (ambulation) Treatments prior to arrival: NSAID and other (Tylenol) Related Data Home Medications ?Medication ?Instructions ?Recorded ?Confirmed ?Last Taken ?Type etonogestrel 68 mg subdermal 1 implant subdermal ONCE 12/18/20 05/30/24 Unknown History implant (Nexplanon) Allergies Allergy/AdvReac Type Severity Reaction Status Date / Time cranberry Allergy Swelling Verified 08/11/24 15:15 Review of Systems Review of Systems: CONSTITUTIONAL: Denies fever, chills, or sweats. EYES: Denies visual changes, redness, or discharge. ENT: Denies rhinorrhea, congestion, sore throat, or otalgia. CARDIOVASCULAR: Denies chest pain, palpitations, or edema. RESPIRATORY: Denies cough or dyspnea. GASTROINTESTINAL: Denies abdominal pain, nausea, vomiting, or diarrhea. GENITOURINARY: Denies dysuria or hematuria. SKIN: Denies rash or itching. MUSCULOSKELETAL: Denies back pain,reports leg and knee pain constant with increase past 2 days., or myalgia. NEUROLOGIC: Denies headache, numbness, or weakness. PSYCHIATRIC:positive history of anxiety or depression. All systems reviewed & are unremarkable except as noted in HPI and below PMFSH Past Medical History Medical History UTI (urinary tract infection) ADD (attention deficit disorder) Previous known suicide attempt Anxiety Depression Bipolar disorder Migraines Spastic bladder Asthma Surgical History Surgical History No history of previous surgery History of tonsillectomy 10/14 Hx of appendectomy Family History Family History Unknown Adopted Social History Social History Smoking status: Current every day smoker Tobacco type: e-cigarettes/vaping Second hand tobacco smoke exposure: No Alcohol intake: current Substance use: current Substance use type: marijuana Living arrangements: with family Occupation/Education: student Gender identity (if verbalized by the patient): Female Comments At time of signature, agree with nursing past medical, surgical, social and family history. There is no relevant family history pertinent to the presenting complaint Exam Narrative: GENERAL: Well-appearing, well-nourished, obese, and in no acute distress. HEAD: Normocephalic, atraumatic. EYES: PERRLA and EOMI. ENT: Nares clear, no rhinorrhea or epistaxis. Mucous membranes moist.TM's normal throat pink tonsils absent NECK: Supple.no lymphadenopathy CHEST: Clear to auscultation. No respiratory distress. no cough noted HEART: Regular rate and rhythm. No murmur heard. Normal peripheral pulses. ABDOMEN: Soft, nontender, nondistended, normal active bowel sounds.s EXTREMITIES: Normal range of motion. generalized edema of lower extremities non pitting with pain to legs and knees verbalize, report exacerbation of chronic problem for which she has had PT, taking Tylenol and Ibuprofen without much relief in her discomfort. aggravated with activity, Patiet denies any tingling or numbness to legs reports throbbing type of pain especially to knees. Patient reports has MD appointment in 2 weeks. SKIN: Warm, dry, no rash. NEURO: No focal deficits. Alert and oriented x3. Course Course Emergency Course: Patient is aware of diagnosis, understands and agrees to treatment plan.? Anticipatory guidance given.? Patient agrees to follow-up as directed and is aware of reasons to seek care at the emergency department. Portions of this record may have been created with voice recognition software Level of Care: Express Care Visit Vital Signs Vital signs: Vital Signs Temperature 36.4 C 08/11/24 15:15 Pulse Rate 104 H 08/11/24 15:15 Respiratory Rate 08/11/24 15:15 Blood Pressure 152/86 H 08/11/24 15:15 Pulse Oximetry 20 L 08/11/24 15:15 Oxygen Delivery Room Air 08/11/24 15:15 Temperature 36.4 C 08/11/24 15:15 Pulse Rate 104 H 08/11/24 15:15 Respiratory Rate 08/11/24 15:15 Blood Pressure 152/86 H 08/11/24 15:15 Pulse Oximetry 20 L 08/11/24 15:15 Oxygen Delivery Room Air 08/11/24 15:15 Reviewed Medical Decision Making MDM Narrative Medical decision making narrative: Exam findings and imaging show no acute concerns or changes; patient is non-toxic appearing and is in no distress.? Patient is appropriate for outpatient treatment and follow-up Differential Diagnosis Differential Diagnosis: exacerbation of chronic leg and knee pain, fibromyalgia, lymphedema, obesity, arthritis Medical Records Medical records reviewed: Yes I reviewed the external patient's medical records. Vital Signs Vital Signs: Vital Signs Temperature 36.4 C 08/11/24 15:15 Pulse Rate 104 H 08/11/24 15:15 Respiratory Rate 08/11/24 15:15 Blood Pressure 152/86 H 08/11/24 15:15 Pulse Oximetry 20 L 08/11/24 15:15 Oxygen Delivery Room Air 08/11/24 15:15 Temperature 36.4 C 08/11/24 15:15 Pulse Rate 104 H 08/11/24 15:15 Respiratory Rate 08/11/24 15:15 Blood Pressure 152/86 H 08/11/24 15:15 Pulse Oximetry 20 L 08/11/24 15:15 Oxygen Delivery Room Air 08/11/24 15:15 reviewed Critical Care Time Critical Care Time Critical Care Time: No Discharge Plan Discharge Clinical Impression: Arthralgia of both lower legs Pain in both knees Qualifiers: Chronicity: chronic Qualified Code(s): M25.561 - Pain in right knee; M25.562 - Pain in left knee; G89.29 - Other chronic pain Patient Disposition: Home Condition: Stable Instructions: Antibiotic Form, Leg Pain (ED) Additional Instructions: Tylenol for lesser pain Ibuprofen regularly for the next 2-3 days for the inflammation Follow-up with orthopedic surgeon Follow-up with PCP if further problems or concerns Ice to the area 20-30 minutes 4-6 times a day Elevate above heart Last Phan topical ointment to knees Gabapentin daily at bedtime If your symptoms persist, change or worsen significantly before you can contact your personal physician then please, without delay, go to the emergency department for further evaluation. Follow-up with PCP in 7-10 days or sooner if needed Follow up with PCP soon in regards to your blood pressure which is elevated above threshold for referral. Blood pressure above 120/80 may indicate pre-hypertension. 152/86 Patient Language: Botswanan Prescriptions: New gabapentin 300 mg capsule 300 mg PO HS Qty: 20 0RF No Action Nexplanon 68 mg Implant 1 implant SUBDERMAL ONCE Follow-up/Referrals: PHYSICIAN NOT ON STAFF,NONSTAFF [Primary Care Provider] - Time of Disposition: 15:42 Quality [place] Coma Scale Eyes: Open Verbal: Oriented and Alert Motor: Follows Commands Elin Coma Total Score: 15
--- OUTSIDE RECORDS SUMMARY | 2024-08-11 17:06 | XMS_ITS | Clinical Summary ---
Author Organization [facility] Address [address] [place] [address] Care Team Providers Care Administrative Support Specialist Name Role Phone Unavailable Primary Care Provider [...] 07/24/2018 COVID-19 Vaccine (2023-2 5 season) 2023 Meningococcal B Vaccine Aged Out No l onger eligible based on patient's age to complete this topic Meningococcal Vaccine Aged Out No hector yunier eligible based on patient's age to complete this topic Pneumococcal Vaccine: Pediat rics (0 to 5 Years) and At-Risk Patients (6 to 49 Years) Aged Out No longer eligible b ased on patient's age to complete this topic RSV Immunizations Under 20 Months Aged Out No longer eligible based on patient's age to complete this topic
--- OUTSIDE RECORDS SUMMARY | 2024-08-11 17:06 | XMS_ITS | Clinical Summary ---
Author Organization [facility] [employer] Address [address] [place] [address] Care Team Providers Care Television News Anchor Name Role Phone Ilene Morgan MD Primary Care Provider [phone] Source Comments [facility] [employer],non-owned Affiliates and Associated Physician Practices is amultiple site organization consisting of ambulatory clinics and hospital sitesin [place], [place], [place] and [place]. This disclosure is being madepursuant to the Care Everywhere program and may not contain all information available regarding this patient. Last updated 18.[facility] [employer] Allergies No known active allergies Medications * Be aware that medications may not be up to date on this document. Alwaysverify current medications with the patient. traZODone (DESYREL) 50 MG tablet Take 50 [...] Date Smoking Tobacco: Never Smokeless Tobacco: Never Comments No Sex and Gender Information Value Date Recorded Sex Assigned at Not on file Legal Sex Female 2:21 PM CDT Gender Identity Not on file Sexual Orientation Not on file Last Filed Vital Signs Vital Sign Reading Time Taken Comments Blood Pressure 122/80 06/21/2017 4:10 PM RELIEF MAP MODELER Pulse 78 06/21/2017 4:09 PM RELIEF MAP MODELER Temperature 36.8 C (98.3 F) 06/21/2017 4:09 PM RELIEF MAP MODELER Respiratory Rate 16 06/21/2017 4:09 PM RELIEF MAP MODELER Oxygen Saturation 99% 06/21/2017 4:09 PM RELIEF MAP MODELER Inhaled Oxygen Concentration - - Weight 112.9 kg (249 lb) 06/21/2017 4:09 PM RELIEF MAP MODELER Height 175.3 cm (5' 9 ) 06/21/2017 4:09 PM RELIEF MAP MODELER Body Mass Index 36.77 06/21/2017 4:09 PM RELIEF MAP MODELER Plan of Treatment Health Maintenance Due Date Last Done Comments PAP SMEAR 1999 HIV SCREENING 07/24/2014 HPV VACCINE (1 - 3-dose series) 07/24/2014 CHLAMYDIA/GONORRHEA SCREENING 2015 HEPATITIS C SCREENING 07/20/2017 DTAP/TDAP/TD VACCINES (1 - Tdap) 07/24/2018 HEPATITIS B VACCINE (1 of 3 - 19+ 3-dose series) 07/24/2018 COVID-19 VACCINE ( - season) 2023 DEPRESSION SCREENING 04/23/2024 INFLUENZA VACCINE (Season Ended) 2024 02/05/2023, 01/10/2022, 03/14/2021, Additional history exists ZOSTER VACCINE (1 of 2) 07/24/2049 HIB VACCINE Aged Out No longer eligi ble based on patient's age to complete this topic MENINGOCOCCAL (Group B) VACCINE SHARED DECISION-MAKING Aged Out No longer eligible based on patient's age to complete this topic MENINGOCOCCAL GROUPS A/C/Y/W VACCINE Aged Out No longer eligible based on patient's age to complete this topic PNEUMOCOCCAL VACCINE Aged Out No long er eligible based on patient's age to complete this topic Insurance [employer] [facility] Address: [address] [place] [id number] Care Teams Television News Anchor Relationship Specialty Start Date End Date Ilene Morgan MD PCP - General Pediatrics 09/13/16
--- OUTSIDE RECORDS SUMMARY | 2024-08-11 17:06 | XMS_ITS | Clinical Summary ---
Author Organization [facility] Address [address] [place] [address] Care Team Providers Care Blender/Braze Applicator Name Role Phone Jessica Zheng MD Primary [...] Active Additional Information Patient not taking.Reported on 06/17/2024 metoclopramide (REGLAN) 10 mg tablet Take 1 tablet (10 mg total) by mouth every 6 (six) hours as needed (Nausea, vomiting) 20 tablet 09/16/19 21 Active Additional Information Patient not taking.Reported on 06/17/2024 dicyclomine (BENTYL) 20 mg tablet Take 1 tablet (20 mg total) by mouth every 8 (eight) hours as needed (Crampy abdominal pain) 10 tablet 09/16/19 21 Active Additional Information Patient not taking.Reported on 06/17/2024 acetaminophen (TYLENOL) 500 mg tablet Take 2 tablets (1,000 mg total) by mouth every 8 (eight) hours as needed for pain for up to 20 doses 40 tablet 09/16/19 Active Additional Information Patient not taking.Reported on 06/17/2024 famotidine (PEPCID) 40 mg tablet Take 1 tablet (40 mg total) by mouth nightly for 14 days 14 tablet 09/16/19 Active Additional Information Patient not taking.Reported on 03/15/2022 naproxen (NAPROSYN) 500 mg tabletIndications: Pain Take 1 tablet (500 mg total) by mouth 2 (two) times a day with meals 20 tablet 10/06/19 Active Additional Information Patient not taking.Reported on 06/17/2024 cyclobenzaprine (FLEXERIL) 5 mg tabletIndications: Muscle Spasm Take 1 tablet (5 mg total) by mouth 2 (two) times a day as needed for muscle spasms 6 tablet 10/06/19 Active Additional Information Patient not taking.Reported on 06/17/2024 chlorhexidine (PERIDEX) 0.12 % solution Apply 15 mL to the mouth or throat 2 (two) times a day Twice daily gargle for 2 minutes, swish around in mouth, then spit out. Collaborating physician Rakesh Kong MD 120 mL 1 11/29/19 Active Additional Information Patient not taking.Reported on 06/17/2024 ondansetron ODT (ZOFRAN-ODT) 4 mg disintegrating tablet Take 1 tablet (4 mg total) by mouth every 8 (eight) hours as needed for nausea Collaborating physician Rakesh Kong MD 20 tablet 02/04/20 Active Additional Information Patient not taking.Reported on 06/17/2024 promethazine-DM (PROMETHAZINE-DM) 1.25-3 mg/mL syrup Take 5 mL by mouth 4 (four) times a day as needed for cough Collaborating physician Rakesh Kong MD 118 mL 02/04/20 Active Additional Information Patient not taking.Reported on 06/17/2024 SUMAtriptan (IMITREX) 50 mg tablet PLEASE SEE ATTACHED FOR DETAILED DIRECTIONS Active Active Problems Problem Noted Date Diagnosed Date Chronic tonsillitis 03/15/2022 Assessment & Plan (03/15/2022 2:49 PM MAP EDITOR): Will obtain records [facility], [facility] care by [place] and Urgent care on [place], [facility]. Acute tonsillitis due to infectious mononucleosi s 02/03/2022 Nausea and vomiting 02/03/2022 Elevated LFTs 02/03/2022 Asthma 12/16/2021 Marijuana dependence 12/16/2021 Dental caries 11/30/2020 Assessment & Plan (11/30/2020 11:13 AM CDT): Continue Amoxicillin and steroids and Peridex after meals and before bedtime Have Dental evaluation Will obtain records from the [facility] regarding Tonsillar infections and consider proceeding with Tonsillectomy and Adenoidectomy based on their information Tonsillitis 11/28/2020 Assessment & Plan (11/30/2020 11:13 AM CDT): Continue Amoxicillin and steroids and Peridex after meals and before bedtime Have Dental evaluation Will obtain records from the [facility] regarding Tonsillar infections and consider proceeding with Tonsillectomy and Adenoidectomy based on their information Appendicitis 02/27/2020 Assessment & Plan (03/16/2020 11:51 AM MAP EDITOR): Diet as tolerated. Okay to return to work with light duty. No heavy lifting greater than 20 lb for 4 weeks. No submerging incisions for 4 weeks. Please call for any further questions or concerns. Abscess of ear canal, right 06/12/2018 Assessment & Plan (06/20/2018 12:35 PM MAP EDITOR): Continue the antibiotic cream to right ear Follow up in 1 week for recheck Assessment & Plan (06/12/2018 2:56 PM MAP EDITOR): Avoid water to right ear Apply antibiotic ointment to the right ear canal 6 times daily Ear culture taken today Stop Keflex Start Levaquin, stop if muscle or tendon aches occur and call the office. Perineal pain 05/18/2016 Incomplete emptying of bladder 12/25/2013 Abnormal electrocardiogram 07/21/2009 Encounters Date Type Department Care Team Description 06/17/2024 6:00 PM MAP EDITOR Office Visit [facility] at [address] [phone] Woody Fofana NP Localized infection of skin (Primary Dx) 06/14/2024 11:15 AM MAP EDITOR Office Visit [facility] at [address] [phone] Cathleen Guzman PA Laceration of right index finger without foreign body without damage to nail, initial encounter (Primary Dx) from Last 3 Months Immunizations Immunization Administration Dates Next Due DTaP 11/14/2004, 1,01/26/2000,12/05,1999 HPV, Unspecified 11/17/2015,11/24/2013 Hep A, Pediatric 11/17/2015,11/24/2013 Hep B / HiB 01/26/2000 Hep B, Adolescent or Pediatric 07/26/2000,1999 HiB 10/26/2000, 1,1999,12/05,1999,1999 IPV 11/14/2004, 1,1999,09/26 Influenza LAIV (Nasal) 01/23/2014 Influenza, Quadrivalent, Spl it, Preservative Free, Intramuscular 01/10/2022 Influenza, Unspecified 02/27/2020,02/27/2020,09/2019 MMR 11/14/2004,07/26/2000 Meningococcal ACWY, Unspecified 11/17/2015,10/18 Meningococcal B, OMV (Bexsero) 03/26/2020,2019 Pneumococcal Conjugate 7-Valent 10/26/2000,07/26,03/27/2000 Tdap 06/14/2024, 2,03/26/2020,08/19 Varicella 10/18/2010,07/26/2000 Surgical History Surgery Date Site/Laterality [...] on file Legal Sex Female 10:18 AM MAP EDITOR Gender Identity Not on file Sexual Orientation [...] Sign Reading Time Taken Comments Blood Pressure 128/68 06/17/2024 6:01 PM MAP EDITOR Pulse 78 06/17/2024 6:01 PM MAP EDITOR Temperature 37 C (98.6 F) 06/17/2024 6:01 PM MAP EDITOR Respiratory Rate 24 06/17/2024 6:01 PM MAP EDITOR Oxygen Saturation 97% 06/17/2024 6:01 PM MAP EDITOR Inhaled Oxygen Concentration - - Weight 134.7 kg (297 lb) 06/17/2024 6:01 PM MAP EDITOR Height 182.9 cm (6') 06/14/2024 10:47 AM MAP EDITOR Body Mass Index 40.28 06/14/2024 10:47 AM MAP EDITOR Plan of Treatment Health Maintenance Due Date Last Done Comments Cervical Cancer Screening 1999 Depression Screening 1999 Pneumococcal vaccine <65 (1 of 1 - PPSV23) 07/24/2005 10/26/2000, 07/26/2000, 03/27/2000 Regular Well Visit/Exam 18-64 07/24/2017 Covid-19 Vaccine (2023-2 5 season) 2023 08/14/2020, 07/24/2020 Influenza Vaccine (Season Ended) 2024 02/05/2023, 01/10/2022, 03/14/2021, Additional history exists DTaP/Tdap/Td Vaccine (10 - T d or Tdap) 06/14/2034 06/14/2024, 10/22/2021, 03/26/2020, Additional history exists Hepatitis B Screening Completed 07/26/2000 , 03/27/2000, 01/26/2000 Varicella Vaccines Completed 10/18/2010, 07/26/2000 HPV Vaccines Completed 11/17/2015, 11/24/2013 Hepatitis C Screening Completed 01/26/2021 Procedures Procedure Name Priority Date/Time Associated Diagnosis Comments [place] SIMPLE REPAIR SCALP/NECK/AX/GENIT /TRUNK 2.5CM/< Routine 06/14/2024 11:08 AM MAP EDITOR Laceration of right index finger without foreign body without damage to nail, initial encounter HEPATITIS C ANTIBODY Routine 01/26/2021 7:28 AM CDT Encounter for donation of kidney from Last 3 Months or Most Recently Relevant to Health Maintenance Results * [place] SIMPLE REPAIR SCALP/NECK/AX/GENIT/TRUNK 2.5CM/< (06/14/2024 11:08 AM MAP EDITOR) Narrative Cathleen Guzman PA - 06/14/2024 11:08 AM MAP EDITOR Cathleen Guzman PA 06/14/2024 11:29 AM Laceration Repair Date/Time: 06/14/2024 11:08 AM Performed by: Cathleen Guzman PA Authorized by: Cathleen Guzman PA Consent: Consent obtained: Verbal Consent given by: Patient Risks, benefits, and alternatives were discussed: yes Anesthesia: Anesthesia method: None Laceration details: Location: Finger Finger location: R index finger Length (cm): 1.5 Treatment: Area cleansed with: Chlorhexidine and saline Amount of cleaning: Standard Skin repair: Repair method: Tissue adhesive Approximation: Approximation: Close Repair type: Repair type: Simple Post-procedure details: Dressing: Non-adherent dressing Procedure completion: Tolerated well, no immediate complications us Cathleen SOOD IN CLINIC/BEDSIDE ORDERA BLES Final Result * Hepatitis C antibody (01/26/2021 7:28 AM CDT) Hep C Ab Nonreactive Nonreactive SANDY HORTON Comment:Antibodies to HCV no t detected. Does NOT exclude the possibility of recent exposure to HCV. Blood 01/26/2021 7:28 AM CDT 01/26/2021 7:43 AM CDT us Paul Sanders MD LAB MICROBIOLOGY - GENERAL ALISA GARCIA Edited Result - Final SANDY HORTON [facility] Department [place] [address] from Last 3 Months or Most Recently Relevant to Health Maintenance Insurance [facility] Advance Directives For more information, please contact: [phone] * Full Code (Latest Code Status on File) Date Activated Date Inactivated Comments 02/27/2020 2:25 AM 02/28/2020 12:24 AM Care Teams Blender/Braze Applicator Relationship Specialty Start Date End Date Jessica Zheng MD PCP - General Family Medicine 02/03/22
--- OUTSIDE RECORDS SUMMARY | 2024-08-11 17:06 | XMS_ITS | Encounter Summary ---
Author Organization [facility] Address [address] [place] [address] Phone Care Team Providers Care Service Observer Name Role Phone Phoenix Santos MD Unavailable [phone] David Kenney APRN, INTERIOR SPECIALIST Primary Care Pr ovider Encounter Details Date Type Department Care Team (Late st Contact Info) Description 06/27/2024 Results Follow-Up [facility] - Obstetrics & Gynecology [facility] [address] [place] [phone] Alyssa [place] APRN, INTERIOR SPECIALIST [address] [place] [address] Social History Tobacco Use Types Packs/Day Years Used Date Smoking Tobacco: Never Smokeless Tobacco: Never Alcohol Use Standard Drinks/Week Comments Yes 0 (1 standard drink = 0.6 oz pur e alcohol) socially [facility] Utilities Answer Date Recorded In the past 12 months has [employer], gas, oil, or water company threatened to [...] often do you attend chur ch or advent services? Never 05/23/2024 Do you belong to any clubs o r organizations such as sabianist groups, unions, fraternal or athletic groups, or [...] Total Score - Questions 1-9 0 04/25 [facility] [place] of Occupat ional Health - Occupational Stress [...] any time in the past 12 m ont, were you homeless or living in a senior living (including now)? No 05/23/2024 Sexually Active Control Partners Comments Yes Comments No Sex and Gender Information Value Date Recorded Sex Assigned at Not on file Legal Sex Female 9:35 PM CDT Gender Identity Not on file Sexual Orientation Not on file documented as of this encounter Plan of Treatment Not on file documented as of this encounter Visit Diagnoses Not on filedocumented in this encounter Additional Health Concerns Assessment Noted Time PHQ-9 Depression Total Score: 0 05/23/19 25 4:02 PM CRANE CREW SUPERVISOR documented as of this encounter Care Teams Service Observer Relationship Specialty Start Date End Date David Kenney APRN, INTERIOR SPECIALIST [address] [address] PCP - General Advanced Practice Nurse 07/23/23 Phoenix Santos MD [address] [place] [address] Consulting Physician Gastroenterology 01/12/22 documented as of this encounter
--- OUTSIDE RECORDS SUMMARY | 2024-08-11 17:06 | XMS_ITS | Referral Summary ---
Author Organization [facility] B Address [address] [place] [address] Care Team Providers Care Scouring Train Operator Chief Name Role Phone Jessica Zheng MD Primary Care Provider Encounters Date Type Department Care Team Description 06/17/2024 6:00 PM PAINT BRUSH MAKER Office Visit [facility] Medical [facility] at [address] [address] Woody Fofana NP Localized infection of skin (Primary Dx) 06/14/2024 11:15 AM PAINT BRUSH MAKER Office Visit [facility] at [address] [address] Cathleen Guzman PA Laceration of right index finger without foreign body without damage to nail, initial encounter (Primary Dx) from Last 3 Months Allergies Active Allergy [...] physician Rakesh Kong MD 20 tablet 02/04/20 22 Active Additional Information Patient not [...] 03/15/2022 Assessment & Plan (03/15/2022 2:49 PM PAINT BRUSH MAKER): Will obtain records [facility], [facility] by [facility] and Urgent care on [place], [facility]. Acute tonsillitis due to infectious mononucleosi s 02/03/2022 Nausea and vomiting 02/03/2022 Elevated LFTs 02/03/2022 Asthma 12/16/2021 Marijuana dependence 12/16/2021 Dental caries 11/30/2020 Assessment & Plan (11/30/2020 11:13 AM CDT): Continue Amoxicillin and steroids and Peridex after meals and before bedtime Have Dental evaluation Will obtain records from the [facility] regarding Tonsillar infections and consider proceeding with Tonsillectomy and Adenoidectomy based on their information Tonsillitis 11/28/2020 Assessment & Plan (11/30/2020 11:13 AM CDT): Continue Amoxicillin and steroids and Peridex after meals and before bedtime Have Dental evaluation Will obtain records from the [facility] regarding Tonsillar infections and consider proceeding with Tonsillectomy and Adenoidectomy based on their information Appendicitis 02/27/2020 Assessment & Plan (03/16/2020 11:51 AM PAINT BRUSH MAKER): Diet as tolerated. Okay to return to work with light duty. No heavy lifting greater than 20 lb for 4 weeks. No submerging incisions for 4 weeks. Please call for any further questions or concerns. Abscess of ear canal, right 06/12/2018 Assessment & Plan (06/20/2018 12:35 PM PAINT BRUSH MAKER): Continue the antibiotic cream to right ear Follow up in 1 week for recheck Assessment & Plan (06/12/2018 2:56 PM PAINT BRUSH MAKER): Avoid water to right ear Apply antibiotic ointment to the right ear canal 6 times daily Ear culture taken today Stop Keflex Start Levaquin, stop if muscle or tendon aches occur and call the office. Perineal pain 05/18/2016 Incomplete emptying of bladder 12/25/2013 Abnormal electrocardiogram 07/21/2009 Immunizations Immunization Administration Dates Next Due DTaP [...] 7-Valent 10/26/2000,07/26,03/27/2000 Tdap 06/14/2024, 2,03/26/2020,08/19 Varicella 10/18/2010,07/26/2000 Social History Tobacco Use Types [...] on file Legal Sex Female 10:18 AM PAINT BRUSH MAKER Gender Identity Not on file Sexual Orientation Not on file Occupation Industry Job Start 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 Not on file Not on file Not on file Last Filed Vital Signs Vital Sign Reading Time Taken Comments Blood Pressure 128/68 06/17/2024 6:01 PM PAINT BRUSH MAKER Pulse 78 06/17/2024 6:01 PM PAINT BRUSH MAKER Temperature 37 C (98.6 F) 06/17/2024 6:01 PM PAINT BRUSH MAKER Respiratory Rate 24 06/17/2024 6:01 PM PAINT BRUSH MAKER Oxygen Saturation 97% 06/17/2024 6:01 PM PAINT BRUSH MAKER Inhaled Oxygen Concentration - - Weight 134.7 kg (297 lb) 06/17/2024 6:01 PM PAINT BRUSH MAKER Height 182.9 cm (6') 06/14/2024 10:47 AM PAINT BRUSH MAKER Body Mass Index 40.28 06/14/2024 10:47 AM PAINT BRUSH MAKER Plan of Treatment Not on file Procedures Procedure Name Priority Date/Time Associated Diagnosis Comments MA SIMPLE REPAIR SCALP/NECK/AX/GENIT /TRUNK 2.5CM/< Routine 06/14/2024 11:08 AM PAINT BRUSH MAKER Laceration of right index finger without foreign body without damage to nail, initial encounter HEPATITIS C ANTIBODY Routine 01/26/2021 7:28 AM CDT Encounter for donation of kidney from Last 3 Months or Most Recently Relevant to Health Maintenance Results * MA SIMPLE REPAIR SCALP/NECK/AX/GENIT/TRUNK 2.5CM/< (06/14/2024 11:08 AM PAINT BRUSH MAKER) Narrative Cathleen Guzman PA - 06/14/2024 11:08 AM PAINT BRUSH MAKER Cathleen Guzman PA 06/14/2024 11:29 AM Laceration [...] CDT) Hep C Ab Nonreactive Nonreactive [facility] Comment:Antibodies to HCV no t detected. Does NOT exclude the possibility of recent exposure to HCV. Blood 01/26/2021 7:28 AM CDT 01/26/2021 7:43 AM CDT Paul Sanders MD LAB MICROBIOLOGY - GENERAL ALISA GARCIA Edited Result - Final Performing Organization Address City/State/[facility] Co de Phone Number [facility] [place] [address] from Last 3 Months or Most Recently Relevant to Health Maintenance Insurance [facility] ACCESS CHOICE [facility] BLUE ACCESS IN Advance Directives For more information, please contact: [phone] * Full Code (Latest Code Status on File) Date Activated Date Inactivated Comments 02/27/2020 2:25 AM 02/28/2020 12:24 AM Care Teams Scouring Train Operator Chief Relationship Specialty Start Date End Date Jessica Zheng MD PCP - General Family Medicine 02/03/22
--- OUTSIDE RECORDS SUMMARY | 2024-08-11 17:06 | XMS_ITS | Clinical Summary ---
Author Organization [facility] Address [address] [place] [address] Phone Care Team Providers Care Resort Housekeeper Name Role Phone Phoenix Santos MD Unavailable [phone] David Kenney APRN, INSURANCE AGENCY MANAGER Primary Care Pr ovider Allergies Active Allergy [...] Encounters Date Type Department Care Team Description 06/27/2024 10:45 AM CORK WIRER Office Visit [facility] [address] [place] [address] Alyssa Colorado APRN, INSURANCE AGENCY MANAGER Viral gastroenteritis (Primary Dx) Discharge Disposition: Discharged to home or Selfcare 06/27/2024 Results Follow-Up [facility] Obstetrics & Gynecology [facility] [address] [place] [address] Alyssa Colorado APRN, PERICO 06/27/2024 Travel 05/23/2024 4:15 PM CORK WIRER Office Visit [facility] [address] [place] [address] David Kenney APRN, PERICO Migraine with aura and without status migrainosus, [...] 10/26/2000, 07/26/2000,03/27/2000 Pneumococcal conjugate PCV20 , polysaccharide [id number] conjugate, adjuvant, PF 08/29/2023 TDAP Vaccine 10/22/2021,03/26/2020,08/19/2009 Varicella Vaccine Live 10/18/2010,07/26/2000 Family History * Patient is adopted Relation Name Status Comments Mother Alive Social History Tobacco Use Types Packs/Day Years Used Date Smoking Tobacco: Never Smokeless Tobacco: Never Tobacco Cessation:Counseling Given: Not Answered Alcohol Use Standard Drinks/Week Comments Yes 0 (1 standard drink = 0.6 oz pur e alcohol) socially [employer] Utilities Answer Date Recorded In the past [...] often do you attend chur ch or latter day services? Never 05/23/2024 Do you belong to any clubs o r organizations such as scientologist groups, unions, fraternal or athletic groups, or [...] Total Score - Questions 1-9 0 04/25 [facility] - Occupational Stress Questionnaire Answer Date Recorded [...] any time in the past 12 m onths, were you homeless or living in a longterm (including now)? No 05/23/2024 Sexually Active Control Partners Comments Yes Comments No Sex and Gender Information Value Date Recorded Sex Assigned at Not on file Legal Sex Female 9:35 PM CDT Gender Identity Not on file Sexual Orientation Not on file Last Filed Vital Signs Vital Sign Reading Time Taken Comments Blood Pressure 124/76 06/27/2024 10:58 AM CORK WIRER Pulse 68 06/27/2024 10:58 AM CORK WIRER Temperature 36.5 C (97.7 F) 06/27/2024 10:58 AM CORK WIRER Respiratory Rate 18 06/27/2024 10:5 8 AM CORK WIRER Oxygen Saturation 98% 06/27/2024 10: 58 AM CORK WIRER Inhaled Oxygen Concentration - - Weight 132.9 kg (293 lb 1.6 oz) 025 10:58 AM CORK WIRER Height 182.9 cm (6') 06/27/2024 10:58 AM CORK WIRER Body Mass Index 39.75 06/27/2024 10:58 AM CORK WIRER Plan of Treatment Health Maintenance Due Date Last Done Comments Pap Smear 07/24/2020 SARS-COV-2 Immunization ( season) 2023 08/14/2020, 07/24/2020 Influenza Immunization (Season Ended) 2024 02/05/2023, 01/10/2022, 03/14/2021, Additional history exists DTaP/Tdap/Td Immunization (10 - Td or Tdap) 06/14/2034 06/14/2024, 10/22/2021, 03/26/2020, Additional history exists Respiratory Syncytial Virus (RSV) [...] on patient's age to complete this topic Procedures Procedure Name Priority Date/Time Associated Diagnosis Comments CBC WITH AUTO DIFFERENTIAL Routine 06/27/2024 11:50 AM CORK WIRER Viral gastroenteritis LIPASE Routine 06/27/2024 11:50 AM CORK WIRER Viral gastroenteritis UR TEST QUAL Routine 06/27/2024 11:50 AM CORK WIRER Viral gastroenteritis URINALYSIS REFLEX IF INDICATED BY ABNORMAL RESULTS Routine 06/27/2024 11:50 AM CORK WIRER Viral gastroenteritis CMP (COMPREHENSIVE METABOLIC PANEL) Routine 06/27/2024 11:50 AM CORK WIRER Viral gastroenteritis COMPLETE BLOOD COUNT (CBC) WITH DIFF Routine 06/27/2024 11:50 AM CORK WIRER Viral gastroenteritis from Last 3 Months Results * (ABNORMAL) URINALYSIS REFLEX IF INDICATED BY ABNORMAL RESULTS (06/27/2024 11:50 AM CORK WIRER) SPECIFIC GRAVITY 1.020 1.003 - 1.030 06/27/2024 2:05 PM [facility] URINE PH 6.0 5.0 - 9.0 06/27/2024 2:05 PM [facility] WBC ESTERASE Negative Negative 06/27/2024 2:05 PM [facility] NITRITE Negative Negative 06/27/2024 2:05 PM [facility] PROTEIN, RANDOM URINE 15 mg/dL(A) Negative 06/27/2024 2:05 PM [facility] URINE GLUCOSE, QUAL Negative Negative 06/27/2024 2:05 PM [facility] URINE KETONES Negative Negative 06/27/2024 2:05 PM [facility] UROBILINOGEN Normal Normal mg/dL 06/27/2024 2:05 PM [facility] URINE BLOOD 50 /uL(A) Negative scarlet/ul 06/27/2024 2:05 PM [facility] URINALYSIS COLOR Yellow 06/28/19 25 2:05 PM [facility] URINALYSIS CLARITY Slightly Cloudy 06/27/2024 2:05 PM [facility] WBC (Urine) 0-5 Negative, 0-5 /hpf 06/27/2024 2:05 PM [facility] URINE RBC'S 6-10(A) Negative, 0-2 /hpf 06/27/2024 2:05 PM CORK WIRER [facility] EPITHELIAL CELLS Large amount squamous /lpf 06/27/2024 2:05 PM CORK WIRER [facility] BACTERIA, URINE Many(A) Negative /hpf 06/27/2024 2:05 PM CORK WIRER [facility] URINE MUCOUS Few 06/27/2024 2:05 PM CORK WIRER [facility] Urine URINE SPECIMEN OBTAINED BY CLEAN CATCH PROCEDURE / Unknown Non-Phlebotomy Collection / Unknown 06/27/2024 11:50 AM CORK WIRER 06/27/2024 12:25 PM CORK WIRER us Alyssa Colorado APRN, INSURANCE AGENCY MANAGER URINE ORDERABLES Final R esult [facility] [address] [place] [address] * (ABNORMAL) CBC WITH AUTO DIFFERENTIAL (06/27/2024 11:50 AM CORK WIRER) WBC 10.39 4.00 - 12.00 10(3)/mcL 06/27/2024 12:39 PM CORK WIRER [facility] RBC 4.43 3.80 - 5.30 10(6)/mcL 06/27/2024 12:39 PM [facility] HEMOGLOBIN (HGB) 13.5 12.0 - 15.8 g/dL 06/27/2024 12:39 PM CORK WIRER [facility] HEMATOCRIT (HCT) 40.7 36.0 - 47.0 % 06/27/2024 12:39 PM CORK WIRER [facility] MCV 91.9 82.0 - 96.0 fL 06/27/2024 12:39 PM [facility] MCH 30.5 26.0 - 34.0 pg 06/27/2024 12:39 PM [facility] MCHC 33.2 31.0 - 36.0 g/dL 06/27/2024 12:39 PM [facility] PLATELET COUNT 419 140 - 440 10(3)/mcL 06/27/2024 12:39 PM [facility] RDW 12.5 11.8 - 15.5 % 06/27/2024 12:39 PM [facility] MPV 10.2 9.7 - 12.4 fL 06/27/2024 12:39 PM [facility] NEUTROPHILS 77.8(H) 47.0 - 73.0 % 06/27/2024 12:39 PM [facility] LYMPHOCYTES 14.6(L) 18.0 - 42.0 % 06/27/2024 12:39 PM [facility] MONOCYTES 5.2 4.0 - 12.0 % 06/27/2024 12:39 PM [facility] EOSINOPHILS 2.1 0.0 - 5.0 % 06/27/2024 12:39 PM [facility] BASOPHILS 0.3 0.0 - 1.0 % 06/27/2024 12:39 PM [facility] ABSOLUTE NEUTROPHILS 8.08(H) 1.60 - 7.70 10(3)/[facility] 06/27/2024 12:39 PM [facility] ABSOLUTE LYMPHOCYTES 1.52 1.30 - 3.20 10(3)/[facility] 06/27/2024 12:39 PM [facility] ABSOLUTE MONOCYTES 0.54 0.20 - 1.00 10(3)/[facility] 06/27/2024 12:39 PM [facility] ABSOLUTE EOSINOPHIL 0.22 0.00 - 0.40 10(3)/[facility] 06/27/2024 12:39 PM [facility] ABSOLUTE BASOPHILS 0.03 0.00 - 0.10 10(3)/[facility] 06/27/2024 12:39 PM [facility] NRBC PER 100 WBC 0 06/28/19 12:39 PM [facility] Blood Venipuncture / Unknown 06/27/2024 11:50 AM [facility] 06/27/2024 12:28 PM CORK WIRER us Alyssa Colorado CHIEF INFORMATION SECURITY OFFICER, INSURANCE AGENCY MANAGER HEMATOLOGY ORDERABLES Fi nal Result Performing Organization Address [facility] Co de Phone Number [facility] [address] [place] [address] * UR TEST QUAL (06/27/2024 11:50 AM CORK WIRER) PREG TEST,MONOCLONA L Negative 06/27/2024 12:06 PM CORK WIRER [facility] Urine Non-Phlebotomy Collection / Unknown 06/27/2024 11:50 AM CORK WIRER 06/27/2024 12:00 PM CORK WIRER us Alyssa Colorado CHIEF INFORMATION SECURITY OFFICER, INSURANCE AGENCY MANAGER URINE ORDERABLES Final R esult Performing Organization Address [facility] Co de Phone Number [facility] [address] [place] [address] * LIPASE (06/27/2024 11:50 AM CORK WIRER) LIPASE 11 8 - 78 U/L 06/27/2024 1:21 PM CORK WIRER [facility] Blood Venipuncture / Unknown 06/27/2024 11:50 AM CORK WIRER 06/27/2024 12:25 PM CORK WIRER us Alyssa Colorado CHIEF INFORMATION SECURITY OFFICER, INSURANCE AGENCY MANAGER CHEMISTRY ORDERABLES Fin al Result Performing Organization Address [facility] Co de Phone Number [facility] [address] [place] [address] * (ABNORMAL) CMP (COMPREHENSIVE METABOLIC PANEL) (06/27/2024 11:50 AM CORK WIRER) SODIUM 139 136 - 145 mmol/L 06/27/2024 1:21 PM CORK WIRER [facility] POTASSIUM 4.4 3.5 - 5.1 mmol/L 06/27/2024 1:21 PM CORK WIRER [facility] CHLORIDE 108(H) 98 - 107 mmol/L 06/27/2024 1:21 PM [facility] CO2, VENOUS 26 22 - 30 mmol/L 06/27/2024 1:21 PM [facility] ANION GAP 9.4 <18.0 mmol/L 06/27/2024 1:21 PM [facility] GLUCOSE 91 70 - 99 mg/dL 06/27/2024 1:21 PM [facility] BUN 11 5 - 18 mg/dL 06/27/2024 1:21 PM [facility] CREATININE, BLOOD 0.83 0.60 - 1.00 mg/dL 06/27/2024 1:21 PM [facility] BUN/CREATININE RATIO 13 12 - 20 ratio 06/27/2024 1:21 PM [facility] TOTAL PROTEIN 7.4 6.0 - 8.0 g/dL 06/27/2024 1:21 PM [facility] ALBUMIN 3.9 3.5 - 5.0 g/dL 06/27/2024 1:21 PM [facility] A/G RATIO 1.1 1.0 - 2.2 06/27/2024 1:21 PM [facility] CALCIUM 8.8 8.7 - 10.5 mg/dL 06/27/2024 1:21 PM [facility] T BILI 0.3 0.2 - 1.2 mg/dL 06/27/2024 1:21 PM [facility] SGOT (AST) 23 <43 U/L 06/27/2024 1:21 PM [facility] SGPT (ALT) 15 <56 U/L 06/27/2024 1:21 PM [facility] ALKALINE PHOSPHATASE 75 40 - 150 U/L 06/27/2024 1:21 PM [facility] IS THE PATIENT REQUIRED TO BE FASTING? No 06/27/2024 1:21 PM [facility] GFR, ESTIMATED >60 >=60 06/27/2024 1:21 PM CORK WIRER [facility] Comment: Creatinine Clearance is the preferred criteria for selecting drug dose adjustments in renally impaired patients. The GFR is provided as additional pertinent clinical information. GFR is reported in mL/min/1.73 sq m. Calculation based on the Chronic Kidney Disease Epidemiology Collaboration (CKD- EPI) equation refit without adjustment for race. GFR, EST. >60 >=60 025 1:21 PM CORK WIRER [facility] GFR, EST. NONAFRICAN >60 >=60 06/27/2024 1:21 PM CORK WIRER [facility] Blood Venipuncture / Unknown 06/27/2024 11:50 AM CORK WIRER 06/27/2024 12:25 PM CORK WIRER us Alyssa Colorado APRN, INSURANCE AGENCY MANAGER CHEMISTRY ORDERABLES Fin al Result [facility] [address] [place] [address] from Last 3 Months Insurance [employer]I A[employer]I [facility] [id number] [employer] SOI Advance Directives * Full Code (Latest Code Status on File) Date Activated Date Inactivated Comments 12/16/2021 8:15 PM 12/18/2021 3:02 PM CPR-Full Gamal atment: FULL ARREST: Attempt Resuscitation/CPR wit intubation and mechanical ventilation. PRE-ARREST: Use entire range of life support measures to stabilize the patient. Care Teams Resort Housekeeper Relationship Specialty Start Date End Date David Kenney APRN, INSURANCE AGENCY MANAGER [address] [address] PCP - General Advanced Practice Nurse 07/23/23 Phoenix Santos MD [address] [place] [address] Consulting Physician Gastroenterology 01/12/22
--- OUTSIDE RECORDS SUMMARY | 2024-08-11 17:06 | XMS_ITS | Data Portability ---
Author Organization [facility] [place] Address [address] [place] [address] Assessment Encounter Date Assessment Date Assessment LastModified by Organization Details LastModified Time 02/10/2021 02/10/2021 Annual gynecological exam performed. Patient will come back in a year unless there are new symptoms. Not available 02/10/2021 13:31:36 Plan of Treatment Reminders Order Date Submit Date Provider Last Modified By Organization Details Last Modified Time Details Appointments None recorded. Lab hbcab (hepatitis B core Ab) igm, serum 2020 [facility] (Lab), [address] [place], [address], 21:56:33 HBsAg (hepatitis B surface Ag), serum 2020 [facility] (Lab), [address] [place], [address], 21:56:32 hepatitis C virus Ab, serum 2020 [facility] (Lab), [address] [place], [address], 21:56:32 unlisted lab - HIV 1/2 antigen/ant ibody, reflex confirmatio n 2020 [facility] (Lab), [address] [place], [address], 10/22/202 1 21:56:33 RPR (rapid plasma reagin), serum 2020 021 [facility] (Lab), [address], [place], [address], 1 21:56:33 test, urine 2019 020 cfriederi ch1 [address], [place], [address], 0 15:48:14 test, urine 2019 020 cfriederi ch1 [address], [place], [address], 0 09:40:48 Referral None recorded. Procedures None recorded. Surgeries None recorded. Imaging None recorded. Medication Orders Nexplanon 68 mg subdermal implant 2019 020 cfriederi 1 Not available 0 15:48:14 Patient TargetsNo targets recorded. Patient Instructions Encounter Date Encounter Id Patient Instructions Last Modified By Organization Details Last Modified Time 04/05/2020 [id number] [email or web address] Not available 12:02:18 Reason for Referral None Reported. Results Created Date Observation Date Name Description Value Unit Range Abnormal Flag Note LastModifiedBy Organization Detail LastModifiedTime 03/22/20 20 03/22/2020 pregn luis manuel test, urine HCG negati ve Not Available [place] [address], [place], [address], 03/22/2020 14:21:46 04/05/20 20 04/05/2020 pregn luis manuel test, urine HCG negati ve Not Available [place] [address], [place], [address], 04/05/2020 11:47:15 02/11/20 21 02/10/2021 HEPAT ITIS [...] used inter mchugh eably . Not Available [facility] (Lab) [address] [facility] [address], [place], [address], 02/11/2021 21:56:32 02/11/20 21 02/10/2021 HEPAT ITIS B SURFA CE ANTIG EN hepatitis B surface antigen Non-re active non-re active This assay was perfo rmed using [employer] ratio n reage nts and test kits. Value s obtai natasha with other assay metho ds or kits canno t be used inter mchugh eably . Not Available [facility] (Lab) [address], [place], [address], 02/11/2021 21:56:32 02/11/20 21 02/10/2021 HIV 1/2 ANTIG EN/AN TIBOD Y, REFLE X CONFI RMATI ON HIV Ag-Ab total quant 0.13 idx <1.00 Not Available [facility] (Lab) [address], [place], [address], 02/11/2021 21:56:33 02/11/20 21 02/10/2021 HIV 1/2 ANTIG EN/AN TIBOD Y, REFLE X CONFI RMATI ON HIV Ag-Ab total Non-re active non-re active Not Available [facility] (Lab) [address], [place], [address], 02/11/2021 21:56:33 02/11/20 21 02/10/2021 HIV 1/2 ANTIG EN/AN TIBOD Y, REFLE X CONFI RMATI ON HIV-1 antibody quant 0.08 idx <1.00 Not Available [facility] (Lab) [address], [place], [address], 02/11/2021 21:56:33 02/11/20 21 02/10/2021 HIV 1/2 ANTIG EN/AN TIBOD Y, REFLE X CONFI RMATI ON HIV-1 antibody Non-re active non-re active Not Available [facility] (Lab) [address] [place], [address], 02/11/2021 21:56:33 02/11/20 21 02/10/2021 HIV 1/2 ANTIG EN/AN TIBOD Y, REFLE X CONFI RMATI ON HIV-1 antigen (P24) quant 0.13 idx <1.00 Not Available [facility] (Lab) [address], [place], [address], 02/11/2021 21:56:33 02/11/20 21 02/10/2021 HIV 1/2 ANTIG EN/AN TIBOD Y, REFLE X CONFI RMATI ON HIV-1 antigen (P24) Non-re active non-re active Not Available [facility] (Lab) [address] [place], [address], 02/11/2021 21:56:33 02/11/20 21 02/10/2021 HIV 1/2 ANTIG EN/AN TIBOD Y, REFLE X CONFI RMATI ON HIV-2 antibody quant 0.02 idx <1.00 Not Available [facility] (Lab) [address] [place], [address], 02/11/2021 21:56:33 02/11/20 21 02/10/2021 HIV 1/2 [...] limit s of the assay . React semyour speci mens must be inves tigat ed by addit ional , more speci fic suppl ement al tests . Speci men confi rmati on will be perfo rmed by the [employer] us HIV 1/2 Suppl ement al Assay . The perfo rmanc e of this assay has not been estab lishe d for neona jenn and the assay shoul d not be used in indiv idual s young er than 2 years of age. Not Available [facility] (Lab) [address], [place], [address], 02/11/2021 21:56:33 02/11/20 21 02/10/2021 RPR SCREE N/REF BRENNAN TITER /FTA RPR screen Nonrea ctive nonrea ctive Not Available [facility] (Lab) [address], [place], [address], 02/11/2021 21:56:33 02/11/20 21 02/10/2021 HEPAT ITIS B CORE, IGM hepatitis B core IgM antibody Negati ve negati ve Not Available [facility] (Lab) [address] [place], [address], 02/11/2021 21:56:33 02/11/20 21 02/10/2021 IMAGE GUIDE D PAP, REFLE X HPV IF ASCUS ONLY image guided Pap, reflex HPV ASCUS only SEE RESULT S BELOW CASE REPOR T: Cytol ogy Gynec ologi liza Repor t Case: [id number] Autho lydia fajardo Provi uma: Juan M Rivas Colle cted: 02/10 1433 FIELD SERVICE REP Order ing Locat ion: [place] Patho logy [...] as clini samir olmos nted. Not Available [facility] (Lab) [address], [place], [address], 02/17/2021 15:29:19 02/11/20 21 02/10/2021 TRICH OMONA S VAGIN FRANSISCO (RRNA ) trichomonas vaginalis ribosomal RNA (rrna) Negati ve negati ve Not Available [facility] (Lab) [address], [place], [address], 02/17/2021 15:29:20 02/11/20 21 02/10/2021 CT/GC (GÓMEZ) , THINP REP VIAL chlamydia trachomatis, PCR Negati ve negati ve Not Available [facility] (Lab) [address], [place], [address], 02/17/2021 15:29:20 02/11/20 21 02/10/2021 CT/GC (GÓMEZ) , THINP REP VIAL neisseria gonorrhoeae, PCR Negati ve negati ve Not Available [facility] (Lab) [address], [place], [address], 02/17/2021 15:29:20 Result Notes None recorded. Procedures Surgical History Date Name Laterality Status Provider Name and Address Organization Details Recorded Time 04/05/20 20 Control Implant Insertion completed Nicole King, [facility]- [address], [place], [address], [place] [facility] 04/05/2020 12:02:10 Appendectomy completed Michelle Reyes [facility] 03/22/2020 13:50:27 Imaging Results None recorded. [...] Updated DateTime 02/10/2021 175.26 cm 43 kg/m2 664599.38 scotty Zavaleta [place] - [facility] 02/10/2021 13:46:54 Date Recorded Systolic blood pressure Diastolic blood pressure Provider Name and Address Organization Details Last Updated DateTime 02/10/2021 126 mm[Hg] 80 mm[Hg] Nicole King, [facility]- [address], [place], [address], [facility] 02/10/2021 14:05:07 Date Recorded Body height Body mass index (BMI) Body mass index (BMI) Percentile per age and sex Body weight Systolic blood pressure Diastolic blood pressure Provider Name and Address Organization Details Last Updated DateTime 0 180.34 cm 37.2 kg/m2 97 % 292475. 16 g 133 mm[Hg] 70 mm[Hg] Michelle Reyes [facility] 0 13:59:41 Date Recorded Body height Body mass index (BMI) Percentile per age and sex Body mass index (BMI) Body weight Systolic blood pressure Diastolic blood pressure Provider Name and Address Organization Details Last Updated DateTime 0 180.34 cm 98 % 37.5 kg/m2 973171. 35 g 131 mm[Hg] 79 mm[Hg] Michelle Reyes [facility] 0 11:41:03 Social History Question Answer Notes LastModified by [employer] Details LastModified Time Tobacco Smoking Status Never Smoker [facility] 03/22/2020 13:49:32 Are You Blind [...] Functional Status Question Answer Note LastModified by [employer] Details LastModified Time Are you able to walk? YESWOREST Information not available 02/10/2021 What is your exercise level? Occasional Information not available 02/10/2021 Mental Status None recorded. Family History Nothing Reported. Medical History Condition Response Allergies (Food, seasonal, environmental ) N Other N Breast Cancer N Drug/Latex Allergies/Reactions N Blood Transfusion N Dermatologic Disorders N Lung Disease N [...] SNOMED-CT Code Diagnosis ICD10 Code Diagnosis Note [id number] Nicole King [facility] [address] [address] 03/22/2020 13:46:23 03/22/2020 17:49:21 test negative 953490464 Z32.02 Premenstru al tension syndrome 41526838 N94.3 Discussed all control options in depth [...] counseling and review of plan of care. [id number] Nicole King [facility] [address] [address] 04/05/2020 11:34:19 04/05/2020 12:03:27 Contraception care management 121051242 Z30.9 test negative 965744319 Z32.02 Insertion of subcutaneous contraceptive 099877567 Z30.9 Patient is here currently on her [...] 3mos COndoms if become SA x 4-8wks. [id number] Nicole King , [facility] [address],[facility] [place] [address] 02/10/2021 13:34:17 02/10/2021 14:55:52 Gynecologic examination 68121695 Z01.419 Take Calcium with Vitamin D 1200mg [...] panel ordered Sexually t ransmitted infectious disease 2362086 A64 Health Concerns Section Related Observation LastModified by Organization Detai ls LastModified Time None Recorded Concern Status LastModified by Organization Details LastModified Time None Recorded Advance Directives Directive None Recorded Payers Encounter Date Sequence Insurance Name Policy Number Policy Lira Covered Member ID Lira Member ID Guarantor Name 03/22/2020 1 [employer] (POS) [id number] Cipriano Crabtree [id number] Lyndsey Crabtree 04/05/2020 1 [employer] (POS) [id number] Cipriano Crabtree [id number] 8 Lyndsey Crabtree 02/10/2021 1 [employer] (POS) [id number] Cipriano Crabtree [id number] Lyndsey Bro Notes Date Note Type [...] Vapes occasionally ELIJAH Abarca- [address], [place], [address], [facility] 03/22/2020 15:25:56 04/05/2020 text/html Here for nexplan on insertion. ELIJAH Abarca-SAI [address], [place], [address], [facility] 04/05/2020 12:03:25 02/10/2021 text/html Annual GYNReport [...] typing Nicole King [facility]- [address], [place], [address], [facility] 02/10/2021 14:07:00 OBGyn Episode No OBEpisode recorded.
== END 2024-08-11 15:45 | disposition home or self-care (01) ==
PROVIDERS: Emergency Provider Registered Nurse
DX: M79.605 Pain in left leg (principal); M79.604 Pain in right leg; G89.29 Other chronic pain; M25.562 Pain in left knee; M25.561 Pain in right knee; F17.290 Nicotine dependence, other tobacco product, uncomplicated; F12.90 Cannabis use, unspecified, uncomplicated; J45.909 Unspecified asthma, uncomplicated
CPT/HCPCS: 99213; G0463

== ENCOUNTER 2024-09-10 15:16 | Emergency (ER) | payer OTHER, SELFPAY ==
--- OUTSIDE RECORDS SUMMARY | 2024-09-10 15:19 | XMS_ITS | Data Portability ---
Author Organization [facility] [place] Address [address] [place] [address] Assessment Encounter Date Assessment Date Assessment LastModified [...] (hepatitis B core Ab) igm, serum 2020 [facility] (Lab), [address] [place], [address], 21:56:33 HBsAg (hepatitis B surface Ag), serum 2020 [facility] (Lab), [address] [place], [address], 21:56:32 hepatitis C virus Ab, serum 2020 [facility] (Lab), [address] [place], [address], 21:56:32 unlisted lab - HIV 1/2 antigen/ant ibody, reflex confirmatio n 2020 [facility] (Lab), [address] [place], [address], 10/22/202 1 21:56:33 RPR (rapid plasma reagin), serum 2020 021 [facility] (Lab), [address], [place], [address], 1 21:56:33 test, urine 2019 020 cfriederi ch1 [address], [place], [address], 0 15:48:14 test, urine 2019 020 cfriederi ch1 [address], [place], [address], 0 09:40:48 Referral None recorded. Procedures None recorded. Surgeries None recorded. Imaging None recorded. Medication Orders Nexplanon 68 mg subdermal implant 2019 020 cfriederi 1 Not available 0 15:48:14 Patient TargetsNo targets recorded. Patient Instructions Encounter Date Encounter Id Patient Instructions Last Modified By Organization Details Last Modified Time 04/05/2020 [id number] [email or web address] Not available 12:02:18 Reason for Referral None Reported. Results Created Date Observation Date Name Description Value Unit Range Abnormal Flag Note LastModifiedBy Organization Detail LastModifiedTime 03/22/20 20 03/22/2020 pregn luis manuel test, urine HCG negati ve Not Available [place] [address], [place], [address], 03/22/2020 14:21:46 04/05/20 20 04/05/2020 pregn luis manuel test, urine HCG negati ve Not Available [facility] [address], [place], [address], 04/05/2020 11:47:15 02/11/20 21 02/10/2021 HEPAT ITIS [...] used inter mchugh eably . Not Available [facility] (Lab) [address] [facility], [place], [address], 02/11/2021 21:56:32 02/11/20 21 02/10/2021 HEPAT ITIS B SURFA CE ANTIG EN hepatitis B surface antigen Non-re active non-re active This assay was perfo rmed using [employer] reage nts and test kits. Value s obtai natasha with other assay metho ds or kits canno t be used inter mchugh eably . Not Available [facility] (Lab) [address] [facility] [facility], [place], [address], 02/11/2021 21:56:32 02/11/20 21 02/10/2021 HIV 1/2 ANTIG EN/AN TIBOD Y, REFLE X CONFI RMATI ON HIV Ag-Ab total quant 0.13 idx <1.00 Not Available [facility] (Lab) [address] [facility], [place], [address], 02/11/2021 21:56:33 02/11/20 21 02/10/2021 HIV 1/2 ANTIG EN/AN TIBOD Y, REFLE X CONFI RMATI ON HIV Ag-Ab total Non-re active non-re active Not Available [facility] (Lab) [address] [facility], [place], [address], 02/11/2021 21:56:33 02/11/20 21 02/10/2021 HIV 1/2 ANTIG EN/AN TIBOD Y, REFLE X CONFI RMATI ON HIV-1 antibody quant 0.08 idx <1.00 Not Available [facility] (Lab) [address] [facility], [place], [address], 02/11/2021 21:56:33 02/11/20 21 02/10/2021 HIV 1/2 ANTIG EN/AN TIBOD Y, REFLE X CONFI RMATI ON HIV-1 antibody Non-re active non-re active Not Available [facility] (Lab) [address] [place], [address], 02/11/2021 21:56:33 02/11/20 21 02/10/2021 HIV 1/2 ANTIG EN/AN TIBOD Y, REFLE X CONFI RMATI ON HIV-1 antigen (P24) quant 0.13 idx <1.00 Not Available [facility] (Lab) [address] [facility], [place], [address], 02/11/2021 21:56:33 02/11/20 21 02/10/2021 HIV 1/2 ANTIG EN/AN TIBOD Y, REFLE X CONFI RMATI ON HIV-1 antigen (P24) Non-re active non-re active Not Available [facility] (Lab) [address] [place], [address], 02/11/2021 21:56:33 02/11/20 21 02/10/2021 HIV 1/2 ANTIG EN/AN TIBOD Y, REFLE X CONFI RMATI ON HIV-2 antibody quant 0.02 idx <1.00 Not Available [facility] (Lab) [address] [place], [address], 02/11/2021 21:56:33 02/11/20 21 02/10/2021 HIV 1/2 [...] on will be perfo rmed by the [employer] us HIV 1/2 Suppl ement al Assay . The perfo rmanc e of this assay has not been estab lishe d for neona jenn and the assay shoul d not be used in indiv idual s young er than 2 years of age. Not Available [facility] (Lab) [address] [facility], [place], [address], 02/11/2021 21:56:33 02/11/20 21 02/10/2021 RPR SCREE N/REF BRENNAN TITER /FTA RPR screen Nonrea ctive nonrea ctive Not Available [facility] (Lab) [address] [facility], [place], [address], 02/11/2021 21:56:33 02/11/20 21 02/10/2021 HEPAT ITIS B CORE, IGM hepatitis B core IgM antibody Negati ve negati ve Not Available [facility] (Lab) [address] [place], [address], 02/11/2021 21:56:33 02/11/20 21 02/10/2021 IMAGE GUIDE D PAP, REFLE X HPV IF ASCUS ONLY image guided Pap, reflex HPV ASCUS only SEE RESULT S BELOW CASE REPOR T: Cytol ogy Gynec ologi liza Repor t Case: [id number] Autho lydia fajardo Provi uma: Juan M Rivas Colle cted: 02/10 1433 [employer] Order ing Locat ion: [place] Patho logy [...] s: LMP (if appli cable ): Clini ilza Histo ry/Pr eviou s Pap: Type of [...] as clini samir olmos nted. Not Available [facility] (Lab) [address] [facility], [place], [address], 02/17/2021 15:29:19 02/11/20 21 02/10/2021 TRICH OMONA S VAGIN FRANSISCO (RRNA ) trichomonas vaginalis ribosomal RNA (rrna) Negati ve negati ve Not Available [facility] (Lab) [address] [facility], [place], [address], 02/17/2021 15:29:20 02/11/20 21 02/10/2021 CT/GC (GÓMEZ) , THINP REP VIAL chlamydia trachomatis, PCR Negati ve negati ve Not Available [facility] (Lab) [address] [facility], [place], [address], 02/17/2021 15:29:20 02/11/20 21 02/10/2021 CT/GC (GÓMEZ) , THINP REP VIAL neisseria gonorrhoeae, PCR Negati ve negati ve Not Available [facility] (Lab) [address] [facility], [place], [address], 02/17/2021 15:29:20 Result Notes None recorded. Procedures Surgical History Date Name Laterality Status Provider Name and Address Organization Details Recorded Time 04/05/20 20 Control Implant Insertion completed Nicole King, [facility]- [address], [place], [address], [place] [facility] 04/05/2020 12:02:10 Appendectomy completed Michelle Reyes [facility] 03/22/2020 13:50:27 Imaging Results None [...] Updated DateTime 02/10/2021 175.26 cm 43 kg/m2 519483.38 scotty Zavaleta [place] - [facility] 02/10/2021 13:46:54 Date Recorded Systolic blood pressure Diastolic blood pressure Provider Name and Address Organization Details Last Updated DateTime 02/10/2021 126 mm[Hg] 80 mm[Hg] Nicole King, [facility]- [address], [place], [address], [facility] 02/10/2021 14:05:07 Date Recorded Body height Body mass index (BMI) Body mass index (BMI) Percentile per age and sex Body weight Systolic blood pressure Diastolic blood pressure Provider Name and Address Organization Details Last Updated DateTime 0 180.34 cm 37.2 kg/m2 97 % 475592. 16 g 133 mm[Hg] 70 mm[Hg] Michelle Reyes [facility] 0 13:59:41 Date Recorded Body height Body mass index (BMI) Percentile per age and sex Body mass index (BMI) Body weight Systolic blood pressure Diastolic blood pressure Provider Name and Address Organization Details Last Updated DateTime 0 180.34 cm 98 % 37.5 kg/m2 337882. 35 g 131 mm[Hg] 79 mm[Hg] Michelle Reyes [facility] 0 11:41:03 Social History Question Answer Notes LastModified by [employer] Details LastModified Time Tobacco Smoking Status Never Smoker [facility] 03/22/2020 13:49:32 Are You Blind Or Do You Have Difficulty Seeing? No Information not available 02/10/2021 Are You Deaf Or Do You Have Serious Difficulty Hearing? No Information not available 02/10/2021 What Type Of Diet Are You Following? REGULAR Information not available 02/10/2021 Sex: Unknown Functional Status Question Answer Note LastModified by [employer] Details LastModified Time Are you able to walk? YESWOREST Information not available 02/10/2021 Do you or have you ever used e-cigarettes or vape? Current user of electronic cigarettes [email or web address] Information not available 03/22/2020 What is your exercise level? Occasional Information not available 02/10/2021 Mental Status None recorded. Family History Nothing Reported. Medical History Condition Response Allergies (Food, seasonal, environmental ) N Other N Breast Cancer N Drug/Latex Allergies/Reactions N Blood Transfusion N Lung Disease N Dermatologic Disorders N Defects or Inherited Disease N Breast [...] SNOMED-CT Code Diagnosis ICD10 Code Diagnosis Note [id number] Nicole King [facility] [address] [address] 03/22/2020 13:46:23 03/22/2020 17:49:21 test negative 983337011 Z32.02 Premenstru al tension syndrome 40849066 N94.3 Discussed all control options in depth [...] counseling and review of plan of care. [id number] Nicole King [facility] [address] [address] 04/05/2020 11:34:19 04/05/2020 12:03:27 Contraception care management 701669673 Z30.9 test negative 640340268 Z32.02 Implantati on of subcutaneous contraceptive 164759721 Z30.9 Patient is here currently on her [...] 3mos COndoms if become SA x 4-8wks. [id number] Nicole King [facility] [address],[facility] [place] [address] 02/10/2021 13:34:17 02/10/2021 14:55:52 Gynecologic examination 16090843 Z01.419 Take Calcium with Vitamin D 1200mg [...] panel ordered Sexually t ransmitted infectious disease 4078484 A64 Health Concerns Section Related Observation LastModified by Organization Detai ls LastModified Time None Recorded Concern Status LastModified by Organization Details LastModified Time None Recorded Advance Directives Directive None Recorded Payers Encounter Date Sequence Insurance Name Policy Number Policy Lira Covered Member ID Lira Member ID Guarantor Name 03/22/2020 1 [employer] (POS) [id number] Cipriano Crabtree [id number] Lyndsey Crabtree 04/05/2020 1 [employer] (POS) [id number] Cipriano Crabtree [id number] Lyndsey Crabtree 02/10/2021 1 [employer] (POS) [id number] Cipriano Crabtree [id number] Lyndsey Bro Notes Date Note Type [...] Vapes occasionally ELIJAH Abarca- [address], [place], [address], [facility] 03/22/2020 15:25:56 04/05/2020 text/html Here for nexplan on insertion. ELIJAH Abarca- [address], [place], [address], [facility] 04/05/2020 12:03:25 02/10/2021 text/html Annual GYNReport [...] smear and high risk HPV typing Nicole King, [facility]- [address], [place], [address], [facility] 02/10/2021 14:07:00 OBGyn Episode No OBEpisode recorded.
--- OUTSIDE RECORDS SUMMARY | 2024-09-10 15:19 | XMS_ITS | Referral Summary ---
Author Organization [facility] Medical [facility] Building B Address [address] [place] [address] Care Team Providers Care Coding Validator Name Role Phone Jessica Zheng MD Primary Care Provider Encounters Date Type Department Care Team Description 08/28/2024 Results Follow-Up [facility] at [address] [address] Woody Fofana NP Vaginitis panel Vaginal, Herpes Simplex Virus (HSV) PCR Vaginal, Urine culture Urine, clean voided 08/27/2024 10:58 PM CDT - 08/27/2024 11:59 PM CDT Hospital Encounter [address] [address] Labial pain; Burning with urination; Vaginal irritation Discharge Disposition: Discharge to home or self care 08/27/2024 4:45 PM CDT Office Visit [facility] at [address] [address] Woody Fofana NP Labial pain (Primary Dx); Burning with urination; Vaginal irritation 06/17/2024 6:00 PM STORAGE BATTERY INSPECTOR Office Visit [facility] at [address] [address] Woody Fofana NP Localized infection of skin (Primary Dx) 06/14/2024 11:15 AM STORAGE BATTERY INSPECTOR Office Visit [facility] at [address] [address] Cathleen Guzman PA Laceration of [...] Active Additional Information Patient not taking.Reported on 08/27/2024 metoclopramide (REGLAN) 10 mg tablet Take 1 tablet (10 mg total) by mouth every 6 (six) hours as needed (Nausea, vomiting) 20 tablet 09/16/19 21 Active Additional Information Patient not taking.Reported on 08/27/2024 dicyclomine (BENTYL) 20 mg tablet Take 1 tablet (20 mg total) by mouth every 8 (eight) hours as needed (Crampy abdominal pain) 10 tablet 09/16/19 21 Active Additional Information Patient not taking.Reported on 08/27/2024 acetaminophen (TYLENOL) 500 mg tablet Take 2 tablets (1,000 mg total) by mouth every 8 (eight) hours as needed for pain for up to 20 doses 40 tablet 09/16/19 21 Active Additional Information Patient not taking.Reported on 08/27/2024 famotidine (PEPCID) 40 mg tablet Take 1 tablet (40 mg total) by mouth nightly for 14 days 14 tablet 09/16/19 21 Active Additional Information Patient not taking.Reported on 03/15/2022 naproxen (NAPROSYN) 500 mg tabletIndications: Pain Take 1 tablet (500 mg total) by mouth 2 (two) times a day with meals 20 tablet 10/06/19 21 Active Additional Information Patient not taking.Reported on 08/27/2024 cyclobenzaprine (FLEXERIL) 5 mg tabletIndications: Muscle Spasm Take 1 tablet (5 mg total) by mouth 2 (two) times a day as needed for muscle spasms 6 tablet 10/06/19 21 Active Additional Information Patient not taking.Reported on 08/27/2024 chlorhexidine (PERIDEX) 0.12 % solution Apply 15 mL to the mouth or throat 2 (two) times a day Twice daily gargle for 2 minutes, swish around in mouth, then spit out. Collaborating physician Rakesh Kong MD 120 mL 1 11/29/19 21 Active Additional Information Patient not taking.Reported on 08/27/2024 ondansetron ODT (ZOFRAN-ODT) 4 mg disintegrating tablet Take 1 tablet (4 mg total) by mouth every 8 (eight) hours as needed for nausea Collaborating physician Rakesh Kong MD 20 tablet 02/04/20 22 Active Additional Information Patient not taking.Reported on 08/27/2024 promethazine-DM (PROMETHAZINE-DM) 1.25-3 mg/mL syrup Take 5 mL by mouth 4 (four) times a day as needed for cough Collaborating physician Rakesh Kong MD 118 mL 02/04/20 22 Active Additional Information Patient not taking.Reported on 08/27/2024 SUMAtriptan (IMITREX) 50 mg tablet PLEASE SEE ATTACHED FOR DETAILED DIRECTIONS Active gabapentin (NEURONTIN) 300 mg capsule Take 1 capsule (300 mg total) by mouth nightly 08/12/19 25 Active mupirocin (BACTROBAN) 2 % ointmentIndication s:Labial pain Apply topically 3 (three) times a day for 10 days 22 g 08/28/19 25 025 cephalexin (KEFLEX) 500 mg capsule Take 1 capsule (500 mg total) by mouth 2 (two) times a day for 7 days 14 capsule 08/30/19 25 025 Active Problems Problem Noted Date Diagnosed Date Chronic tonsillitis 03/15/2022 Assessment & Plan (03/15/2022 2:49 PM STORAGE BATTERY INSPECTOR): Will obtain records [facility], [facility] by [place] and Urgent care on [place], [facility]. Acute tonsillitis due to infectious mononucleosi s 02/03/2022 Nausea and vomiting 02/03/2022 Elevated LFTs 02/03/2022 Asthma 12/16/2021 Marijuana dependence 12/16/2021 Dental caries 11/30/2020 Assessment & Plan (11/30/2020 11:13 AM CDT): Continue Amoxicillin and steroids and Peridex after meals and before bedtime Have Dental evaluation Will obtain records from the [facility] regarding Tonsillar infections and consider proceeding with Tonsillectomy and Adenoidectomy based on their information Tonsillitis 11/28/2020 Assessment & Plan (11/30/2020 11:13 AM CDT): Continue Amoxicillin and steroids and Peridex after meals and before bedtime Have Dental evaluation Will obtain records from the [facility] regarding Tonsillar infections and consider proceeding with Tonsillectomy and Adenoidectomy based on their information Appendicitis 02/27/2020 Assessment & Plan (03/16/2020 11:51 AM STORAGE BATTERY INSPECTOR): Diet as tolerated. Okay to return to work with light duty. No heavy lifting greater than 20 lb for 4 weeks. No submerging incisions for 4 weeks. Please call for any further questions or concerns. 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 Not on file Not on file Not on file Last Filed Vital Signs Vital Sign Reading Time Taken Comments Blood Pressure 120/72 08/27/2024 4:39 PM CDT Pulse 64 08/27/2024 4:39 PM CDT Temperature 36.8 C (98.3 F) 08/27/2024 4:39 PM CDT Respiratory Rate 20 08/27/2024 4:39 PM CDT Oxygen Saturation 99% 08/27/2024 4:39 PM CDT Inhaled Oxygen Concentration - - Weight 132.5 kg (292 lb) 08/27/2024 4:39 PM CDT Height 182.9 cm (6') 06/14/2024 10:47 AM STORAGE BATTERY INSPECTOR Body Mass Index 39.6 06/14/2024 10:47 AM STORAGE BATTERY INSPECTOR Plan of Treatment Not on file Procedures Procedure Name Priority Date/Time Associated Diagnosis Comments POCT URINALYSIS DIPSTICK Routine 08/27/2024 5:06 PM CDT Burning with urination VAGINITIS PANEL Routine 08/27/2024 5:06 PM CDT Labial pain Vaginal irritation URINE CULTURE Routine 08/27/2024 5:06 PM CDT Burning with urination HERPES SIMPLEX VIRUS (HSV) PCR Routine 08/27/2024 5:06 PM CDT Labial pain ID SIMPLE REPAIR SCALP/NECK/AX/GENIT/ TRUNK 2.5CM/< Routine 06/14/2024 11:08 AM STORAGE BATTERY INSPECTOR Laceration of right index finger without foreign body without damage to nail, initial encounter HEPATITIS C ANTIBODY Routine 01/26/2021 7:28 AM CDT Encounter for donation of kidney from Last 3 Months or Most Recently Relevant to Health Maintenance Results * Herpes Simplex Virus (HSV) PCR Vaginal (08/27/2024 5:06 PM CDT) HSV DNA Not Detected Not Detected [facility] Comment: Interpretive Data This assay is performed using primers specific for the DNA polymerase gene of both HSV-1 and HSV-2. The assay contains unique primer/probe sets capable of distinguishing between HSV-1 and HSV-2. This assay has been cleared by the U.S. Food and Drug Administration for performance on cerebrospinal fluid and genital swabs. The assay has been evaluated for use on alternative sample types, though it is not FDA cleared for these applications. The performance of all sample types has been validated by the performing laboratory and deemed acceptable for patient testing. Current Interpretive Data was last reviewed on 08/20/2018 Testing performed by: [facility], [address] [facility] [place]., [address] Vaginal 08/27/2024 5:06 PM CDT 08/28/2024 5:38 AM CDT Woody Fofana NP LAB MICROBIOLOGY - [facility] Final Result Performing Organization Address [facility] Co de Phone Number SANDY LANGLEY [address] [place] [address] [facility] * Vaginitis panel Vaginal (08/27/2024 5:06 PM CDT) Pathologist [facility] Bacterial Vaginosis Not Detected Not Detected Comment:A negative result do es not preclude a possible infection. Results should be considered in conjunction with clinical presentation to determine the disease status. Tram group Not Detected Not Detected [facility] Tram glabrata/ krusei Not Detected Not Detected [facility] Trichomonas DNA Not Detected Not Detected [facility] Vaginal 08/27/2024 5:06 PM CDT 08/28/2024 12:01 AM CDT Narrative [facility] - 08/28/2024 1:35 AM CDT The [employer] workid Xpert Xpress MVP test detects DNA targets from anaerobic bacteria associated with bacterial vaginosis, Tram species associated with vulvovaginal candidiasis, and Trichomonas vaginalis by nucleic acid amplification testing (NAAT). Results should be interpreted in conjunction with other clinical data. This test cannot be used to assess therapeutic success or failure because target nucleic acids may persist following antimicrobial therapy. This test has been cleared by the [place] Food and Drug Administration to aid in the diagnosis of vaginal infections in symptomatic women ages 14 and older. The performance characteristics of this test have been verified by the [facility]. Woody Fofana NP LAB MICROBIOLOGY - GENERAL VERONICAHermelinda RADHA Final Result Performing Organization Address [facility]/ZIP Co de Phone Number SANDY LANGLEY [address] [place] [address] [facility] * (ABNORMAL) POCT urinalysis dipstick (08/27/2024 5:06 PM CDT) Color, Urine, POC Yellow Clarity, ur, POC Clear Clear Glucose, ur, POC Negative Negative Bilirubin, ur, POC Negative Negative Ketones, ur, POC Negative Negative Specific Wren, POC 1.030 1.003 - 1.030 Blood, ur, POC Moderate(A) Negative pH, ur, POC 5.5 5.0 - 8.0 Protein, ur, POC 30.(A) Negative Urobilinogen, urine, POC 0.2 0.2 - 1.0 mg/dL Nitrite, ur, POC Negative Negative Leukocytes, ur, POC Negative Negative Lot Number [id number] Urine 08/27/2024 5:06 PM CDT Woody Fofana NP POINT OF CARE TEST ORDERABLES F inal Result * (ABNORMAL) Urine culture Urine, clean voided (08/27/2024 5:06 PM CDT) Report Final Report: Less than 100,000 colonies/mL (clinically insignificant growth based on current clinical standards) Includes the following: Less than 100,000 colonies/mL Streptococcus agalactiae (Group B Streptococci) * * * * * * * * * * * * * * * * * * * * Resistance to penicillin in Group B Streptococcus has not been reported. Group B Streptococci are universally susceptible to beta-lactam antibiotics and vancomycin. Routine susceptibility testing is not performed. In penicillin allergic patients, please contact the laboratory at [phone] to request susceptibility testing * * * * * * * * * * * * * * * * * * * * This laboratory routinely screens urine cultures for any amount of Group B Streptococcus in reproductive age women. Recovery of this isolate may be significant in women, however, the recovery of this organism in small quantities in non- women represents contamination with periurethral dorothy. (.) Comment:Testing performed by : [facility], [address] [facility], [place]., [address] Organism (CLINICALLY INSIGNIFICANT GROWTH [facility] Organism STREPTOCOCCUS AGALACTIAE (GROUP B STREPTOCOCCI) [facility] Urine, clean voided 08/27/2024 5:06 PM CDT 08/28/2024 2:08 AM CDT Narrative SANDY - 08/29/2024 6:41 AM CDT Testing performed by [facility] Microbiology Laboratory ([phone]) Woody Fofana NP LAB MICROBIOLOGY - GENERAL ALISA GARCIA Final Result ERICCAMILA LANGLEY [address] [place] [address] * ID SIMPLE REPAIR SCALP/NECK/AX/GENIT/TRUNK 2.5CM/< (06/14/2024 11:08 AM STORAGE BATTERY INSPECTOR) Narrative Cathleen Guzman PA - 06/14/2024 11:08 AM STORAGE BATTERY INSPECTOR Cathleen Guzman PA 06/14/2024 11:29 AM Laceration [...] Procedure completion: Tolerated well, no immediate complications Cathleen SOOD IN [facility]IC/BEDSIDE ORDERA BLES Final Result * Hepatitis C antibody (01/26/2021 7:28 AM CDT) Hep C Ab Nonreactive Nonreactive [facility] Comment:Antibodies to HCV no t detected. Does NOT exclude the possibility of recent exposure to HCV. Blood 01/26/2021 7:28 AM CDT 01/26/2021 7:43 AM CDT Paul Sanders MD LAB MICROBIOLOGY - GENERAL ALISA GARCIA Edited Result - Final SANDY [facility] [address] [facility] [place] [address] from Last 3 Months or Most Recently Relevant to Health Maintenance Insurance [employer] Address: [address] [place] [address] [facility] Advance Directives For more information, please contact: [phone] * Full Code (Latest Code Status on File) Date Activated Date Inactivated Comments 02/27/2020 2:25 AM 02/28/2020 12:24 AM Care Teams Coding Validator Relationship Specialty Start Date End Date Jessica Zheng MD PCP - General Family Medicine 02/03/22
--- OUTSIDE RECORDS SUMMARY | 2024-09-10 15:19 | XMS_ITS | Encounter Summary ---
Author Organization [facility] Healthcare Address [address] [place] [address] Care Team Providers Care Crusher And Blender Operator Name Role Phone Jessica Zheng MD Primary Care Provider Encounter Details Date Type Department Care Team (Late st Contact Info) Description 08/28/2024 Results Follow-Up [facility]ient Care at [address] [address] Woody Fofana NP [address] [place] [address] [address] [place] [address] Vaginitis panel Vaginal, Herpes Simplex Virus (HSV) PCR Vaginal, Urine culture Urine, clean voided Social History Tobacco Use Types Packs/Day Years Used Date Smoking Tobacco: Every Day Vaping Smokeless Tobacco: Never Comments:occasional vape Alcohol Use Standard Drinks/Week Comments Yes 0 (1 standard drink = 0.6 oz pur e alcohol) scially Comments No Sex and Gender Information Value Date Recorded Sex Assigned at Not on file Legal Sex Female 10:18 AM VIDEO MACHINES MECHANIC Gender Identity Not on file Sexual Orientation Not on file Occupation Industry Job Start 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 Not on file Not on file Not on file documented as of this encounter Ordered Prescriptions Prescription Sig Dispense Quantity Refills Last Filled Start Date End Date cephalexin (KEFLEX) 500 mg capsule Take 1 capsule (500 mg total) by mouth 2 (two) times a day for 7 days 14 capsule 08/29/2024 documented in this encounter Miscellaneous Notes * Result Encounter Note - Elizabet Edwards MA - 08/29/2024 5:17 PM CDT Patient notified documented in this encounter Plan of Treatment Not on file documented as of this encounter Visit Diagnoses Not on filedocumented in this encounter Care Teams Crusher And Blender Operator Relationship Specialty Start Date End Date Jessica Zheng MD PCP - General Family Medicine 02/03/22 documented as of this encounter
--- OUTSIDE RECORDS SUMMARY | 2024-09-10 15:20 | XMS_ITS | Clinical Summary ---
Author Organization [facility] Address [address] [place] [address] Phone Care Team Providers Care Chair Car Attendant Name Role Phone Phoenix Santos MD Unavailable [phone] David Kenney APRN, BLOOD BANK COORDINATOR Primary Care Pr ovider Allergies Active Allergy [...] 24 hours. 9 Tablet 3 5 Active pregabalin (LYRICA) 75 MG CapsuleIndicatio ns:Chronic pain of both lower extremities Take 1 Capsule by mouth 2 times daily. 60 Capsule 1 5 Active Active Problems Problem Noted Date Diagnosed Date Marijuana dependence 12/16/2021 Asthma 12/16/2021 Resolved Problems Problem Noted Date Diagnosed Date Resolved Date Pancolitis 12/16/2021 12/18/2021 Diarrhea 12/16/2021 12/18/2021 Encounters Date Type Department Care Team Description 09/02/2024 Results Follow-Up [facility] [address] [place] [address] David Kenney APRN, CNP XR KNEE 3 VIEWS BILATERAL 08/28/2024 5:02 PM CDT - 08/28/2024 11:59 PM CDT Hospital Encounter [facility]iology [address] [place] [address] David Kenney APRN, CNP Discharge Disposition: Discharged to home or Selfcare 08/28/2024 4:30 PM CDT Office Visit [facility] [address] [place] [address] David Kenney APRN, CNP Chronic pain of both lower extremities (Primary Dx) Discharge Disposition: Discharged to home or Selfcare 08/28/2024 Travel 06/27/2024 10:45 AM STRIPPING SHOVEL OILER Office Visit [facility] [address] [place] [address] Alyssa Colorado APRN, CNP Viral gastroenteritis (Primary Dx) Discharge Disposition: Discharged to home or Selfcare 06/27/2024 Results Follow-Up [facility] [address] [place] [address] Alyssa Colorado APRN, PERICO CMP (COMPREHENSIVE METABOLIC PANEL), URINALYSIS REFLEX IF INDICATED BY ABNORMAL RESULTS, UR TEST QUAL, Additional followed-up results: 2 06/27/2024 Travel from Last 3 Months Immunizations Immunization [...] 10/26/2000, 07/26/2000,03/27/2000 Pneumococcal conjugate PCV20 , polysaccharide CWE121 conjugate, adjuvant, PF 08/29/2023 TDAP Vaccine 10/22/2021,03/26/2020,08/19/2009 Varicella Vaccine Live 10/18/2010,07/26/2000 Family History * Patient is adopted Relation Name Status Comments Mother Alive Social History Tobacco Use Types Packs/Day Years Used Date Smoking Tobacco: Never Smokeless Tobacco: Never Tobacco Cessation:Counseling Given: Not Answered Alcohol Use Standard Drinks/Week Comments Yes 0 (1 standard drink = 0.6 oz pur e alcohol) socially Lecere Utilities Answer Date Recorded In the past 12 months has [employer], gas, oil, or water [employer] threatened to shut off services in your home? No 05/23/2024 Social Connection and Isolat ion Panel [NHANES] Answer Date Recorded In a typical week, how many times do you talk on the phone with family, friends, or neighbors? More than three times a week 05/23/2024 How often do you get togethe r with friends or relatives? Never 05/23/2024 How often do you attend [facility] or confucianist services? Never 05/23/2024 Do you belong to any clubs o r organizations such as congregation groups, unions, fraternal or athletic groups, or [...] Total Score - Questions 1-9 0 04/25 [facility] - Occupational Stress [...] any time in the past 12 m [facility], were you homeless or living in a residential (including now)? No 05/23/2024 Sexually Active Control Partners Comments Yes Comments No Sex and Gender Information Value Date Recorded Sex Assigned at Not on file Legal Sex Female 9:35 PM CDT Gender Identity Not on file Sexual Orientation Not on file Last Filed Vital Signs Vital Sign Reading Time Taken Comments Blood Pressure 126/90 08/28/2024 4:17 PM CDT Pulse 74 08/28/2024 4:17 PM CDT Temperature 37 C (98.6 F) 08/28/2024 4:17 PM CDT Respiratory Rate 12 08/28/2024 4:17 PM CDT Oxygen Saturation 99% 08/28/2024 4:17 PM CDT Inhaled Oxygen Concentration - - Weight 131.5 kg (289 lb 14.4 oz) 08/28/2024 4:17 PM CDT Height 182.9 cm (6') 06/27/2024 10:58 AM [employer]EL OILER Body Mass Index 39.32 06/27/2024 10:58 AM [employer]IPPING [employer]EL OILER Plan of Treatment Upcoming Encounters Date Type Department Care Team (Late st Contact Info) Description 09/25/2024 4:30 PM CDT Office Visit [facility] [address] [place] [address] David Kenney APRN, BLOOD BANK COORDINATOR [address] [address] 09/29/2024 3:30 PM CDT [facility] [address] [place] [address] David Kenney APRN, BLOOD BANK COORDINATOR [address] [place] [id number] Discharge Disposition: Discharged to home or Selfcare Health Maintenance Due Date Last Done Comments [...] Name Priority Date/Time Associated Diagnosis Comments XR KNEE 3 VIEWS BILATERAL Routine 08/28/2024 5:10 PM CDT Chronic pain of both lower extremities CBC WITH AUTO DIFFERENTIAL Routine 06/27/2024 11:50 AM [employer] Viral gastroenteritis LIPASE Routine 06/27/2024 11:50 AM [employer] O[employer]ER Viral gastroenteritis UR TEST QUAL Routine 06/27/2024 11:50 AM [employer]IP[employer] O[employer]ER Viral gastroenteritis URINALYSIS REFLEX IF INDICATED BY ABNORMAL RESULTS Routine 06/27/2024 11:50 AM [employer]IP[employer] O[employer]ER Viral gastroenteritis CMP (COMPREHENSIVE METABOLIC PANEL) Routine 06/27/2024 11:50 AM [employer]IP[employer] O[employer]ER Viral gastroenteritis COMPLETE BLOOD COUNT (CBC) WITH DIFF Routine 06/27/2024 11:50 AM STRIPPING SHOVEL OILER Viral gastroenteritis from Last 3 Months Results * XR KNEE 3 VIEWS BILATERAL (08/28/2024 5:10 PM CDT) Anatomical Region Laterality Modality LOWER EXTREMITY, knee Bilateral Digital Ra diography 09/02/2024 6:37 AM CDT Impressions 09/02/2024 6:39 AM CDT IMPRESSION: Minimal degenerative changes bilateral knees. Narrative 09/02/2024 6:39 AM CDT EXAM DESCRIPTION: XR KNEE 3 VIEWS BILATERAL REASON FOR STUDY: chronic bilat knee pain, worse x 3 months. NKI. swelling is present. difficulty bearing weight for long periods of time. TECHNIQUE: Three views each knee COMPARISON: None available FINDINGS: No fractures or dislocation. No lytic or destructive change. Minimal degenerative changes patellofemoral compartments. Soft tissues unremarkable without joint effusion. THIS IS AN ELECTRONICALLY VERIFIED FINAL REPORT 09/02/2024 6:37 AM - Electronically signed by Dominic Darnell M.D. RB: RB Report ID: [id number] [place] Location: [id number] Procedure Note Dominic Darnell MD - 09/02/2024 EXAM DESCRIPTION: XR KNEE 3 VIEWS BILATERAL REASON FOR STUDY: chronic bilat knee pain, worse x 3 months. NKI. swelling is present. difficulty bearing weight for long periods of time. TECHNIQUE: Three views each knee COMPARISON: None available FINDINGS: No fractures or dislocation. No lytic or destructive change. Minimal degenerative changes patellofemoral compartments. Soft tissues unremarkable without joint effusion. THIS IS AN ELECTRONICALLY VERIFIED FINAL REPORT 09/02/2024 6:37 AM - Electronically signed by Dominic Darnell M.D. RB: RB Report ID: [id number] [place] Location: [id number] IMPRESSION: Minimal degenerative changes bilateral knees. David Kenney APRN, PERICO IMG DIAGNOSTIC O RDERABLES Final Result * (ABNORMAL) URINALYSIS REFLEX IF INDICATED BY ABNORMAL RESULTS (06/27/2024 11:50 AM STRIPPING SHOVEL OILER) SPECIFIC GRAVITY 1.020 1.003 - 1.030 06/27/2024 2:05 PM [facility] URINE PH 6.0 5.0 - 9.0 06/27/2024 2:05 PM [facility] WBC ESTERASE Negative Negative 06/27/2024 2:05 PM [facility] NITRITE Negative Negative 06/27/2024 2:05 PM [facility] PROTEIN, RANDOM URINE 15 mg/dL(A) Negative 06/27/2024 2:05 PM [facility] URINE GLUCOSE, QUAL Negative Negative 06/27/2024 2:05 PM [facility] URINE KETONES Negative Negative 06/27/2024 2:05 PM [facility] UROBILINOGEN Normal Normal mg/dL 06/27/2024 2:05 PM [facility] URINE BLOOD 50 /uL(A) Negative scarlet/ul 06/27/2024 2:05 PM [facility] URINALYSIS COLOR Yellow 06/28/19 25 2:05 PM [facility] URINALYSIS CLARITY Slightly Cloudy 06/27/2024 2:05 PM [facility] WBC (Urine) 0-5 Negative, 0-5 /hpf 06/27/2024 2:05 PM [facility] URINE RBC'S 6-10(A) Negative, 0-2 /hpf 06/27/2024 2:05 PM [facility] EPITHELIAL CELLS Large amount squamous /lpf 06/27/2024 2:05 PM [facility] BACTERIA, URINE Many(A) Negative /hpf 06/27/2024 2:05 PM [facility] URINE MUCOUS Few 06/27/2024 2:05 PM [facility] Urine URINE SPECIMEN OBTAINED BY CLEAN CATCH PROCEDURE / Unknown Non-Phlebotomy Collection / Unknown 06/27/2024 11:50 AM [employer]IPPING SH[employer]EL OILER 06/27/2024 12:25 PM [employer]IPPING [employer]EL OILER us Alyssa Colorado AVIONICS SYSTEM ENGINEER, BLOOD BANK COORDINATOR URINE ORDERABLES Final R esult [facility] [address] [place] [address] * (ABNORMAL) CBC WITH AUTO DIFFERENTIAL (06/27/2024 11:50 AM STRIPPING SHOVEL OILER) WBC 10.39 4.00 - 12.00 10(3)/mcL 06/27/2024 12:39 PM [facility] RBC 4.43 3.80 - 5.30 10(6)/mcL 06/27/2024 12:39 PM [facility] HEMOGLOBIN (HGB) 13.5 12.0 - 15.8 g/dL 06/27/2024 12:39 PM [facility] HEMATOCRIT (HCT) 40.7 36.0 - 47.0 % 06/27/2024 12:39 PM [facility] MCV 91.9 82.0 - 96.0 fL 06/27/2024 12:39 PM [facility] MCH 30.5 26.0 - 34.0 pg 06/27/2024 12:39 PM [facility] MCHC 33.2 31.0 - 36.0 g/dL 06/27/2024 12:39 PM [facility] PLATELET COUNT 419 140 - 440 10(3)/mcL 06/27/2024 12:39 PM [facility] RDW 12.5 11.8 - 15.5 % 06/27/2024 12:39 PM [facility] MPV 10.2 9.7 - 12.4 fL 06/27/2024 12:39 PM [facility] NEUTROPHILS 77.8(H) 47.0 - 73.0 % 06/27/2024 12:39 PM [facility] LYMPHOCYTES 14.6(L) 18.0 - 42.0 % 06/27/2024 12:39 PM [facility] MONOCYTES 5.2 4.0 - 12.0 % 06/27/2024 12:39 PM [facility] EOSINOPHILS 2.1 0.0 - 5.0 % 06/27/2024 12:39 PM [facility] BASOPHILS 0.3 0.0 - 1.0 % 06/27/2024 12:39 PM [facility] ABSOLUTE NEUTROPHILS 8.08(H) 1.60 - 7.70 10(3)/[facility] 06/27/2024 12:39 PM [facility] ABSOLUTE LYMPHOCYTES 1.52 1.30 - 3.20 10(3)/[facility] 06/27/2024 12:39 PM [facility] ABSOLUTE MONOCYTES 0.54 0.20 - 1.00 10(3)/[facility] 06/27/2024 12:39 PM [facility] ABSOLUTE EOSINOPHIL 0.22 0.00 - 0.40 10(3)/[facility] 06/27/2024 12:39 PM [facility] ABSOLUTE BASOPHILS 0.03 0.00 - 0.10 10(3)/[facility] 06/27/2024 12:39 PM [facility] NRBC PER 100 WBC 0 06/28/19 12:39 PM [facility] Blood Venipuncture / Unknown 06/27/2024 11:50 AM [facility] 06/27/2024 12:28 PM [employer] OILER us Alyssa Colorado AVIONICS SYSTEM ENGINEER, BLOOD BANK COORDINATOR HEMATOLOGY ORDERABLES Fi nal Result [facility] [address] [place] [address] * UR TEST QUAL (06/27/2024 11:50 AM STRIPPING SHOVEL OILER) PREG TEST,MONOCLONA L Negative 06/27/2024 12:06 PM STRIPPING [employer]EL OILER [facility] Urine Non-Phlebotomy Collection / Unknown 06/27/2024 11:50 AM [employer]IP[employer]OV[employer] OILER 06/27/2024 12:00 PM [employer] OILER Alyssa Colorado APRN, BLOOD BANK COORDINATOR URINE ORDERABLES Final R esult [facility] [address] [place] [address] * LIPASE (06/27/2024 11:50 AM STRIPPING SHOVEL OILER) [facility] LIPASE 11 8 - 78 U/L 06/27/2024 1:21 PM STRIP[employer] OILER [facility] Blood Venipuncture / Unknown 06/27/2024 11:50 AM [employer]IP[employer] OILER 06/27/2024 12:25 PM [employer]ER Alyssa Colorado APRN, BLOOD BANK COORDINATOR CHEMISTRY ORDERABLES Fin al Result [facility] [address] [place] [address] * (ABNORMAL) CMP (COMPREHENSIVE METABOLIC PANEL) (06/27/2024 11:50 AM STRIPPING SHOVEL OILER) Pathologist [facility] SODIUM 139 136 - 145 mmol/L 06/27/2024 1:21 PM STRIP[employer] OILER [facility] POTASSIUM 4.4 3.5 - 5.1 mmol/L 06/27/2024 1:21 PM [employer]IP[employer] O[employer]ER [facility] CHLORIDE 108(H) 98 - 107 mmol/L 06/27/2024 1:21 PM [employer]IP[employer] OILER [facility] CO2, VENOUS 26 22 - 30 mmol/L 06/27/2024 1:21 PM [employer]IP[employer] OILER [facility] ANION GAP 9.4 <18.0 mmol/L 06/27/2024 1:21 PM [facility] GLUCOSE 91 70 - 99 mg/dL 06/27/2024 1:21 PM [facility] BUN 11 5 - 18 mg/dL 06/27/2024 1:21 PM [facility] CREATININE, BLOOD 0.83 0.60 - 1.00 mg/dL 06/27/2024 1:21 PM [facility] BUN/CREATININE RATIO 13 12 - 20 ratio 06/27/2024 1:21 PM [facility] TOTAL PROTEIN 7.4 6.0 - 8.0 g/dL 06/27/2024 1:21 PM [facility] ALBUMIN 3.9 3.5 - 5.0 g/dL 06/27/2024 1:21 PM [facility] A/G RATIO 1.1 1.0 - 2.2 06/27/2024 1:21 PM [facility] CALCIUM 8.8 8.7 - 10.5 mg/dL 06/27/2024 1:21 PM [facility] T BILI 0.3 0.2 - 1.2 mg/dL 06/27/2024 1:21 PM [facility] SGOT (AST) 23 <43 U/L 06/27/2024 1:21 PM [facility] SGPT (ALT) 15 <56 U/L 06/27/2024 1:21 PM [facility] ALKALINE PHOSPHATASE 75 40 - 150 U/L 06/27/2024 1:21 PM [facility] IS THE PATIENT REQUIRED TO BE FASTING? No 06/27/2024 1:21 PM [facility] GFR, ESTIMATED >60 >=60 06/27/2024 1:21 PM [facility] Comment: Creatinine Clearance is the preferred criteria for selecting drug dose adjustments in renally impaired patients. The GFR is provided as additional pertinent clinical information. GFR is reported in mL/min/1.73 sq m. Calculation based on the Chronic Kidney Disease Epidemiology Collaboration (CKD- EPI) equation refit without adjustment for race. GFR, EST. >60 >=60 025 1:21 PM STRIPPING SHOVEL OILER [facility] GFR, EST. NONAFRICAN >60 >=60 06/27/2024 1:21 PM STRIPPING SHOVEL OILER [facility] Blood Venipuncture / Unknown 06/27/2024 11:50 AM [employer]IP[employer]OVEL OILER 06/27/2024 12:25 PM [employer]IP[employer]EL OILER us Alyssa Colorado AVIONICS SYSTEM ENGINEER, BLOOD BANK COORDINATOR CHEMISTRY ORDERABLES Fin al Result [facility] [address] [place] [address] from Last 3 [place] [address] [email or web address] [facility] [employer] SOI Advance Directives * Full Code (Latest Code Status on File) Date Activated Date Inactivated Comments 12/16/2021 8:15 PM 12/18/2021 3:02 PM CPR-Full Gamal atment: FULL ARREST: Attempt Resuscitation/CPR wit intubation and mechanical ventilation. PRE-ARREST: Use entire range of life support measures to stabilize the patient. Care Teams Chair Car Attendant Relationship Specialty Start Date End Date David Kenney APRN, BLOOD BANK COORDINATOR [address] [address] PCP - General Advanced Practice Nurse 07/23/23 Phoenix Santos MD [address] [place] [address] Consulting Physician Gastroenterology 01/12/22
--- OUTSIDE RECORDS SUMMARY | 2024-09-10 15:20 | XMS_ITS | Clinical Summary ---
Author Organization [facility] Medical Office Building B Address [address] [place] [address] Care Team Providers Care Staffing Assistant Name Role Phone Jessica Zheng MD Primary [...] mouth, then spit out. Collaborating physician Rakesh Kogn MD 120 mL 1 11/29/19 Active Additional [...] 03/15/2022 Assessment & Plan (03/15/2022 2:49 PM UMBRELLA CUTTER): Will obtain records [facility] Urgent care, [facility] Urgent care by [facility] and Urgent care on [place], [facility]. Acute tonsillitis due to infectious mononucleosi s 02/03/2022 Nausea and vomiting 02/03/2022 Elevated LFTs 02/03/2022 Asthma 12/16/2021 Marijuana dependence 12/16/2021 Dental caries 11/30/2020 Assessment & Plan (11/30/2020 11:13 AM CDT): Continue Amoxicillin and steroids and Peridex after meals and before bedtime Have Dental evaluation Will obtain records from the [facility] regarding Tonsillar infections and consider proceeding with Tonsillectomy and Adenoidectomy based on their information Tonsillitis 11/28/2020 Assessment & Plan (11/30/2020 11:13 AM CDT): Continue Amoxicillin and steroids and Peridex after meals and before bedtime Have Dental evaluation Will obtain records from the [place] [facility] regarding Tonsillar infections and consider proceeding with Tonsillectomy and Adenoidectomy based on their information Appendicitis 02/27/2020 Assessment & Plan (03/16/2020 11:51 AM UMBRELLA CUTTER): Diet as tolerated. Okay to return to work with light duty. No heavy lifting greater than 20 lb for 4 weeks. No submerging incisions for 4 weeks. Please call for any further questions or concerns. Abscess of ear canal, right 06/12/2018 Assessment & Plan (06/20/2018 12:35 PM UMBRELLA CUTTER): Continue the antibiotic cream to right ear Follow up in 1 week for recheck Assessment & Plan (06/12/2018 2:56 PM UMBRELLA CUTTER): Avoid water to right ear Apply antibiotic ointment to the right ear canal 6 times daily Ear culture taken today Stop Keflex Start Levaquin, stop if muscle or tendon aches occur and call the office. Perineal pain 05/18/2016 Incomplete emptying of bladder 12/25/2013 Abnormal electrocardiogram 07/21/2009 Encounters Date Type Department Care Team Description 08/28/2024 Results Follow-Up [facility] at [address] [address] Woody Fofana NP Vaginitis panel Vaginal, Herpes Simplex Virus (HSV) PCR Vaginal, Urine culture Urine, clean voided 08/27/2024 10:58 PM CDT - 08/27/2024 11:59 PM CDT Hospital Encounter [address] [address] Labial pain; Burning with urination; Vaginal irritation Discharge Disposition: Discharge to home or self care 08/27/2024 4:45 PM CDT Office Visit [facility] at [address] [address] Woody Fofana NP Labial pain (Primary Dx); Burning with urination; Vaginal irritation 06/17/2024 6:00 PM UMBRELLA CUTTER Office Visit [facility] at [address] [address] Woody Fofana NP Localized infection of skin (Primary Dx) 06/14/2024 11:15 AM UMBRELLA CUTTER Office Visit [facility] at [address] [address] Cathleen Guzman PA Laceration of right index [...] on file Legal Sex Female 10:18 AM UMBRELLA CUTTER Gender Identity Not on file Sexual Orientation [...] Height 182.9 cm (6') 06/14/2024 10:47 AM UMBRELLA CUTTER Body Mass Index 39.6 06/14/2024 10:47 AM UMBRELLA CUTTER Plan of Treatment Health Maintenance Due Date Last Done Comments Cervical Cancer Screening 1999 Depression Screening 1999 Pneumococcal vaccine <65 (1 of 1 - PPSV23) 07/24/2005 10/26/2000, 07/26/2000, 03/27/2000 Regular Well Visit/Exam 18-64 07/24/2017 Covid-19 Vaccine (3 2023-2 5 season) 2023 08/14/2020, 07/24/2020 Influenza [...] Routine 08/27/2024 5:06 PM CDT Labial pain NE SIMPLE REPAIR SCALP/NECK/AX/GENIT/ TRUNK 2.5CM/< Routine 06/14/2024 11:08 AM UMBRELLA CUTTER Laceration of right index finger without foreign body without damage to nail, initial encounter HEPATITIS C ANTIBODY Routine 01/26/2021 7:28 AM CDT Encounter for donation of kidney from Last 3 Months or Most Recently Relevant to Health Maintenance Results * Herpes Simplex Virus (HSV) PCR Vaginal (08/27/2024 5:06 PM CDT) Pathologist [facility] HSV DNA Not Detected Not Detected [facility] Comment: Interpretive Data This assay is performed [...] last reviewed on 08/20/2018 Testing performed by: [facility], [address] [facility], [place]., [address] Vaginal 08/27/2024 5:06 PM CDT 08/28/2024 5:38 AM CDT Woody Fofana NP LAB MICROBIOLOGY - GENERAL ALISA GARCIA Final Result SANDY LANGLEY [address] [place] [place] [address] [facility] * Vaginitis panel Vaginal (08/27/2024 5:06 PM CDT) [facility] Bacterial Vaginosis Not Detected Not Detected Comment:A negative result do es not preclude a possible infection. Results should be considered in conjunction with clinical presentation to determine the disease status. Tram group Not Detected Not Detected [facility] Tram glabrata/ krusei Not Detected Not Detected [facility] Trichomonas DNA Not Detected Not Detected [facility] Vaginal 08/27/2024 5:06 PM CDT 08/28/2024 12:01 AM CDT Narrative [facility] - 08/28/2024 1:35 AM CDT The [employer] Xpert Xpress MVP test detects DNA targets [...] this test have been verified by the [facility]. Woody Fofana NP LAB MICROBIOLOGY - [facility] Final Result SANDY LANGLEY [address] [place] [address] * (ABNORMAL) POCT urinalysis dipstick (08/27/2024 5:06 PM CDT) Pathologist [facility] Color, Urine, POC Yellow Clarity, ur, POC Clear Clear Glucose, ur, POC Negative Negative Bilirubin, ur, POC Negative Negative Ketones, ur, POC Negative Negative Specific [place], POC 1.030 1.003 - 1.030 Blood, ur, POC Moderate(A) Negative pH, ur, POC 5.5 5.0 - 8.0 Protein, ur, POC 30.(A) Negative Urobilinogen, urine, POC 0.2 0.2 - 1.0 mg/dL Nitrite, ur, POC Negative Negative Leukocytes, ur, POC Negative Negative Lot Number [id number] Urine 08/27/2024 5:06 PM CDT Woody Fofana [...] allergic patients, please contact the laboratory at [phone] to request susceptibility testing * * * [...] periurethral dorothy. (.) Comment:Testing performed by : [facility], [address] [place]., [address] Organism (CLINICALLY INSIGNIFICANT GROWTH [facility] Organism STREPTOCOCCUS AGALACTIAE (GROUP B STREPTOCOCCI) [facility] Urine, clean voided 08/27/2024 5:06 PM CDT 08/28/2024 2:08 AM CDT Narrative [facility] - 08/29/2024 6:41 AM CDT Testing performed by [facility] Microbiology Laboratory ([phone]) Woody Fofana NP LAB MICROBIOLOGY - GENERAL ALISA GARCIA Final Result SANDY [address] [place] [address] * NE SIMPLE REPAIR SCALP/NECK/AX/GENIT/TRUNK 2.5CM/< (06/14/2024 11:08 AM UMBRELLA CUTTER) Narrative Cathleen Guzman PA - 06/14/2024 11:08 AM UMBRELLA CUTTER Cathleen Guzman PA 06/14/2024 11:29 AM Laceration [...] CDT) Hep C Ab Nonreactive Nonreactive [facility] Comment:Antibodies to HCV no t detected. Does NOT exclude the possibility of recent exposure to HCV. Blood 01/26/2021 7:28 AM CDT 01/26/2021 7:43 AM CDT Paul Sanders MD LAB MICROBIOLOGY - GENERAL ORDHermelinda GARCIA Edited Result - Final [facility] [address] [facility] [place] [address] from Last 3 Months or Most Recently Relevant to Health Maintenance Insurance [facility] ANTHEM ACCESS CHOICE [employer]ETNA [facility] Advance Directives For more information, please contact: [phone] * Full Code (Latest Code Status on File) Date Activated Date Inactivated Comments 02/27/2020 2:25 AM 02/28/2020 12:24 AM Care Teams Staffing Assistant Relationship Specialty Start Date End Date Jessica Zheng MD PCP - General Family Medicine 02/03/22
--- OUTSIDE RECORDS SUMMARY | 2024-09-10 15:20 | XMS_ITS | Clinical Summary ---
Author Organization [facility] [employer] Address [address] [place] [address] Care Team Providers Care Auto Finance Sales Rep Name Role Phone Ilene Morgan MD Primary Care Provider [phone] [facility] [employer],non-owned Affiliates and Associated Physician Practices is amultiple site organization consisting of ambulatory clinics and hospital sitesin [place], [place], [place] and [place]. This disclosure is being madepursuant to the Care Everywhere program and may not contain all information available regarding this patient. Last updated 18.[facility] [employer] Allergies No known active allergies Medications * [...] Comments Blood Pressure 122/80 06/21/2017 4:10 PM REGISTERED NURSE CARDIAC TELEMETRY Pulse 78 06/21/2017 4:09 PM REGISTERED NURSE CARDIAC TELEMETRY Temperature 36.8 C (98.3 F) 06/21/2017 4:09 PM REGISTERED NURSE CARDIAC TELEMETRY Respiratory Rate 16 06/21/2017 4:09 PM REGISTERED NURSE CARDIAC TELEMETRY Oxygen Saturation 99% 06/21/2017 4:09 PM REGISTERED NURSE CARDIAC TELEMETRY Inhaled Oxygen Concentration - - Weight 112.9 kg (249 lb) 06/21/2017 4:09 PM REGISTERED NURSE CARDIAC TELEMETRY Height 175.3 cm (5' 9 ) 06/21/2017 4:09 PM REGISTERED NURSE CARDIAC TELEMETRY Body Mass Index 36.77 06/21/2017 4:09 PM REGISTERED NURSE CARDIAC TELEMETRY Plan of Treatment Health Maintenance Due Date [...] to complete this topic Insurance AETNA [facility] Address: [address] [place] [id number] Care Teams Auto Finance Sales Rep Relationship Specialty Start Date End Date Ilene Morgan MD PCP - General Pediatrics 09/13/16
[2024-09-10 16:04] VITALS: BP 130/98; PULSE 83; RESP 20; TEMP 36.7; O2SAT 100
[2024-09-10 16:32] LABS: Basophils Percent Auto 0.3 % (0.2-1.2); Eosinophils Percent Auto 0.3 % (0-4.4); Hematocrit 45.1 % (37.0-47.0); Hemoglobin 14.6 g/dL (12.0-15.0); Immature Granulocyte Absolute 0.05 K/mm3 (0.00-0.031); Immature Granulocyte Percent A 0.4 % (0-0.5); Lymphocytes Percent Auto 9.6 % (18.3-44.2); Mean Corpuscular HGB Conc 32.4 g/dl (32-36); Mean Corpuscular Hemoglobin 29.1 pg (26-34); Mean Platelet Volume 10.2 fl (7.4-10.4); Monocytes Absolute Auto 0.6 K/mm3 (0.1-0.6); Monocytes Percent Auto 4.7 % (2.6-8.5); Neutrophils Absolute Auto 10.6 K/mm3 (1.3-6.7); Neutrophils Percent Auto 84.7 % (45.5-73.1); Platelet Count Result 402 k/mm3 (150-375); Red Blood Count 5.01 M/mm3 (4.2-5.4); Red Cell Distribution Width 13.1 % (11.5-14.5); White Blood Count 12.5 K/mm3 (4.5-10.0)
[2024-09-10 16:34] LABS: BEDSIDEPREGUCG Negative (Negative)
[2024-09-10 16:45] LABS: Acetaminophen < 10 ug/mL (10-30); Ethanol < 10 mg/dL (<10); Salicylate < 1.0 mg/dL (2-20)
[2024-09-10 16:46] LABS: Alanine Aminotransferase 33 U/L (6-35); Albumin Level 4.7 g/dL (3.5-5.1); Alkaline Phosphatase 97 U/L (38-126); Anion Gap 12 mmol/L (4-12); Aspartate Amino Transferase 52 U/L (14-36); Bilirubin,Total 0.5 mg/dL (0.2-1.3); Blood Urea Nitrogen 7 mg/dL (7-17); Calcium 9.9 mg/dL (8.4-10.2); Carbon Dioxide 19 mmol/L (22-30); Chloride 108 mmol/L (98-107); Estimated CRCL calculation 161 ml/min; Estimated Glomerular Filt Rate > 60; Glucose 108 mg/dL (65-110); Potassium 4.3 mmol/L (3.4-5.0); Sodium 139 mmol/L (137-145)
[2024-09-10 17:01] LABS: Add Urine Microscopic? YES; Appearance Urine Turbid (Clear); Bacteria Urine 4+ /hpf; Bilirubin Urine Negative (Negative); Blood Urine 1+ (Negative); Color Urine Yellow (Yellow); Glucose Urine UA Negative (Negative); Ketones Urine 1+ mg/dL (Negative); Leukocyte Esterase Ur Trace LEU/UL (Negative); Need Manual Microscopic Reviewed; Nitrate Urine Negative (Negative); Protein Urine Trace mg/dL (Negative); RBC Urine 21-50 /hpf (0-2); Specific Grav Ur 1.021 (1.001-1.035); Squamous Epithelial Cell Urine Many /hpf (Few)
--- OUTSIDE RECORDS SUMMARY | 2024-09-10 17:02 | XMS_ITS | Referral Summary ---
Author Organization [facility] Medical Office Building B Address [address] [place] [address] Care Team Providers Care Professor Of Pathology Name Role Phone Jessica Zheng MD Primary Care Provider Encounters Date Type Department Care Team Description 08/28/2024 Results Follow-Up [facility] Convenient Care at [address] [address] Woody Fofana NP Vaginitis panel Vaginal, Herpes Simplex Virus (HSV) PCR Vaginal, Urine culture Urine, clean voided 08/27/2024 10:58 PM CDT - 08/27/2024 11:59 PM CDT Hospital Encounter [address] [address] Labial pain; Burning with urination; Vaginal irritation Discharge Disposition: Discharge to home or self care 08/27/2024 4:45 PM CDT Office Visit [facility] at [address] [address] Woody Fofana NP Labial pain (Primary Dx); Burning with urination; Vaginal irritation 06/17/2024 6:00 PM EMPLOYEE WELLNESS/FITNESS COORDINATOR Office Visit [facility] at [address] [address] Woody Fofana NP Localized infection of skin (Primary Dx) 06/14/2024 11:15 AM EMPLOYEE WELLNESS/FITNESS COORDINATOR Office Visit [facility] at [address] [address] Cathleen Guzman PA Laceration of [...] 03/15/2022 Assessment & Plan (03/15/2022 2:49 PM EMPLOYEE WELLNESS/FITNESS COORDINATOR): Will obtain records [facility] Urgent care, [facility] Urgent care by [facility] and Urgent care on [place], [facility]. Acute tonsillitis due to infectious mononucleosi s 02/03/2022 Nausea and vomiting 02/03/2022 Elevated LFTs 02/03/2022 Asthma 12/16/2021 Marijuana dependence 12/16/2021 Dental caries 11/30/2020 Assessment & Plan (11/30/2020 11:13 AM CDT): Continue Amoxicillin and steroids and Peridex after meals and before bedtime Have Dental evaluation Will obtain records from the [facility] regarding Tonsillar infections and consider proceeding with Tonsillectomy and Adenoidectomy based on their information Tonsillitis 11/28/2020 Assessment & Plan (11/30/2020 11:13 AM CDT): Continue Amoxicillin and steroids and Peridex after meals and before bedtime Have Dental evaluation Will obtain records from the [facility] regarding Tonsillar infections and consider proceeding with Tonsillectomy and Adenoidectomy based on their information Appendicitis 02/27/2020 Assessment & Plan (03/16/2020 11:51 AM EMPLOYEE WELLNESS/FITNESS COORDINATOR): Diet as tolerated. Okay to return to work with light duty. No heavy lifting greater than 20 lb for 4 weeks. No submerging incisions for 4 weeks. Please call for any further questions or concerns. Abscess of ear canal, right 06/12/2018 Assessment & Plan (06/20/2018 12:35 PM EMPLOYEE WELLNESS/FITNESS COORDINATOR): Continue the antibiotic cream to right ear Follow up in 1 week for recheck Assessment & Plan (06/12/2018 2:56 PM EMPLOYEE WELLNESS/FITNESS COORDINATOR): Avoid water to right ear Apply antibiotic [...] on file Legal Sex Female 10:18 AM EMPLOYEE WELLNESS/FITNESS COORDINATOR Gender Identity Not on file Sexual Orientation [...] Height 182.9 cm (6') 06/14/2024 10:47 AM EMPLOYEE WELLNESS/FITNESS COORDINATOR Body Mass Index 39.6 06/14/2024 10:47 AM EMPLOYEE WELLNESS/FITNESS COORDINATOR Plan of Treatment Not on file Procedures Procedure Name Priority Date/Time Associated Diagnosis Comments POCT URINALYSIS DIPSTICK Routine 08/27/2024 5:06 PM CDT Burning with urination VAGINITIS PANEL Routine 08/27/2024 5:06 PM CDT Labial pain Vaginal irritation URINE CULTURE Routine 08/27/2024 5:06 PM CDT Burning with urination HERPES SIMPLEX VIRUS (HSV) PCR Routine 08/27/2024 5:06 PM CDT Labial pain GA SIMPLE REPAIR SCALP/NECK/AX/GENIT/ TRUNK 2.5CM/< Routine 06/14/2024 11:08 AM EMPLOYEE WELLNESS/FITNESS COORDINATOR Laceration of right index finger without foreign body without damage to nail, initial encounter HEPATITIS C ANTIBODY Routine 01/26/2021 7:28 AM CDT Encounter for donation of kidney from Last 3 Months or Most Recently Relevant to Health Maintenance Results * Herpes Simplex Virus (HSV) PCR Vaginal (08/27/2024 5:06 PM CDT) HSV DNA Not Detected Not Detected [facility] Comment: Interpretive Data This assay is [...] last reviewed on 08/20/2018 Testing performed by: [facility], [address] [facility] [place]., [address] Vaginal 08/27/2024 5:06 PM CDT 08/28/2024 5:38 AM CDT Woody Fofana NP LAB MICROBIOLOGY - [facility] Final Result Performing Organization Address [facility] Co de Phone Number SANDY LANGLEY [address] [address] [place] [address] [facility] * Vaginitis panel Vaginal (08/27/2024 5:06 PM CDT) Pathologist [facility] Bacterial Vaginosis Not Detected Not Detected Comment:A negative result do es not preclude a possible infection. Results should be considered in conjunction with clinical presentation to determine the disease status. Tram group Not Detected Not Detected [facility] Tram glabrata/ krusei Not Detected Not Detected [facility] Trichomonas DNA Not Detected Not Detected [facility] Vaginal 08/27/2024 5:06 PM CDT 08/28/2024 12:01 AM CDT Narrative [facility] - 08/28/2024 1:35 AM CDT The [employer] Xpert Xpress MVP test detects DNA targets [...] this test have been verified by the [facility]. Woody Fofana NP LAB MICROBIOLOGY - GENERAL VERONICAHermelinda RADHA Final Result Performing Organization Address [facility]/ZIP Co de Phone Number SANDY LANGLEY [address] [place] [address] [facility] * (ABNORMAL) POCT urinalysis dipstick (08/27/2024 5:06 PM CDT) Color, Urine, POC Yellow Clarity, ur, POC Clear Clear Glucose, ur, POC Negative Negative Bilirubin, ur, POC Negative Negative Ketones, ur, POC Negative Negative Specific [place], POC 1.030 1.003 - 1.030 Blood, ur, POC Moderate(A) Negative pH, ur, POC 5.5 5.0 - 8.0 Protein, ur, POC 30.(A) Negative Urobilinogen, urine, POC 0.2 0.2 - 1.0 mg/dL Nitrite, ur, POC Negative Negative Leukocytes, ur, POC Negative Negative Lot Number [id number] Urine 08/27/2024 5:06 PM CDT Woody Fofana [...] allergic patients, please contact the laboratory at [phone] to request susceptibility testing * * * [...] periurethral dorothy. (.) Comment:Testing performed by : [facility], [address] [facility], [place]., [address] Organism (CLINICALLY INSIGNIFICANT GROWTH [facility] Organism STREPTOCOCCUS AGALACTIAE (GROUP B STREPTOCOCCI) [facility] Urine, clean voided 08/27/2024 5:06 PM CDT 08/28/2024 2:08 AM CDT Narrative S[facility]Y - 08/29/2024 6:41 AM CDT Testing performed by [facility] Microbiology Laboratory ([phone]) Woody Fofana NP LAB MICROBIOLOGY - GENERAL ALISA GARCIA Final Result [facility] [address] [place] [address] * [place] SIMPLE REPAIR SCALP/NECK/AX/GENIT/TRUNK 2.5CM/< (06/14/2024 11:08 AM EMPLOYEE WELLNESS/FITNESS COORDINATOR) Narrative Cathleen Guzman PA - 06/14/2024 11:08 AM EMPLOYEE WELLNESS/FITNESS COORDINATOR Cathleen Guzman PA 06/14/2024 11:29 AM Laceration [...] ALISA GARCIA Edited Result - Final [facility] [place] [address] from Last 3 Months or Most Recently Relevant to Health Maintenance Insurance [facility] ANTHEM ACCESS CHOICE [facility] HMO/PPO Address: [address] [place] [address] [facility] Advance Directives For more information, please contact: [phone] * Full Code (Latest Code Status on File) Date Activated Date Inactivated Comments 02/27/2020 2:25 AM 02/28/2020 12:24 AM Care Teams Professor Of Pathology Relationship Specialty Start Date End Date Jessica Zheng MD PCP - General Family Medicine 02/03/22
--- OUTSIDE RECORDS SUMMARY | 2024-09-10 17:02 | XMS_ITS | Clinical Summary ---
Author Organization [facility] B Address [address] [place] [address] Care Team Providers Care Supervisor Calibration Name Role Phone Jessica Zheng MD Primary [...] 03/15/2022 Assessment & Plan (03/15/2022 2:49 PM MEDICAL SONOGRAPHER): Will obtain records [facility], [facility] by [place] and Urgent care on [place], [facility]. Acute tonsillitis due to infectious mononucleosi s 02/03/2022 Nausea and vomiting 02/03/2022 Elevated LFTs 02/03/2022 Asthma 12/16/2021 Marijuana dependence 12/16/2021 Dental caries 11/30/2020 Assessment & Plan (11/30/2020 11:13 AM CDT): Continue Amoxicillin and steroids and Peridex after meals and before bedtime Have Dental evaluation Will obtain records from the [facility] regarding Tonsillar infections and consider proceeding with Tonsillectomy and Adenoidectomy based on their information Tonsillitis 11/28/2020 Assessment & Plan (11/30/2020 11:13 AM CDT): Continue Amoxicillin and steroids and Peridex after meals and before bedtime Have Dental evaluation Will obtain records from the [facility] regarding Tonsillar infections and consider proceeding with Tonsillectomy and Adenoidectomy based on their information Appendicitis 02/27/2020 Assessment & Plan (03/16/2020 11:51 AM MEDICAL SONOGRAPHER): Diet as tolerated. Okay to return to work with light duty. No heavy lifting greater than 20 lb for 4 weeks. No submerging incisions for 4 weeks. Please call for any further questions or concerns. Abscess of ear canal, right 06/12/2018 Assessment & Plan (06/20/2018 12:35 PM MEDICAL SONOGRAPHER): Continue the antibiotic cream to right ear Follow up in 1 week for recheck Assessment & Plan (06/12/2018 2:56 PM MEDICAL SONOGRAPHER): Avoid water to right ear Apply antibiotic ointment to the right ear canal 6 times daily Ear culture taken today Stop Keflex Start Levaquin, stop if muscle or tendon aches occur and call the office. Perineal pain 05/18/2016 Incomplete emptying of bladder 12/25/2013 Abnormal electrocardiogram 07/21/2009 Encounters Date Type Department Care Team Description 08/28/2024 Results Follow-Up [facility] [address] [address] Woody Fofana NP Vaginitis panel Vaginal, Herpes Simplex Virus (HSV) PCR Vaginal, Urine culture Urine, clean voided 08/27/2024 10:58 PM CDT - 08/27/2024 11:59 PM CDT Hospital Encounter [address] [address] Labial pain; Burning with urination; Vaginal irritation Discharge Disposition: Discharge to home or self care 08/27/2024 4:45 PM CDT Office Visit [facility] [address] [address] Woody Fofana NP Labial pain (Primary Dx); Burning with urination; Vaginal irritation 06/17/2024 6:00 PM MEDICAL SONOGRAPHER Office Visit [facility] [address] [address] Woody Fofana NP Localized infection of skin (Primary Dx) 06/14/2024 11:15 AM MEDICAL SONOGRAPHER Office Visit [facility] [address] [address] Cathleen Guzman PA Laceration of right index [...] on file Legal Sex Female 10:18 AM MEDICAL SONOGRAPHER Gender Identity Not on file Sexual Orientation [...] Height 182.9 cm (6') 06/14/2024 10:47 AM MEDICAL SONOGRAPHER Body Mass Index 39.6 06/14/2024 10:47 AM MEDICAL SONOGRAPHER Plan of Treatment Health Maintenance Due Date [...] Routine 08/27/2024 5:06 PM CDT Labial pain TX SIMPLE REPAIR SCALP/NECK/AX/GENIT/ TRUNK 2.5CM/< Routine 06/14/2024 11:08 AM MEDICAL SONOGRAPHER Laceration of right index finger without foreign body without damage to nail, initial encounter HEPATITIS C ANTIBODY Routine 01/26/2021 7:28 AM CDT Encounter for donation of kidney from Last 3 Months or Most Recently Relevant to Health Maintenance Results * Herpes Simplex Virus (HSV) PCR Vaginal (08/27/2024 5:06 PM CDT) Pathologist [facility] HSV DNA Not Detected Not Detected [facility] Comment: Interpretive Data This assay [...] last reviewed on 08/20/2018 Testing performed by: [facility], [address] [facility], [place]., [address] Vaginal 08/27/2024 5:06 PM CDT 08/28/2024 5:38 AM CDT Woody Fofana NP LAB MICROBIOLOGY - GENERAL ALISA GARCIA Final Result SANDY [address] [place] [address] [facility] * Vaginitis panel Vaginal (08/27/2024 5:06 PM CDT) [facility] Bacterial Vaginosis Not Detected Not Detected Comment:A negative result do es not preclude a possible infection. Results should be considered in conjunction with clinical presentation to determine the disease status. Tram group Not Detected Not Detected [facility] Tram glabrata/ krusei Not Detected Not Detected [facility] Trichomonas DNA Not Detected Not Detected [facility] Vaginal 08/27/2024 5:06 PM CDT 08/28/2024 12:01 AM CDT Narrative [facility] - 08/28/2024 1:35 AM CDT The [employer] Xpert Xpress MVP test detects DNA targets [...] this test have been verified by the [facility]. Woody Fofana NP LAB MICROBIOLOGY - [facility] AL[facility] Final Result [facility] [address] [place] [address] * (ABNORMAL) POCT urinalysis dipstick (08/27/2024 5:06 PM CDT) Pathologist [facility] Color, Urine, POC Yellow Clarity, ur, POC Clear Clear Glucose, ur, POC Negative Negative Bilirubin, ur, POC Negative Negative Ketones, ur, POC Negative Negative Specific [place], POC 1.030 1.003 - 1.030 Blood, ur, POC Moderate(A) Negative pH, ur, POC 5.5 5.0 - 8.0 Protein, ur, POC 30.(A) Negative Urobilinogen, urine, POC 0.2 0.2 - 1.0 mg/dL Nitrite, ur, POC Negative Negative Leukocytes, ur, POC Negative Negative Lot Number [id number] Urine 08/27/2024 5:06 PM CDT Woody Fofana [...] allergic patients, please contact the laboratory at [phone] to request susceptibility testing * * * [...] periurethral dorothy. (.) Comment:Testing performed by : [facility], [address] [place]., [address] Organism (CLINICALLY INSIGNIFICANT GROWTH [facility] Organism STREPTOCOCCUS AGALACTIAE (GROUP B STREPTOCOCCI) SANDY Urine, clean voided 08/27/2024 5:06 PM CDT 08/28/2024 2:08 AM CDT Narrative SANDY - 08/29/2024 6:41 AM CDT Testing performed by [facility] Microbiology Laboratory ([phone]) Woody Fofana NP LAB MICROBIOLOGY - GENERAL ALISA GARCIA Final Result SANDY [address] Department [place] [address] * [place] SIMPLE REPAIR SCALP/NECK/AX/GENIT/TRUNK 2.5CM/< (06/14/2024 11:08 AM MEDICAL SONOGRAPHER) Narrative Cathleen Guzman PA - 06/14/2024 11:08 AM MEDICAL SONOGRAPHER Cathleen Guzman PA 06/14/2024 11:29 AM Laceration [...] GENERAL ORDHermelinda GARCIA Edited Result - Final [facility] Department [place] [address] from Last 3 Months or Most Recently Relevant to Health Maintenance Insurance [facility] ANTHEM ACCESS CHOICE AETNA [facility] Advance Directives For more information, please contact: [phone] * Full Code (Latest Code Status on File) Date Activated Date Inactivated Comments 02/27/2020 2:25 AM 02/28/2020 12:24 AM Care Teams Supervisor Calibration Relationship Specialty Start Date End Date Jessica Zheng MD PCP - General Family Medicine 02/03/22
--- OUTSIDE RECORDS SUMMARY | 2024-09-10 17:02 | XMS_ITS | Clinical Summary ---
Author Organization [facility] Address [address] [place] [address] Phone Care Team Providers Care Exchange Consultant Name Role Phone Phoenix Santos MD Unavailable [phone] David Kenney APRN, PASTER OPERATOR Primary Care Pr ovider Allergies Active Allergy [...] Department Care Team Description 09/02/2024 Results Follow-Up [facility] [address] [place] [address] David Kenney APRN, CNP XR KNEE 3 VIEWS BILATERAL 08/28/2024 5:02 PM CDT - 08/28/2024 11:59 PM CDT Hospital Encounter [facility] Diagnostic Radiology [address] [place] [address] David Kenney APRN, CNP Discharge Disposition: Discharged to home or Selfcare 08/28/2024 4:30 PM CDT Office Visit [facility] [address] [place] [address] David Kenney APRN, CNP Chronic pain of both lower extremities (Primary Dx) Discharge Disposition: Discharged to home or Selfcare 08/28/2024 Travel 06/27/2024 10:45 AM ACADEMIC ADVISER Office Visit [facility] [address] [place] [address] Alyssa Colorado APRN, CNP Viral gastroenteritis (Primary Dx) Discharge Disposition: Discharged to home or Selfcare 06/27/2024 Results Follow-Up [facility] Obstetrics & Gynecology [facility] [address] [place] [address] Alyssa Colorado APRN, PERICO CMP (COMPREHENSIVE METABOLIC [...] 10/26/2000, 07/26/2000,03/27/2000 Pneumococcal conjugate PCV20 , polysaccharide [id number] conjugate, adjuvant, PF 08/29/2023 TDAP Vaccine 10/22/2021,03/26/2020,08/19/2009 Varicella Vaccine Live 10/18/2010,07/26/2000 Family History * Patient is adopted Relation Name Status Comments Mother Alive Social History Tobacco Use Types Packs/Day Years Used Date Smoking Tobacco: Never Smokeless Tobacco: Never Tobacco Cessation:Counseling Given: Not Answered Alcohol Use Standard Drinks/Week Comments Yes 0 (1 standard drink = 0.6 oz pur e alcohol) socially [employer] Util[employer] Answer Date Recorded In the past 12 months has [employer], gas, oil, or water [employer] threatened to shut off services in your home? No 05/23/2024 Social Connection and Isolat ion Panel [NHANES] Answer Date Recorded In a typical week, how many times do you talk on the phone with family, friends, or neighbors? More than three times a week 05/23/2024 How often do you get togethe r with friends or relatives? Never 05/23/2024 How often do you attend [facility] or methodist services? Never 05/23/2024 Do you belong to any clubs o r organizations such as pentecostal groups, unions, fraternal or athletic groups, or [...] Total Score - Questions 1-9 0 04/25 [facility] - Occupational [...] any time in the past 12 m [facility], were you homeless or living in a group home (including now)? No 05/23/2024 Sexually Active Control [...] Height 182.9 cm (6') 06/27/2024 10:58 AM ACADEMIC ADVISER Body Mass Index 39.32 06/27/2024 10:58 AM ACADEMIC ADVISER Plan of Treatment Upcoming Encounters Date Type Department Care Team (Late st Contact Info) Description 09/25/2024 4:30 PM CDT Office Visit [facility] - Family Medicine [facility] [address] [place] [address] David Kenney APRN, PASTER OPERATOR [address] [address] 09/29/2024 3:30 PM CDT [facility] [address] [place] [address] David Kenney APRN, PASTER OPERATOR [address] [place] [id number] Discharge Disposition: Discharged to home or Selfcare [...] WITH AUTO DIFFERENTIAL Routine 06/27/2024 11:50 AM ACADEMIC ADVISER Viral gastroenteritis LIPASE Routine 06/27/2024 11:50 AM ACADEMIC ADVISER Viral gastroenteritis UR TEST QUAL Routine 06/27/2024 11:50 AM ACADEMIC ADVISER Viral gastroenteritis URINALYSIS REFLEX IF INDICATED BY ABNORMAL RESULTS Routine 06/27/2024 11:50 AM ACADEMIC ADVISER Viral gastroenteritis CMP (COMPREHENSIVE METABOLIC PANEL) Routine 06/27/2024 11:50 AM ACADEMIC ADVISER Viral gastroenteritis COMPLETE BLOOD COUNT (CBC) WITH DIFF Routine 06/27/2024 11:50 AM ACADEMIC ADVISER Viral gastroenteritis from Last 3 Months Results [...] 09/02/2024 6:37 AM - Electronically signed by [facility]mo[facility] Darnell M.D. RB: RB Report ID: [id number] Reading Location: [id number] Procedure Note Dominic Darnell MD - 09/02/2024 [...] Dominic Darnell M.D. RB: RB Report ID: [id number] Reading Location: [id number] IMPRESSION: Minimal degenerative changes bilateral knees. David Kenney APRN, PERICO IMG DIAGNOSTIC O RDERABLES Final Result * (ABNORMAL) URINALYSIS REFLEX IF INDICATED BY ABNORMAL RESULTS (06/27/2024 11:50 AM ACADEMIC ADVISER) SPECIFIC GRAVITY 1.020 1.003 - 1.030 06/27/2024 2:05 PM [facility] URINE PH 6.0 5.0 - 9.0 06/27/2024 2:05 PM [facility] WBC ESTERASE Negative Negative 06/27/2024 2:05 PM [facility] NITRITE Negative Negative 06/27/2024 2:05 PM [facility] PROTEIN, RANDOM URINE 15 mg/dL(A) Negative 06/27/2024 2:05 PM [facility] URINE GLUCOSE, QUAL Negative Negative 06/27/2024 2:05 PM [facility] URINE KETONES Negative Negative 06/27/2024 2:05 PM [facility] UROBILINOGEN Normal Normal mg/dL 06/27/2024 2:05 PM [facility] URINE BLOOD 50 /uL(A) Negative scarlet/ul 06/27/2024 2:05 PM [facility] URINALYSIS COLOR Yellow 06/28/19 25 2:05 PM [facility] URINALYSIS CLARITY Slightly Cloudy 06/27/2024 2:05 PM [facility] WBC (Urine) 0-5 Negative, 0-5 /hpf 06/27/2024 2:05 PM [facility] URINE RBC'S 6-10(A) Negative, 0-2 /hpf 06/27/2024 2:05 PM [facility] EPITHELIAL CELLS Large amount squamous /lpf 06/27/2024 2:05 PM [facility] BACTERIA, URINE Many(A) Negative /hpf 06/27/2024 2:05 PM [facility] URINE MUCOUS Few 06/27/2024 2:05 PM [facility] Urine URINE SPECIMEN OBTAINED BY CLEAN CATCH PROCEDURE / Unknown Non-Phlebotomy Collection / Unknown 06/27/2024 11:50 AM ACADEMIC ADVISER 06/27/2024 12:25 PM ACADEMIC ADVISER us Alyssa Colorado PERCOLATOR OPERATOR, PASTER OPERATOR URINE ORDERABLES Final R esult [facility] [address] [place] [address] * (ABNORMAL) CBC WITH AUTO DIFFERENTIAL (06/27/2024 11:50 AM ACADEMIC ADVISER) WBC 10.39 4.00 - 12.00 10(3)/mcL 06/27/2024 12:39 PM [facility] RBC 4.43 3.80 - 5.30 10(6)/mcL 06/27/2024 12:39 PM [facility] HEMOGLOBIN (HGB) 13.5 12.0 - 15.8 g/dL 06/27/2024 12:39 PM [facility] HEMATOCRIT (HCT) 40.7 36.0 - 47.0 % 06/27/2024 12:39 PM [facility] MCV 91.9 82.0 - 96.0 fL 06/27/2024 12:39 PM [facility] MCH 30.5 26.0 - 34.0 pg 06/27/2024 12:39 PM [facility] MCHC 33.2 31.0 - 36.0 g/dL 06/27/2024 12:39 PM [facility] PLATELET COUNT 419 140 - 440 10(3)/mcL 06/27/2024 12:39 PM [facility] RDW 12.5 11.8 - 15.5 % 06/27/2024 12:39 PM [facility] MPV 10.2 9.7 - 12.4 fL 06/27/2024 12:39 PM [facility] NEUTROPHILS 77.8(H) 47.0 - 73.0 % 06/27/2024 12:39 PM [facility] LYMPHOCYTES 14.6(L) 18.0 - 42.0 % 06/27/2024 12:39 PM [facility] MONOCYTES 5.2 4.0 - 12.0 % 06/27/2024 12:39 PM [facility] EOSINOPHILS 2.1 0.0 - 5.0 % 06/27/2024 12:39 PM [facility] BASOPHILS 0.3 0.0 - 1.0 % 06/27/2024 12:39 PM [facility] ABSOLUTE NEUTROPHILS 8.08(H) 1.60 - 7.70 10(3)/[facility] 06/27/2024 12:39 PM [facility] ABSOLUTE LYMPHOCYTES 1.52 1.30 - 3.20 10(3)/[facility] 06/27/2024 12:39 PM [facility] ABSOLUTE MONOCYTES 0.54 0.20 - 1.00 10(3)/[facility] 06/27/2024 12:39 PM [facility] ABSOLUTE EOSINOPHIL 0.22 0.00 - 0.40 10(3)/[facility] 06/27/2024 12:39 PM [facility] ABSOLUTE BASOPHILS 0.03 0.00 - 0.10 10(3)/[facility] 06/27/2024 12:39 PM [facility] NRBC PER 100 WBC 0 06/28/19 12:39 PM [facility] Blood Venipuncture / Unknown 06/27/2024 11:50 AM [facility] 06/27/2024 12:28 PM ACADEMIC ADVISER us Alyssa Colorado PERCOLATOR OPERATOR, PASTER OPERATOR HEMATOLOGY ORDERABLES Fi nal Result [facility] [address] [place] [address] * UR TEST QUAL (06/27/2024 11:50 AM ACADEMIC ADVISER) PREG TEST,MONOCLONA L Negative 06/27/2024 12:06 PM ACADEMIC ADVISER [facility] Urine Non-Phlebotomy Collection / Unknown 06/27/2024 11:50 AM ACADEMIC ADVISER 06/27/2024 12:00 PM ACADEMIC ADVISER Alyssa Colorado APRN, PASTER OPERATOR URINE ORDERABLES Final R esult [facility] [address] [place] [address] * LIPASE (06/27/2024 11:50 AM ACADEMIC ADVISER) [facility] LIPASE 11 8 - 78 U/L 06/27/2024 1:21 PM ACADEMIC ADVISER [facility] Blood Venipuncture / Unknown 06/27/2024 11:50 AM ACADEMIC ADVISER 06/27/2024 12:25 PM ACADEMIC ADVISER Alyssa Colorado APRN, PASTER OPERATOR CHEMISTRY ORDERABLES Fin al Result [facility] [address] [place] [address] * (ABNORMAL) CMP (COMPREHENSIVE METABOLIC PANEL) (06/27/2024 11:50 AM ACADEMIC ADVISER) Pathologist [facility] SODIUM 139 136 - 145 mmol/L 06/27/2024 1:21 PM ACADEMIC ADVISER [facility] POTASSIUM 4.4 3.5 - 5.1 mmol/L 06/27/2024 1:21 PM ACADEMIC ADVISER [facility] CHLORIDE 108(H) 98 - 107 mmol/L 06/27/2024 1:21 PM ACADEMIC ADVISER [facility] CO2, VENOUS 26 22 - 30 mmol/L 06/27/2024 1:21 PM ACADEMIC ADVISER [facility] ANION GAP 9.4 <18.0 mmol/L 06/27/2024 1:21 PM [facility] GLUCOSE 91 70 - 99 mg/dL 06/27/2024 1:21 PM [facility] BUN 11 5 - 18 mg/dL 06/27/2024 1:21 PM [facility] CREATININE, BLOOD 0.83 0.60 - 1.00 mg/dL 06/27/2024 1:21 PM [facility] BUN/CREATININE RATIO 13 12 - 20 ratio 06/27/2024 1:21 PM [facility] TOTAL PROTEIN 7.4 6.0 - 8.0 g/dL 06/27/2024 1:21 PM [facility] ALBUMIN 3.9 3.5 - 5.0 g/dL 06/27/2024 1:21 PM [facility] A/G RATIO 1.1 1.0 - 2.2 06/27/2024 1:21 PM [facility] CALCIUM 8.8 8.7 - 10.5 mg/dL 06/27/2024 1:21 PM [facility] T BILI 0.3 0.2 - 1.2 mg/dL 06/27/2024 1:21 PM [facility] SGOT (AST) 23 <43 U/L 06/27/2024 1:21 PM [facility] SGPT (ALT) 15 <56 U/L 06/27/2024 1:21 PM [facility] ALKALINE PHOSPHATASE 75 40 - 150 U/L 06/27/2024 1:21 PM [facility] IS THE PATIENT REQUIRED TO BE FASTING? No 06/27/2024 1:21 PM [facility] GFR, ESTIMATED >60 >=60 06/27/2024 1:21 PM [facility] Comment: Creatinine Clearance is the preferred criteria for selecting drug dose adjustments in renally impaired patients. The GFR is provided as additional pertinent clinical information. GFR is reported in mL/min/1.73 sq m. Calculation based on the Chronic Kidney Disease Epidemiology Collaboration (CKD- EPI) equation refit without adjustment for race. GFR, EST. >60 >=60 025 1:21 PM ACADEMIC ADVISER [facility] GFR, EST. NONAFRICAN >60 >=60 06/27/2024 1:21 PM ACADEMIC ADVISER [facility] Blood Venipuncture / Unknown 06/27/2024 11:50 AM ACADEMIC ADVISER 06/27/2024 12:25 PM ACADEMIC ADVISER us Alyssa Colorado PERCOLATOR OPERATOR, PASTER OPERATOR CHEMISTRY ORDERABLES Fin al Result [facility] [address] [place] [address] from Last [address] [place] [address] [employer] [facility] [employer]ET[employer] Advance Directives * Full Code (Latest Code Status on File) Date Activated Date Inactivated Comments 12/16/2021 8:15 PM 12/18/2021 3:02 PM CPR-Full Gamal atment: FULL ARREST: Attempt Resuscitation/CPR wit intubation and mechanical ventilation. PRE-ARREST: Use entire range of life support measures to stabilize the patient. Care Teams Exchange Consultant Relationship Specialty Start Date End Date David Kenney APRN, PASTER OPERATOR [address] [address] PCP - General Advanced Practice Nurse 07/23/23 Phoenix Santos MD [address] [place] [address] Consulting Physician Gastroenterology 01/12/22
--- OUTSIDE RECORDS SUMMARY | 2024-09-10 17:02 | XMS_ITS | Clinical Summary ---
Author Organization [facility] Address [address] [facility] [place] [address] Care Team Providers Care Gold Miner Blasting Name Role Phone Ilene Morgan MD Primary Care Provider Source Comments [facility],non-owned Affiliates and Associated Physician Practices is amultiple site organization consisting of ambulatory clinics and hospital sitesin [place], [place], [place] and [place]. This disclosure is being madepursuant to the Care Everywhere program and may not contain all information available regarding this patient. Last updated 18.[facility] Allergies No known active allergies Medications * [...] Comments Blood Pressure 122/80 06/21/2017 4:10 PM DATA PROCESSING SYSTEMS CONSULTANT Pulse 78 06/21/2017 4:09 PM DATA PROCESSING SYSTEMS CONSULTANT Temperature 36.8 C (98.3 F) 06/21/2017 4:09 PM DATA PROCESSING SYSTEMS CONSULTANT Respiratory Rate 16 06/21/2017 4:09 PM DATA PROCESSING SYSTEMS CONSULTANT Oxygen Saturation 99% 06/21/2017 4:09 PM DATA PROCESSING SYSTEMS CONSULTANT Inhaled Oxygen Concentration - - Weight 112.9 kg (249 lb) 06/21/2017 4:09 PM DATA PROCESSING SYSTEMS CONSULTANT Height 175.3 cm (5' 9 ) 06/21/2017 4:09 PM DATA PROCESSING SYSTEMS CONSULTANT Body Mass Index 36.77 06/21/2017 4:09 PM DATA PROCESSING SYSTEMS CONSULTANT Plan of Treatment Health Maintenance Due Date [...] to complete this topic Insurance AETNA [employer] Care Teams Gold Miner Blasting Relationship Specialty Start Date End Date Ilene Morgan MD PCP - General Pediatrics 09/13/16
--- OUTSIDE RECORDS SUMMARY | 2024-09-10 17:02 | XMS_ITS | Encounter Summary ---
Author Organization [facility] Address [address] [place] [address] Care Team Providers Care Mud Analysis Well Logging Operator Name Role Phone Jessica Zheng MD Primary Care Provider Encounter Details Date Type Department Care Team (Late st Contact Info) Description 08/28/2024 Results Follow-Up [facility] Convenient Care at [address] [address] Woody Fofana NP [address] [place] [address] [address] [place] [address] Vaginitis panel Vaginal, Herpes Simplex [...] on file Legal Sex Female 10:18 AM DESIGN RELEASE ENGINEER Gender Identity Not on file Sexual Orientation [...] on filedocumented in this encounter Care Teams Mud Analysis Well Logging Operator Relationship Specialty Start Date End Date Jessica Zheng MD PCP - General Family Medicine 02/03/22 documented as of this encounter
[2024-09-10 17:13] LABS: Amphetamine Screen Urine Negative (Negative); Barbiturate Screen Urine Negative (Negative); Benzodiazepines Screen Urine Negative (Negative); Cannabinoid Screen Urine Positive (Negative); Cocaine Screen Urine Negative (Negative); Methadone Screen Urine Negative (Negative); Opiate Screen Urine Negative (Negative); Phencyclidine Screen Urine Negative (Negative); SARS-CoV-2 RNA PCR Negative (Negative)
[2024-09-10 17:17] LABS: Thyroid Stimulating Hormone 0.249 uIU/mL (0.465-4.680)
[2024-09-10] MEDS: ONDANSETRON HCL ODT 4 MG TABLET PO (17:22)
[2024-09-10] MEDS: LORazepam (*CRX) 0.5 MG TABLET PO (17:22)
--- NOTE | 2024-09-10 17:52 | ED.GENADULT ---
HPI - General Adult General Chief complaint: Psychiatric Symptoms <Morteza Pelayo MD - Last Filed: 09/10/24 18:59> Stated complaint: WITHDRAWAL SYMPTOMS FROM DRUG <Morteza Pelayo MD - Last Filed: 09/10/24 18:59> Time Seen by Provider: 09/10/24 16:25 <Morteza Pelayo MD - Last Filed: 09/10/24 18:59> History of Present Illness HPI narrative: Patient is a 24-year-old female who presents ER with concerns for withdrawal. She uses high doses of kratom and quit 3 days ago. It is make her feel anxious and upset. She feels like her skin is burning. She reported to triage that she had plans to jump off a bridge. She repeats this to me but states that she cannot actually kill herself she does have some thoughts of how she would. Has longstanding history of depression. Has not been hospitalized. She does not take any medications to control her depression. Occasional nausea. <Morteza Pelayo MD - Last Filed: 09/10/24 18:59> Related Data Home medications: Home Medications ?Medication ?Instructions ?Recorded ?Confirmed ?Last Taken ?Type etonogestrel 68 mg subdermal 1 implant subdermal ONCE 12/18/20 05/30/24 Unknown History implant (Nexplanon) <Morteza Pelayo MD - Last Filed: 09/10/24 18:59> Allergies/adverse reactions: Allergies Allergy/AdvReac Type Severity Reaction Status Date / Time cranberry Allergy Swelling Verified 09/10/24 15:17 <Morteza Pelayo MD - Last Filed: 09/10/24 18:59> Review of Systems Review of Systems: All systems reviewed & are unremarkable except as noted in HPI and below <Morteza Pelayo MD - Last Filed: 09/10/24 18:59> Constitutional: Constitutional: Reports no additional constitutional complaints <Morteza Pelayo MD - Last Filed: 09/10/24 18:59> ENT: Reports system reviewed and no additional complaints, except as documented <Morteza Pelayo MD - Last Filed: 09/10/24 18:59> Cardiovascular: Cardiovascular: Reports no additional cardiovascular complaints <Morteza Pelayo MD - Last Filed: 09/10/24 18:59> Respiratory: Respiratory: Reports no additional respiratory complaints <Morteza Pelayo MD - Last Filed: 09/10/24 18:59> Gastrointestinal: Gastrointestinal: Reports no additional gastrointestinal complaints <Morteza Pelayo MD - Last Filed: 09/10/24 18:59> Musculoskeletal: Musculoskeletal: Reports no additional musculoskeletal complaints <Morteza Pelayo MD - Last Filed: 09/10/24 18:59> PMFSH Past Medical History Medical History: Medical History UTI (urinary tract infection) ADD (attention deficit disorder) Previous known suicide attempt Anxiety Depression Bipolar disorder Migraines Spastic bladder Asthma <Morteza Pelayo MD - Last Filed: 09/10/24 18:59> Surgical History Surgical History: Surgical History No history of previous surgery History of tonsillectomy 10/14 Hx of appendectomy <Morteza Pelayo MD - Last Filed: 09/10/24 18:59> Family History Family History: Family History Unknown Adopted <Morteza Pelayo MD - Last Filed: 09/10/24 18:59> Social History Social History: Social History Smoking status: Current every day smoker Tobacco type: e-cigarettes/vaping Second hand tobacco smoke exposure: No Alcohol intake: current Substance use: current Substance use type: marijuana Living arrangements: with family Occupation/Education: student Gender identity (if verbalized by the patient): Female <Morteza Pelayo MD - Last Filed: 09/10/24 18:59> Exam Narrative: GENERAL: Well-appearing, well-nourished, and in no acute distress. HEAD: Normocephalic, atraumatic. EYES: PERRL and EOMI. ENT: Mucous membranes moist. NECK: Supple. CHEST: Clear to auscultation. No respiratory distress. HEART: Regular rate and rhythm. Normal peripheral pulses. ABDOMEN: Soft, nontender, nondistended, normal active bowel sounds. EXTREMITIES: Normal range of motion. No edema. SKIN: Warm, dry, no rash. NEURO: No focal deficits. Alert and oriented x3. PSYCH: Normal mood and affect. <Morteza Pelayo MD - Last Filed: 09/10/24 18:59> Course Course Emergency Course: Patient medically stable for inpatient hospitalization if required. Crisis here to evaluate. Care transferred to Dr. Meza. <Morteza Pelayo MD - Last Filed: 09/10/24 18:59> Reevaluation(s) Reevaluation #1: 24-year-old female presenting to emergency department for psychiatric evaluation and withdraw from [facility]. Patient was found have urinary tract infection. Patient will be started on Keflex as outpatient. Patient will be provided Zofran as outpatient. Patient was evaluated crisis and patient did sign a safety agreement. Patient will be discharged home and have outpatient follow-up. All questions and concerns were addressed. <Avinash Meza MD - Last Filed: 09/11/24 07:58> Vital Signs Vital signs: Vital Signs Temperature 98.0 F 09/10/24 16:04 Pulse Rate 83 09/10/24 16:04 Respiratory Rate 20 09/10/24 16:04 Blood Pressure 130/98 H 09/10/24 16:04 Pulse Oximetry 100 09/10/24 16:04 Oxygen Delivery Room Air 09/10/24 16:04 Temperature 98.0 F 09/10/24 16:04 Pulse Rate 83 09/10/24 20:10 Respiratory Rate 18 09/10/24 20:10 Blood Pressure 133/79 09/10/24 20:10 Pulse Oximetry 100 09/10/24 20:10 Oxygen Delivery Room Air 09/10/24 16:04 <Morteza Pelayo MD - Last Filed: 09/10/24 18:59> Vital Signs Temperature 98.0 F 09/10/24 16:04 Pulse Rate 83 09/10/24 16:04 Respiratory Rate 20 09/10/24 16:04 Blood Pressure 130/98 H 09/10/24 16:04 Pulse Oximetry 100 09/10/24 16:04 Oxygen Delivery Room Air 09/10/24 16:04 Temperature 98.0 F 09/10/24 16:04 Pulse Rate 83 09/10/24 20:10 Respiratory Rate 18 09/10/24 20:10 Blood Pressure 133/79 09/10/24 20:10 Pulse Oximetry 100 09/10/24 20:10 Oxygen Delivery Room Air 09/10/24 16:04 <Avinash Meza MD - Last Filed: 09/11/24 07:58> Medical Decision Making Vital Signs Vital Signs: Vital Signs Temperature 98.0 F 09/10/24 16:04 Pulse Rate 83 09/10/24 16:04 Respiratory Rate 20 09/10/24 16:04 Blood Pressure 130/98 H 09/10/24 16:04 Pulse Oximetry 100 09/10/24 16:04 Oxygen Delivery Room Air 09/10/24 16:04 Temperature 98.0 F 09/10/24 16:04 Pulse Rate 83 09/10/24 20:10 Respiratory Rate 18 09/10/24 20:10 Blood Pressure 133/79 09/10/24 20:10 Pulse Oximetry 100 09/10/24 20:10 Oxygen Delivery Room Air 09/10/24 16:04 <Morteza Pelayo MD - Last Filed: 09/10/24 18:59> Vital Signs Temperature 98.0 F 09/10/24 16:04 Pulse Rate 83 09/10/24 16:04 Respiratory Rate 20 09/10/24 16:04 Blood Pressure 130/98 H 09/10/24 16:04 Pulse Oximetry 100 09/10/24 16:04 Oxygen Delivery Room Air 09/10/24 16:04 Temperature 98.0 F 09/10/24 16:04 Pulse Rate 83 09/10/24 20:10 Respiratory Rate 18 09/10/24 20:10 Blood Pressure 133/79 09/10/24 20:10 Pulse Oximetry 100 09/10/24 20:10 Oxygen Delivery Room Air 09/10/24 16:04 <Avinash Mzea MD - Last Filed: 09/11/24 07:58> Lab Data Result diagrams: 09/10/24 16:25 09/10/24 16:25 <Morteza Pelayo MD - Last Filed: 09/10/24 18:59> Labs: Lab Results 09/10/24 09/10/24 09/10/24 Range/Units 16:25 16:25 16:32 WBC 12.5 H (4.5-10.0) K/mm3 RBC 5.01 (4.2-5.4) M/mm3 Hgb 14.6 (12.0-15.0) g/dL Hct 45.1 (37.0-47.0) % MCV 90.0 (80-100) fl MCH 29.1 (26-34) pg MCHC 32.4 (32-36) g/dl RDW 13.1 (11.5-14.5) % Plt Count 402 H (150-375) k/mm3 MPV 10.2 (7.4-10.4) fl Immature Gran % (Auto) 0.4 (0-0.5) % Neut % (Auto) 84.7 H (45.5-73.1) % Lymph % (Auto) 9.6 L (18.3-44.2) % [place] % (Auto) 4.7 (2.6-8.5) % Eos % (Auto) 0.3 (0-4.4) % Baso % (Auto) 0.3 (0.2-1.2) % Lymph # (Auto) 1.20 (0.9-3.2) K/mm3 [place] # (Auto) 0.6 (0.1-0.6) K/mm3 Eos # (Auto) 0.0 (0-0.3) K/mm3 Baso # (Auto) 0.0 (0.0-0.1) K/mm3 Abs Immat Gran (auto) 0.05 H (0.00-0.031) K/mm3 Absolute Neuts (auto) 10.6 H (1.3-6.7) K/mm3 Absolute Nucleated RBC 0.000 (0.0-0.012) K/mm3 Nucleated RBC % 0.0 (0.0-0.2) % Sodium 139 (137-145) mmol/L Potassium 4.3 (3.4-5.0) mmol/L Chloride 108 H (98-107) mmol/L Carbon Dioxide 19 L (22-30) mmol/L Anion Gap 12 (4-12) mmol/L BUN 7 (7-17) mg/dL Creatinine 0.68 L (0.7-1.0) mg/dL Estim Creat Clear Calc 161 ml/min Estimated GFR > 60 (59 - ) Glucose 108 (65-110) mg/dL Calcium 9.9 (8.4-10.2) mg/dL Total Bilirubin 0.5 (0.2-1.3) mg/dL AST 52 H (14-36) U/L ALT 33 (6-35) U/L Alkaline Phosphatase 97 (38-126) U/L Total Protein 8.0 (6.3-8.2) g/dL Albumin 4.7 (3.5-5.1) g/dL TSH 0.249 L Cancelled (0.465-4.680) uIU/mL Urine Color Yellow (Yellow) Urine Appearance Turbid H (Clear) Urine pH 8.0 (5.0-9.0) Ur Specific Lee 1.021 (1.001-1.035) Urine Protein Trace (Negative) mg/dL Urine Glucose (UA) Negative (Negative) mg/dL Urine Ketones 1+ H (Negative) mg/dL Ur Blood (Man) 1+ H (Negative) Urine Nitrate Negative (Negative) Urine Bilirubin Negative (Negative) Urine Urobilinogen 1.0 (<2.0) mg/dL Add Ur Microanalysis Reviewed Leukocyte Esterase Rfl Trace H (Negative) RICHELLE/UL Urine RBC 21-50 H (0-2) /hpf Urine WBC 6-10 H (0-3) /hpf Ur Squamous Epith Cells Many H (Few) /hpf Urine Bacteria 4+ H /hpf Urine Casts 3-5 POC Urine HCG, Qual Negative (Negative) Salicylates < 1.0 L (2-20) mg/dL Urine Opiates Screen Negative (Negative) Urine Methadone Screen Negative (Negative) Acetaminophen < 10 L (10-30) ug/mL Ur Barbiturates Screen Negative (Negative) Ur Phencyclidine Scrn Negative (Negative) Ur Amphetamine Screen Negative (Negative) U Benzodiazepines Scrn Negative (Negative) Urine Cocaine Screen Negative (Negative) U Cannabinoids Screen Positive A (Negative) Ethyl Alcohol < 10 (<10) mg/dL SARS-CoV-2 RNA (RT-PCR) Negative (Negative) <Morteza Pelayo MD - Last Filed: 09/10/24 18:59> Lab Results 09/10/24 09/10/24 09/10/24 Range/Units 16:25 16:25 16:32 WBC 12.5 H (4.5-10.0) K/mm3 RBC 5.01 (4.2-5.4) M/mm3 Hgb 14.6 (12.0-15.0) g/dL Hct 45.1 (37.0-47.0) % MCV 90.0 (80-100) fl MCH 29.1 (26-34) pg MCHC 32.4 (32-36) g/dl RDW 13.1 (11.5-14.5) % Plt Count 402 H (150-375) k/mm3 MPV 10.2 (7.4-10.4) fl Immature Gran % (Auto) 0.4 (0-0.5) % Neut % (Auto) 84.7 H (45.5-73.1) % Lymph % (Auto) 9.6 L (18.3-44.2) % [place]ro % (Auto) 4.7 (2.6-8.5) % Eos % (Auto) 0.3 (0-4.4) % Baso % (Auto) 0.3 (0.2-1.2) % Lymph # (Auto) 1.20 (0.9-3.2) K/mm3 [place] # (Auto) 0.6 (0.1-0.6) K/mm3 Eos # (Auto) 0.0 (0-0.3) K/mm3 Baso # (Auto) 0.0 (0.0-0.1) K/mm3 Abs Immat Gran (auto) 0.05 H (0.00-0.031) K/mm3 Absolute Neuts (auto) 10.6 H (1.3-6.7) K/mm3 Absolute Nucleated RBC 0.000 (0.0-0.012) K/mm3 Nucleated RBC % 0.0 (0.0-0.2) % Sodium 139 (137-145) mmol/L Potassium 4.3 (3.4-5.0) mmol/L Chloride 108 H (98-107) mmol/L Carbon Dioxide 19 L (22-30) mmol/L Anion Gap 12 (4-12) mmol/L BUN 7 (7-17) mg/dL Creatinine 0.68 L (0.7-1.0) mg/dL Estim Creat Clear Calc 161 ml/min Estimated GFR > 60 (59 - ) Glucose 108 (65-110) mg/dL Calcium 9.9 (8.4-10.2) mg/dL Total Bilirubin 0.5 (0.2-1.3) mg/dL AST 52 H (14-36) U/L ALT 33 (6-35) U/L Alkaline Phosphatase 97 (38-126) U/L Total Protein 8.0 (6.3-8.2) g/dL Albumin 4.7 (3.5-5.1) g/dL TSH 0.249 L Cancelled (0.465-4.680) uIU/mL Urine Color Yellow (Yellow) Urine Appearance Turbid H (Clear) Urine pH 8.0 (5.0-9.0) Ur Specific Lee 1.021 (1.001-1.035) Urine Protein Trace (Negative) mg/dL Urine Glucose (UA) Negative (Negative) mg/dL Urine Ketones 1+ H (Negative) mg/dL Ur Blood (Man) 1+ H (Negative) Urine Nitrate Negative (Negative) Urine Bilirubin Negative (Negative) Urine Urobilinogen 1.0 (<2.0) mg/dL Add Ur Microanalysis Reviewed Leukocyte Esterase Rfl Trace H (Negative) RICHELLE/UL Urine RBC 21-50 H (0-2) /hpf Urine WBC 6-10 H (0-3) /hpf Ur Squamous Epith Cells Many H (Few) /hpf Urine Bacteria 4+ H /hpf Urine Casts 3-5 POC Urine HCG, Qual Negative (Negative) Salicylates < 1.0 L (2-20) mg/dL Urine Opiates Screen Negative (Negative) Urine Methadone Screen Negative (Negative) Acetaminophen < 10 L (10-30) ug/mL Ur Barbiturates Screen Negative (Negative) Ur Phencyclidine Scrn Negative (Negative) Ur Amphetamine Screen Negative (Negative) U Benzodiazepines Scrn Negative (Negative) Urine Cocaine Screen Negative (Negative) U Cannabinoids Screen Positive A (Negative) Ethyl Alcohol < 10 (<10) mg/dL SARS-CoV-2 RNA (RT-PCR) Negative (Negative) <Avinash Meza MD - Last Filed: 09/11/24 07:58> Discharge Plan Discharge Clinical Impression: Urinary tract infection, Withdrawal complaint <Morteza Pelayo MD - Last Filed: 09/10/24 18:59> Patient Disposition: Home <Morteza Pelayo MD - Last Filed: 09/10/24 18:59> Condition: Stable <Morteza Pelayo MD - Last Filed: 09/10/24 18:59> Instructions: Antibiotic Form <Morteza Pelayo MD - Last Filed: 09/10/24 18:59> Additional Instructions: Zofran as needed for nausea control. Follow a clear liquid diet for the next 1-3 days. Keflex as directed for the urinary tract infection. Have close follow-up with your primary care physician. If you have any worsening symptoms then please call or return to the emergency department. <Morteza Pelayo MD - Last Filed: 09/10/24 18:59> Patient Language: Bhutanese <Morteza Pelayo MD - Last Filed: 09/10/24 18:59> Prescriptions: New cephalexin 500 mg capsule 500 mg PO Q8H 7 Days Qty: 21 0RF ondansetron 4 mg tablet,disintegrating 4 mg PO Q8H PRN (Reason: nausea and vomiting) Qty: 14 0RF No Action Nexplanon 68 mg Implant 1 implant SUBDERMAL ONCE gabapentin 300 mg capsule 300 mg PO HS Qty: 20 0RF <Morteza Pelayo MD - Last Filed: 09/10/24 18:59> Follow-up/Referrals: PHYSICIAN NOT ON STAFF,NONSTAFF [Primary Care Provider] - <Morteza Pelayo MD - Last Filed: 09/10/24 18:59> Stand Alone Forms: Work/School Release IP <Morteza Pelayo MD - Last Filed: 09/10/24 18:59>
[2024-09-10] MEDS: CEPHALEXIN 500 MG CAPSULE PO (18:20)
[2024-09-10 20:10] VITALS: BP 133/79; PULSE 83; RESP 18; O2SAT 100
== END 2024-09-10 20:11 | disposition home or self-care (01) ==
PROVIDERS: Emergency Medicine; Emergency Provider Emergency Medicine
DX: N39.0 Urinary tract infection, site not specified (principal); F19.239 Other psychoactive substance dependence with withdrawal, unspecified; F41.9 Anxiety disorder, unspecified; R20.8 Other disturbances of skin sensation; Z11.52 Encounter for screening for COVID-19; J45.909 Unspecified asthma, uncomplicated; N32.89 Other specified disorders of bladder; F31.9 Bipolar disorder, unspecified; F98.8 Other specified behavioral and emotional disorders with onset usually occurring in childhood and adolescence; F17.290 Nicotine dependence, other tobacco product, uncomplicated
CPT/HCPCS: 36415; 80053; 80143; 80179; 80307; 81001; 81025; 82077; 84443; 85025; 87635; 99284; A9270